=== PATIENT | female | born 1990 | race Caucasian/White ===

== ENCOUNTER 2019-12-06 18:27 | Emergency (ER) | payer OTHER, SELFPAY ==
--- NOTE | 2019-12-06 20:28 | ER ---
Nurse's Notes [facility] Name: Opal Tapia Age: 28 yrs Sex: Female : 1990 Arrival Date: 12/06/2019 Time: 18:31 Bed 19 Private MD: Diagnosis: Cellulitis and acute lymphangitis of other parts of limb;Fever of other and unknown origin Presentation: 12/05 18:48 Chief complaint: Patient states: Spider bite on Tuesday, went to [facility] and they gave me jl7 Keflex yesterday, woke this morning and it's a lot more painful today with redness and hot to touch. Also feels sort of numb and tingly. Coronavirus screen: The patient has NOT traveled to a country currently being monitored by the CDC within the last 14 days. Proceed with normal triage procedures. The patient has NOT had contact with any known and/or suspected case of coronavirus. Proceed with normal triage procedures. Ebola Screen: No symptoms or risks identified at this time. Initial Sepsis Screen: Does the patient meet any 2 criteria? HR > 90 bpm. No. Patient's initial sepsis screen is negative. Does the patient have a suspected source of infection? Yes: Skin breakdown/wound. Risk Assessment: Do you want to hurt yourself or someone else? Patient reports no desire to harm self or others. Onset of symptoms was November 30, 2019. 18:48 Method Of Arrival: Ambulatory [facility] 18:48 Acuity: MER 3 jl7 Triage Assessment: 18:53 Bite description: bite sustained to lateral aspect of left knee is infected, from jl7 insect was sustained 6 days by a spider, animal information: vaccination(s) is unknown. General: Appears in no apparent distress. uncomfortable, Behavior is calm, cooperative, appropriate for age. Pain: Complains of pain in lateral aspect of left knee Pain currently is 7 out of 10 on a pain scale. DIRECTOR IT: 18:53 LMP 11/21/2019 jl7 Historical: - Allergies: 18:53 tramadol; jl7 - Home Meds: 18:53 None [Active]; jl7 - PMHx: 18:53 Crohn's; jl7 - PSHx: 18:53 Cholecystectomy; jl7 - Immunization history:: Adult Immunizations not up to date. - Social history:: Smoking status: Reported history of juuling and/or vaping. - Family history:: not pertinent. Screenin:04 Abuse screen: Denies threats or abuse. Denies injuries from another. Nutritional rv screening: No deficits noted. Tuberculosis screening: No symptoms or risk factors identified. Fall Risk None identified. Assessment: 20:03 General: Appears in no apparent distress. Behavior is calm, cooperative. Pain: rv Complains of pain in left leg. Neuro: Level of Consciousness is awake, alert, obeys commands, Oriented to person, place, time, situation. Cardiovascular: Patient's skin is warm and dry. Respiratory: Airway is patent. Derm: Skin Skin is pink, warm \T\ dry. Abscess located on left leg. Vital Signs: 18:48 BP 124 / 84; Pulse 94; Resp 17 S; Temp 100(TE); Pulse Ox 98% on R/A; Weight 53.07 kg jl7 (R); Height 5 ft. 0 in. (152.40 cm) (R); Pain 7/10; 21:27 BP 118 / 86; Pulse 89; Resp 17; Temp 99.1; Pulse Ox 100% on R/A; rv 18:48 Body Mass Index 22.85 (53.07 kg, 152.40 cm) jl7 ED Course: 18:31 Patient arrived in ED. ag5 18:52 Triage completed. jl7 18:53 Arm band placed on right wrist. jl7 19:09 Mitchell Mccurdy MD is Attending Physician. francisco 20:03 Rj Cleveland, LAINA is Primary Nurse. rv 20:04 Patient has correct armband on for positive identification. Pulse ox on. NIBP on. rv 20:26 Solomon Hadley MD is Referral Physician. francisco 21:29 Assist provider with I \T\ D: of an abscess on left LOWER LEG Set up I\T\D tray. Performed rv by Mitchell Mccurdy MD Culture sent to lab. Wound packed. 4X4s, Dressing with Neosporin and 4X4s, Patient tolerated well. Patient did not have IV access during this emergency room visit. 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 Exp: rv 10/11/2021. Lot #: [id number]. } Route: IM; Site: left deltoid; 21:28 Follow up: Response: No adverse reaction rv 21:28 Drug: Lidocaine-Epinephrine -1%: (1:100,000) 8 ml {Note: USED BY DR MCCURDY.} Volume: rv 20 ml; Route: Infiltration; 21:29 Follow up: Response: No adverse reaction rv 21:28 Drug: Zofran (Ondansetron) 4 mg Route: PO; rv 21:28 Follow up: Response: Medication administered at discharge. rv Outcome: 20:27 Discharge ordered by . [facility] 21:30 Discharged to home ambulatory. rv 21:30 Condition: good 21:30 Discharge instructions given to patient, Instructed on discharge instructions, follow up and referral plans. medication usage, wound care, Demonstrated understanding of instructions, follow-up care, medications, wound care, Prescriptions given X 4. 21:30 Patient left the ED. rv Addendum: 12/10/2019 08:05 Addendum: Culture Results: Positive wound culture. Bacteria is resistant to, has i w intermediate sensitivity, or is not tested against prescribed antibiotics. Report given to SIRIA for further evaluation and then to structural biologist for follow up with patient. Phone call Attempt #1 left voice mail with call back number. 09:58 Addendum: Culture Results: Phone call Attempt #2 pt called back, states symptoms have i w improved, no need for further intervention. Signatures: Mitchell Mccurdy MD MD cha Williams, Irene, RN Sana Bales RN RN jl7 Rj Cleveland, RN Duane Torres 5
[2019-12-06] MEDS ORDERED: LIDOCAINE 1% W/EPI 1:100,000 MDV 20 ML VIAL ONE (20:29)
[2019-12-06] MEDS ORDERED: DOXYCYCLINE 100 MG CAP PO ONE (20:29)
[2019-12-06] MEDS ORDERED: SMZ./TMP. 800/160 MG TABLET ONE (20:29)
--- NOTE | 2019-12-06 20:29 | EDPHYS ---
Physician Documentation [facility] Name: Opal Tapia Age: 28 yrs Sex: Female : 1990 Arrival Date: 12/06/2019 Time: 18:31 Bed 19 Private MD: ED Physician Mitchell Mccurdy HPI: 12/05 20:23 This 28 yrs old Female presents to ER via Ambulatory with complaints of francisco Insect Bite. 20:23 The patient presents with decreased range of motion, pain, swelling, tenderness. The francisco complaints affect the lateral aspect of left knee. Context: The problem was sustained at home, resulted from bite. Onset: The symptoms/episode began/occurred 3 day(s) ago. Modifying factors: The symptoms are alleviated by elevating leg, the symptoms are aggravated by movement, bending knee. Associated signs and symptoms: The patient has no apparent associated signs or symptoms. Treatment prior to arrival includes: prescription medications. Severity of symptoms: At their worst the symptoms were moderate, in the emergency department the symptoms are unchanged. The patient has not experienced similar symptoms in the past. 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 - Social history:: Smoking status: Reported history of juuling and/or vaping. - Family history:: not pertinent. ROS: 20:23 Constitutional: Negative for fever, chills, and weight loss, Eyes: Negative for injury, francisco pain, redness, and discharge, ENT: Negative for injury, pain, and discharge, Neck: Negative for injury, pain, and swelling, Cardiovascular: Negative for chest pain, palpitations, and edema, Respiratory: Negative for shortness of breath, cough, wheezing, and pleuritic chest pain, Abdomen/GI: Negative for abdominal pain, nausea, vomiting, diarrhea, and constipation, Back: Negative for injury and pain, : Negative for injury, bleeding, discharge, and swelling, Skin: Negative for injury, rash, and discoloration, Neuro: Negative for headache, weakness, numbness, tingling, and seizure, Psych: Negative for depression, anxiety, suicide ideation, homicidal ideation, and hallucinations, Allergy/Immunology: Negative for hives, rash, and allergies, Endocrine: Negative for neck swelling, polydipsia, polyuria, polyphagia, and marked weight changes, Hematologic/Lymphatic: Negative for swollen nodes, abnormal bleeding, and unusual bruising. 20:23 MS/extremity: Positive for pain, swelling, tenderness, of the left leg. Exam: 20:23 Constitutional: This is a well developed, well nourished patient who is awake, alert, francisco and in no acute distress. Head/Face: Normocephalic, atraumatic. Eyes: Pupils equal round and reactive to light, extra-ocular motions intact. Lids and lashes normal. Conjunctiva and sclera are non-icteric and not injected. Cornea within normal limits. Periorbital areas with no swelling, redness, or edema. ENT: Nares patent. No nasal discharge, no septal abnormalities noted. Tympanic membranes are normal and external auditory canals are clear. Oropharynx with no redness, swelling, or masses, exudates, or evidence of obstruction, uvula midline. Mucous membranes moist. Neck: Trachea midline, no thyromegaly or masses palpated, and no cervical lymphadenopathy. Supple, full range of motion without nuchal rigidity, or vertebral point tenderness. No Meningismus. Chest/axilla: Normal chest wall appearance and motion. Nontender with no deformity. No lesions are appreciated. Cardiovascular: Regular rate and rhythm with a normal S1 and S2. No gallops, murmurs, or rubs. Normal PMI, no JVD. No pulse deficits. Respiratory: Lungs have equal breath sounds bilaterally, clear to auscultation and percussion. No rales, rhonchi or wheezes noted. No increased work of breathing, no retractions or nasal flaring. Abdomen/GI: Soft, non-tender, with normal bowel sounds. No distension or tympany. No guarding or rebound. No evidence of tenderness throughout. Back: No spinal tenderness. No costovertebral tenderness. Full range of motion. Skin: Warm, dry with normal turgor. Normal color with no rashes, no lesions, and no evidence of cellulitis. Neuro: Awake and alert, GCS 15, oriented to person, place, time, and situation. Cranial nerves II-XII grossly intact. Motor strength 5/5 in all extremities. Sensory grossly intact. Cerebellar exam normal. Normal gait. Psych: Awake, alert, with orientation to person, place and time. Behavior, mood, and affect are within normal limits. 20:23 Musculoskeletal/extremity: Extremities: decreased ROM, erythema, pain, DVT Exam: negative Homans' sign noted on exam, no appreciated bluish discoloration, pain, swelling, tenderness, erythema, increased warmth, that is moderate, of the left leg. Vital Signs: 18:48 BP 124 / 84; Pulse 94; Resp 17 S; Temp 100(TE); Pulse Ox 98% on R/A; Weight 53.07 kg jl7 (R); Height 5 ft. 0 in. (152.40 cm) (R); Pain 7/10; 21:27 BP 118 / 86; Pulse 89; Resp 17; Temp 99.1; Pulse Ox 100% on R/A; rv 18:48 Body Mass Index 22.85 (53.07 kg, 152.40 cm) 7 Procedures: 20:25 I \T\ D: Incision and drainage was performed for an abscess of the left Prepped with [facility] Betadine, Anesthetized with 8 ml's 1% Lidocaine w/ Epi. Incised with #11 blade. Drained moderate amount Packed with iodoform gauze, Dressing: non-Adherent dressing. MDM: 19:09 Patient medically screened. [facility] 20:25 Data reviewed: vital signs, nurses notes. [facility] 12/05 20:22 Order name: Wound Culture [facility] 12/05 20:51 Order name: Urine Dipstick--Ancillary (enter results) [facility] 12/05 20:51 Order name: Urine --Ancillary (enter results) [facility] 12/05 20:22 Order name: Dressing - Wound; Complete Time: 20:59 [facility] 12/05 20:22 Order name: Gloves, Sterile; Complete Time: 20:59 [facility] 12/05 20:22 Order name: Setup Suture Tray; Complete Time: 20:59 [facility] 12/05 20:22 Order name: Urine Dipstick-Ancillary (obtain specimen); Complete Time: 20:59 [facility] 12/05 20:22 Order name: Urine Test (obtain specimen); Complete Time: 20:59 [facility] Administered Medications: 20:30 Drug: Doxycycline 200 mg Route: PO; rv 21:28 Follow up: Response: No adverse reaction rv 20:30 Drug: Bactrim (160 mg-800 mg (DS) 1 tablet Route: PO; rv 21:28 Follow up: Response: No adverse reaction rv 20:59 Drug: Tetanus-Diphtheria Toxoid Adult 0.5 ml {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 Exp: rv 10/11/2021. Lot #: [id number]. } Route: IM; Site: left deltoid; 21:28 Follow up: Response: No adverse reaction rv 21:28 Drug: Lidocaine-Epinephrine -1%: (1:100,000) 8 ml {Note: USED BY DR MCCURDY.} Volume: rv 20 ml; Route: Infiltration; 21:29 Follow up: Response: No adverse reaction rv 21: Drug: Zofran (Ondansetron) 4 mg Route: PO; rv 21:28 Follow up: Response: Medication administered at discharge. rv Disposition: 12/06/19 20:27 Discharged to Home. Impression: Cellulitis and acute lymphangitis of other parts of limb, Fever of other and unknown origin. - Condition is Stable. - Discharge Instructions: Skin Abscess, Insect Bite, Sjas-ol-Erno, Insect Bite, Skin Abscess, Ijsj-ed-Pzzh, Cellulitis, Adult, [id number]. - Prescriptions for Bactroban 2 % Topical Ointment - Apply to affected area 1 application by TOPICAL route every 12 hours; 30 gram. Doxycycline Hyclate 100 mg Oral Tablet - take 1 tablet by ORAL route every 12 hours; 20 tablet. Motrin IB 200 mg Oral Tablet - take 2 tablet by ORAL route every 6 hours As needed as needed with food; 30 tablet. Bactrim DS 800- 160 mg Oral Tablet - take 1 tablet by ORAL route every 12 hours for 10 days; 20 tablet. - Medication Reconciliation Form, Thank You Letter, Antibiotic Education, Prescription Opioid Use form. - Follow up: Private Physician; When: 2 - 3 days; Reason: Recheck today's complaints, Continuance of care, Re-evaluation by your physician. Follow up: Solomon Hadley MD; When: 2 - 3 days; Reason: Recheck today's complaints, Continuance of care, Re-evaluation by your physician. - Problem is new. - Symptoms have improved. Signatures: Dispatcher [employer] EDMitchell Martinez MD MD cha Leal, Jahala, RN RN jl7 Rj Cleveland, RN RN rv Corrections: (The following items were deleted from the chart) 21:30 20:27 12/06/2019 20:27 Discharged to Home. Impression: Cellulitis and acute rv lymphangitis of other parts of limb; Fever of other and unknown origin. Condition is Stable. Forms are Medication Reconciliation Form, Thank You Letter, Antibiotic Education, Prescription Opioid Use. Follow up: Private Physician; When: 2 - 3 days; Reason: Recheck today's complaints, Continuance of care, Re-evaluation by your physician. Follow up: Solomon Hadley; When: 2 - 3 days; Reason: Recheck today's complaints, Continuance of care, Re-evaluation by your physician. Problem is new. Symptoms have improved. francisco
[2019-12-06] MEDS ORDERED: TETANUS & DIPHTHERIA TOX,ADULT 0.5 ML VIAL ONE (20:52)
[2019-12-06] MEDS ORDERED: ONDANSETRON 4 MG (ODT) TAB ONE (21:25)
[2019-12-06 21:45] VITALS: BP 118/86; TEMP 99.1; O2SAT 100
[2019-12-06 22:07] LABS: Urine Blood 2+ (NEG); Urine Glucose NEGATIVE (NEG); Urine Protein NEGATIVE (NEG); Urine pH 7.5 (5.0-7.0)
== END 2019-12-06 21:30 | disposition home or self-care (01) ==
LOC: ER 18:27
PROC: 0J9P0ZZ Drainage of Left Lower Leg Subcutaneous Tissue and Fascia, Open Approach (ICD-10-PCS; principal; 2019-12-06)
DX: L03.116 Cellulitis of left lower limb (principal); L03.126 Acute lymphangitis of left lower limb; R50.9 Fever, unspecified; Z23 Encounter for immunization; Z88.5 Allergy status to narcotic agent
CPT/HCPCS: 81003; 81025; 87070; 87077; 87186; 87205; 90471; 90714; 99284

== ENCOUNTER 2019-12-08 14:05 | Emergency (ER) | payer OTHER, SELFPAY ==
--- OUTSIDE RECORDS SUMMARY | 2019-12-08 14:07 | XMS REPORT | Summary of Care ---
:1990 Author Organization [facility] Address [address] [place] [id number] Care Team Providers Name Role Phone Pcp, Patient Does Not Have A Insurance Hmo Pcp, Patient Does Not Have A Primary Care Provider Reason for Visit Reason Comments Insect Bite Auth/Cert Status Reason Specialty Diagnoses / Referred By Referred To Procedures Contact Contact [facility] [address] [place] [address] [place] [address] Encounter Details Date Type Department Care Team Description 12/04/2019 Emergency [facility] Song, Bug bite with infection , Department PAC initial encounter [address] [place] [address] [place] [address] (Primary Dx) [place] [address] [facility] [address] [place] [address] Allergies No Known Allergiesdocumented as of this encounter (statuses as of 12/04/2019) Medications Medication Sig Dispensed Refills Start Date End Date Status mupirocin 2 % Apply to area(s) 22 g 0 12/04/2019 Active ointmentIndications: 3 (three) times Bug bite with daily. infection, initial encounter cephALEXin (KEFLEX) Take 1 capsule by 30 capsule 0 12/04/2019 12/14/2019 Active 500 mg mouth 3 (three) capsuleIndications: times daily for Bug bite with 10 days. infection, initial encounter documented as of this encounter (statuses as of 12/04/2019) Active Problems No known active problemsdocumented as of this encounter (statuses as of 2019) Social History Tobacco Use Types Packs/Day Years Used Date Never Assessed Sex Assigned at Date Recorded Not on file Job Start Date Occupation Industry Not on file Not on file Not on file Travel History Travel Start Travel End No recent travel history available. documented as of this encounter Last Filed Vital Signs Vital Sign Reading Time Taken Comments Blood Pressure 128/75 12/04/2019 7:50 PM CDT Pulse 97 12/04/2019 7:50 PM CDT Temperature 36.8 C (98.2 F) 12/04/2019 7:50 PM CDT Respiratory Rate 16 12/04/2019 7:50 PM CDT Oxygen Saturation 100% 12/04/2019 7:50 PM CDT Inhaled Oxygen Concentration - - Weight 54.4 kg (120 lb) 12/04/2019 7:50 PM CDT Height 152.4 cm (5') 12/04/2019 7:50 PM CDT Body Mass Index 23.44 12/04/2019 7:50 PM CDT documented in this encounter Discharge Instructions AttachmentsThe following attachments cannot be sent through Care Everywhere.Bites and Stings, Insect (Estonian)documented in this encounter Plan of Treatment Health Maintenance Due Date Last Done Comments VARICELLA VACCINES (1 of 2 - 12/19/1992 2-dose childhood series) DTaP,Tdap,and Td Vaccines (1 - 12/19/2002 Tdap) PAP SMEAR 12/19/2012 INFLUENZA VACCINE (#1) 2019 PNEUMOCOCCAL 0-64 YEARS COMBINED Aged Out No longer eligible based on SERIES patient's age to complete this topic documented as of this encounter Procedures Procedure Name Priority Date/Time Associated Diagnosis Comments NOTICE OF PRIVACY Routine 12/04/2019 7:46 PM CDT PRACTICES CONSENT/REFUSAL FOR Routine 12/04/2019 7:46 PM CDT DIAGNOSIS AND TREATMENT documented in this encounter Results Not on filedocumented in this encounter Visit Diagnoses Diagnosis Bug bite with infection, initial encounter - Primary documented in this encounter Insurance Payer Benefit Plan / Subscriber ID Effective Dates Phone Address Type Group [facility] [place] [facility] xxxxxxxxx 2019-Present Medicaid HEALTH PLAN - HEALTH MANAGED MEDICAID documented as of this encounter
--- OUTSIDE RECORDS SUMMARY | 2019-12-08 14:07 | XMS REPORT ---
:1990 [facility] [address] [place] [address] Care Team Providers Name Role Phone DON JOE Primary Care Provider Unavailable DON JOE M.D. Unavailable Unavailable Problems This patient has no known problems. Allergies, Adverse Reactions, Alerts This patient has no known allergies or adverse reactions. Medications This patient has no known medications. Results Test Description Test Time Test Comments Text Results Atomic Results Result Comments CG, Serum, Qualitative 2017-09-05 18:00:00 Test Item Value Reference Range Comments Preg Qual [Se] (test code=BSHCG) Negative Negative
--- OUTSIDE RECORDS SUMMARY | 2019-12-08 14:07 | XMS REPORT | Summary of Care ---
:1990 Author Organization [facility] - [facility] Address [address] [place] [address] Care Team Providers Name Role Phone Pcp, Patient Does Not Have A Insurance Hmo Pcp, Patient Does Not Have A Primary Care Provider Reason for Visit Reason Comments Cellulitis Auth/Cert Status Reason Specialty Diagnoses / Referred By Referred To Procedures Contact Contact [facility] [address] [place] [id number] Encounter Details Date Type Department Care Team Description 12/06/2019 Emergency [facility]-Emergency Department Gume Cifuentes MD [address] [place] [address] [id number] [place], [place] [id number] Allergies No Known Allergiesdocumented as of this encounter (statuses as of 12/06/2019) Medications Medication Sig Dispensed Refills Start Date [...] as of this encounter (statuses as of 12/06/2019) Active Problems No known active problemsdocumented as [...] Sign Reading Time Taken Comments Blood Pressure 114/70 12/05/2019 10:57 PM CDT Pulse 95 12/05/2019 10:57 PM CDT Temperature 37.5 C (99.5 F) 12/05/2019 10:57 PM CDT Respiratory Rate 20 12/05/2019 10:57 PM CDT Oxygen Saturation 100% 12/05/2019 10:57 PM CDT Inhaled Oxygen Concentration - - Weight 53.1 kg (117 lb) 12/05/2019 10:57 PM CDT Height - - Body Mass Index 22.85 12/04/2019 7:50 PM CDT documented in this encounter Discharge Instructions InstructionsGume Cifuentes MD - 12/06/2019 RETURN FOR ANY QUESTIONS OR CONCERNS Today you were seen by Gume Cifuentes Jr., MD You were seen today for Chief Complaint Patient presents with Cellulitis Your ER diagnosis was No diagnosis found. NO LIFE-THREATENING FINDINGS ON TODAY'S EXAM. YOUR PRESCRIPTIONS : Check out [employer] for medication discounts Medication List ASK your doctor about these medications cephALEXin 500 mg capsule Commonly known as: KEFLEX Take 1 capsule by mouth 3 (three) times daily for 10 days. mupirocin 2 % ointment Commonly known as: BACTROBAN OINT Apply to area(s) 3 (three) times daily. ER precautions and follow up : 1. Return to ER if your symptoms should worsen or fail to improve within 72 hours. 2. The care provided in the emergency room was for acute problems only. 3. You should follow up with your primary care provider within 72 hours. 4. Fill and take all your medications as prescribed. 5. Make sure you are staying adequately hydrated. Busque attencion immediatamente si usted tiene los sitomas sigue, vuelve peor o si hay sitomas nuevas o para cualquiera preoccupacion incluyendo dolor del pecho , falta aire, se siente debile, mas fievre, mas dolor, nausea, vomitando, sangrando que no es normal, confusion, baja or pierdas conciencia. MAY FOLLOW-UP WITH A PROVIDER OF YOUR CHOICE, SUCH : 1. A PHYSICIAN OF YOUR CHOICE 2. [facility], . LOCATIONS IN [facility] 3. [facility], [address], [place]; OR, IF YOU WISH TO FOLLOW-UP WITHIN THE [facility], MAY TRY THESE OPTIONS (CLINIC APPOINTMENTS AVAILABLE ON [id number] BASIS): 1. SCHEDULE AN APPOINTMENT ONLINE AT [email or web address] 2. OR CALL THE [facility] AT OR 3. OR CALL YOUR [facility] PHYSICIAN'S OFFICE DIRECTLY IF YOU ARE ALREADY AN ESTABLISHED [facility] PATIENT. [facility] RETURN TO WORK / SCHOOL EXCUSE Opal Tapia WAS SEEN IN THE ER AND DISCHARGED 12/06/2019 TODAY, 12:41 AM & May return to Work / School / Incarceration on X with activity as tolerated indicated below. ___The following limitations apply until pt is seen by Physician and cleared to return to normal activity. _X_ Off for two days and return to activity as tolerated at work or school ___ No Sports ___ No work ___ Do not return until fever free for 24 hours. ___ No school GUME CIFUENTES Jr., MD [facility] [address] [place] [address] [place] [address] ### The patient may have been given Narcotic pain medications during their stay in the ED that may show up on a Drug Screen. The hospital discharge paper work will identify these medications. AttachmentsThe following attachments cannot be sent through Care Everywhere.Cellulitis, Discharge Instructions for (Latvian)documented in this encounter Plan of Treatment Health [...] Procedure Name Priority Date/Time Associated Diagnosis Comments CONSENT/REFUSAL FOR Routine 12/05/2019 10:49 PM CDT DIAGNOSIS AND TREATMENT documented in this encounter Results Not on filedocumented in this encounter Administered Medications Medication Order MAR Action Action Date Dose Rate Site cephALEXin (KEFLEX) capsule 500 Given 12/06/2019 12:52 AM CDT 500 mg mg 500 mg, Oral, ONCE, 1 dose, Yesenia 12/06/19 at 0145, EDUARDO, Reason for Anti-Infective: Documented Infection, Documented Infection Site: Skin / Soft Tissue, Duration of Therapy: Other (see Comments) traMADol (ULTRAM) tablet 50 mg Given 12/06/2019 12:54 AM CDT 50 mg 50 mg, Oral, ONCE, 1 dose, Yesneia 12/06/19 at 0200, Routine documented in this encounter Insurance Payer Benefit Plan / Subscriber ID Effective Dates Phone Address Type Group [facility] xxxxxxxxx 2019-Present Medicaid HEALTH PLAN - HEALTH MANAGED MEDICAID documented as of this encounter
--- NOTE | 2019-12-08 15:24 | ER ---
Nurse's Notes [facility] Name: Opal Tapia Age: 28 yrs Sex: Female : 1990 Arrival Date: 12/08/2019 Time: 14:09 Bed 12 Private MD: Diagnosis: Encounter for change or removal of nonsurgical wound dressing Presentation: 12/07 14:22 Chief complaint: Patient states: follow up from abscess I \T\ D, seen here a few days ago dm5 and was told to come back for follow up since she didn't have a PCP. Coronavirus screen: The patient has NOT traveled to a country currently being monitored by the [facility] within the last 14 days. Proceed with normal triage procedures. The patient has NOT had contact with any known and/or suspected case of coronavirus. Proceed with normal triage procedures. Ebola Screen: Patient negative for fever greater than or equal to 101.5 degrees Fahrenheit, and additional compatible Ebola Virus Disease symptoms Patient denies exposure to infectious person. Patient denies travel to an Ebola-affected area in the 21 days before illness onset. No symptoms or risks identified at this time. Initial Sepsis Screen: Does the patient meet any 2 criteria? No. Patient's initial sepsis screen is negative. Does the patient have a suspected source of infection? No. Patient's initial sepsis screen is negative. Risk Assessment: Do you want to hurt yourself or someone else? Patient reports no desire to harm self or others. 14:22 Method Of Arrival: Ambulatory dm5 14:22 Acuity: MER 4 dm5 Historical: - Allergies: 14:24 tramadol; dm5 - PMHx: 15:16 Crohn's; ss - PSHx: 15:16 Cholecystectomy; ss - Immunization history:: Adult Immunizations up to date. - Social history:: Smoking status: unknown. Screenin:25 Abuse screen: Denies threats or abuse. Denies injuries from another. Nutritional ss screening: No deficits noted. Tuberculosis screening: Never had TB. Fall Risk None identified. Assessment: 15:02 General: Appears in no apparent distress. comfortable, Behavior is calm, cooperative, ss Denies fever, feeling ill, fatigue, chills. Pain: Complains of pain in lateral aspect of left calf Pain currently is 5 out of 10 on a pain scale. Neuro: Level of Consciousness is awake, alert, obeys commands, Oriented to person, place, time, situation. Respiratory: Airway is patent Respiratory effort is even, unlabored, Respiratory pattern is regular, symmetrical. Derm: Skin is intact, is healthy with good turgor, Skin is dry, Skin is pink, warm \T\ dry. normal. 15:25 Derm: Abscess located on lateral aspect of left calf is quarter sized, healing well. ss Packing removed and replaced by Hermes LACEY NP. Vital Signs: 14:22 BP 102 / 66; Pulse 77; Resp 18; Temp 98.9; Pulse Ox 100% on R/A; Weight 53.07 kg; dm5 Height 5 ft. (152.40 cm); Pain 5/10; 14:22 Body Mass Index 22.85 (53.07 kg, 152.40 cm) 5 ED Course: 14:09 Patient arrived in ED. mr 14:24 Triage completed. 5 15:10 [facility] Lacey [facility]C [facility] la1 15:10 Mitchell Stiles MD is Attending Physician. la1 15:15 Whitney Edgar, LAINA is Primary Nurse. ss 15:16 Arm band placed on right wrist. ss 15:25 Patient has correct armband on for positive identification. Bed in low position. Call light in reach. 15:26 Patient did not have IV access during this emergency room visit. Recheck of abscess on ss lateral aspect of left calf is healing well. Administered Medications: No medications were administered Outcome: 15:24 Discharge ordered by . la1 15:26 Discharged to home ambulatory. 15:26 Condition: good 15:26 Discharge instructions given to patient, Instructed on discharge instructions, follow up and referral plans. medication usage, Demonstrated understanding of instructions, follow-up care, medications, wound care, Prescriptions given X 1. 15:31 Patient left the ED. Signatures: Ashlie Ayala, LAINA MARINA [facility] Arminda Yuen mr Whitney Edgar RN RN Hermes Lacey FNP-C FNP-[facility]
--- NOTE | 2019-12-08 15:25 | EDPHYS ---
Physician Documentation [facility] Name: Opal Tapia Age: 28 yrs Sex: Female : 1990 Arrival Date: 12/08/2019 Time: 14:09 Bed 12 Private MD: ED Physician Mitchell Stiles HPI: 12/07 15:38 This 28 yrs old Female presents to ER via Ambulatory with complaints of la1 Abscess Recheck. 15:38 Patient presents to ED for recheck of: abscess. The affected area is on the lateral la1 aspect of left calf. Previous treatment: The patient was initially treated 2 day(s) ago, the care was rendered at [facility], Treatment type: The patient's original treatment included an I\T\D. Progress: The patient reports decreased fever, pain, redness, swelling. The patient has not experienced similar symptoms in the past. Historical: - Allergies: 14:24 tramadol; dm5 - PMHx: 15:16 Crohn's; ss - PSHx: 15:16 Cholecystectomy; ss - Immunization history:: Adult Immunizations up to date. - Social history:: Smoking status: unknown. ROS: 15:39 Constitutional: Negative for fever, chills, and weight loss, Cardiovascular: Negative la1 for chest pain, palpitations, and edema, Respiratory: Negative for shortness of breath, cough, wheezing, and pleuritic chest pain, Abdomen/GI: Negative for abdominal pain, nausea, vomiting, diarrhea, and constipation, Back: Negative for injury and pain, : Negative for injury, bleeding, discharge, and swelling, MS/Extremity: Negative for injury and deformity. 15:39 Skin: Positive for abscess. Exam: 15:40 Constitutional: This is a well developed, well nourished patient who is awake, alert, la1 and in no acute distress. Eyes: Pupils equal round and reactive to light, extra-ocular motions intact. ENT: Mucous membranes moist. Cardiovascular: No pulse deficits. Respiratory: No increased work of breathing, MS/ Extremity: Pulses equal, no cyanosis. Neurovascular intact. Full, normal range of motion. 15:40 Skin: abscess, that is moderate sized, of the lateral aspect of left calf, Wound recheck: Abscess: the wound has improved, decreased erythema, decreased surrounding cellulitis, decreased swelling, the packing is not in place. Vital Signs: 14:22 BP 102 / 66; Pulse 77; Resp 18; Temp 98.9; Pulse Ox 100% on R/A; Weight 53.07 kg; dm5 Height 5 ft. (152.40 cm); Pain 5/10; 14:22 Body Mass Index 22.85 (53.07 kg, 152.40 cm) dm5 Procedures: 15:42 I \T\ D: Packed with sterile gauze, Dressing: sterile 4x4 gauze, the patient tolerated la1 the procedure well. MDM: 15:10 Patient medically screened. la1 15:42 Data reviewed: vital signs, nurses notes, and as a result, I will discharge patient. la1 Data interpreted: Pulse oximetry: is not applicable for this patient encounter. Counseling: I had a detailed discussion with the patient and/or guardian regarding: the historical points, exam findings, and any diagnostic results supporting the discharge/admit diagnosis, the need for outpatient follow up, a family practitioner, a general surgeon, to return to the emergency department if symptoms worsen or persist or if there are any questions or concerns that arise at home. Administered Medications: No medications were administered Disposition: 12/08/19 15:24 Discharged to Home. Impression: Encounter for change or removal of nonsurgical wound dressing. - Condition is Stable. - Discharge Instructions: How to Change Your Dressing, Wound Check, How to Change Your Dressing, [id number], Wound Packing. - Prescriptions for Zofran 4 mg Oral Tablet - take 1 tablet by ORAL route every 12 hours As needed; 20 tablet. - Medication Reconciliation Form, Thank You Letter form. - Follow up: Private Physician; When: 2 - 3 days; Reason: Recheck today's complaints, Re-evaluation by your physician. - Problem is new. - Symptoms have improved. Addendum: 12/10/2019 07:23 Co-signature as Attending Physician, Mitchell Stiles MD I agree with the assessment and c campoverde plan of care. Signatures: Ashlie Ayala, RN RN dm5 Mitchell Stiles MD MD cha Smirch, Shelby, RN RN ss Hermes Oliver, MACHINE STEMMER-C MACHINE STEMMER-Cla1 Corrections: (The following items were deleted from the chart) 12/07 15:31 15:24 12/08/2019 15:24 Discharged to Home. Impression: Encounter for change or removal ss of nonsurgical wound dressing. Condition is Stable. Forms are Medication Reconciliation Form, Thank You Letter, Antibiotic Education, Prescription Opioid Use. Follow up: Private Physician; When: 2 - 3 days; Reason: Recheck today's complaints, Re-evaluation by your physician. Problem is new. Symptoms have improved. la1
[2019-12-08 15:38] VITALS: BP 102/66; TEMP 98.9; O2SAT 100
== END 2019-12-08 15:31 | disposition home or self-care (01) ==
LOC: ER 14:05
DX: Z48.00 Encounter for change or removal of nonsurgical wound dressing (principal); Z88.6 Allergy status to analgesic agent
CPT/HCPCS: 99282

== ENCOUNTER 2021-08-11 15:53 | Emergency (ER) | payer OTHER ==
--- OUTSIDE RECORDS SUMMARY | 2021-08-11 15:57 | XMS REPORT | Continuity of Care Document ---
:1990 Author Organization [facility] t Address [address] [place] [address] Care Team Providers Name Role Phone Kimberly JOE Primary Care Physician Unavailable JONN Attending Clinician Unavailable Staci SPENCER Attending Clinician Unavailable Florencia Diaz Attending Clinician Jonn ALLAN Attending Clinician Doctor Unassigned, Name Attending Clinician Unavailable Joanthan IGLESIAS Attending Clinician Unavailable Jonathan Iglesias MD Attending Clinician Pcp, Does Not Have A Attending Clinician 2, Lab Attending Clinician Unavailable Christopher ALLAN Attending Clinician CHRISTOPHER Attending Clinician Unavailable Karyna Holt Attending Clinician KARYNA CALLAHAN Attending Clinician Unavailable DON JOE M.D. Attending Clinician Unavailable JONN Admitting Clinician Unavailable DON JOE M.D., Kimberly Admitting Clinician Unavailcirilo e Payers Payer Name Policy Type Policy Number Effective Date Expiration Date [place] [employer] [id number] 2019 HEALTH 00:00:00 Problems Condition Condition Condition Status Onset Resolution Last Treating Co mments Source Name Details Category Date Date Treatment Clinician Date Weight Weight Disease Active Overview: Univer s loss loss 02-26 Formattin ity of 00:00: g of this [place] note Medical might be Branch different from the original. Added automatic ally from request for surgery [id number] Inflammato Inflammato Disease Active Overview : Univers ry bowel ry bowel 02-26 Formattin ity of disease disease 00:00: g of [place] note Medical might be Branch different from the original. Added automatic ally from request for surgery [id number] B12 B12 Disease Active Univers deficiency deficiency 3-25 it y of 00:00: [place] 00 Medical Branch Folate Folate Disease Active 2019- Univers deficiency deficiency 3-25 it y of 00:00: [place] 00 Medical Branch Elevated Elevated Disease Active 2019- Unive rs serum serum 3-25 ity of protein protein 00:00: [place] level level 00 Medical Branch Chronic Chronic Disease Active 2019- Univers fatigue fatigue 3-22 ity of 00:00: [place] 00 Medical Branch No known No known Disease Unive rs active active ity of problems problems [facility] Chronic Chronic Disease Active Univers bronchitis bronchitis it y of [facility] Crohn Crohn Disease Active Univers disease disease ity of [facility] Asthma Asthma Disease Active Univers ity of [facility] Allergic Allergic Disease Active Unive rs rhinitis rhinitis ity of [facility] Allergies, Adverse Reactions, Alerts Allergy Allergy Status Severity Reaction(s) Onset Inactive Treating Comm ents Source Name Type Date Date Clinician TRAMADOL DRUG Active High N/V Univers INGREDI 3-20 ity of 00:00: [place] 00 [facility] Tramadol Propensi Active Nausea Univer s ty to and/or 3-20 ity of adverse Vomiting 00:00: [place] reaction 00 Medical s Branch NO KNOWN Drug Active Univers ALLERGIE Class ity of S [facility] Social History Social Habit Start Date Stop Date Quantity Comments Source Exposure to Not sure [facility] SARS-CoV-2 [facility] (event) Branch Tobacco use and 2021-02-24 2021-02-24 Never used Universit y of exposure 00:00:00 00:00:[address] [facility] Alcohol intake 2021-02-24 2021-02-24 Ex-drinker University of 00:00:00 00:00:00 (finding) [facility] Tobacco Comment 2019-12-14 2019-12-14 vaping Universit y of 00:00:00 00:00:[address] [facility] Sex Ass[birth year] At [birth year] Universit y of 00:00:00 00:00:[address] [facility] Smoking Status Start Date Stop Date Source Unknown if ever smoked Universit y of [facility] Current every day smoker 2021-02-24 00:00:[address] [facility] Medications Ordered Filled Start Stop Current Ordering Indication Dosage Frequency Signature Comments Components Source Medication Medication Date Date Medication? Clinician (SIG) Name Name LORazepam 0 2020- No .5mg 0.5 mg, [facility] ers (ATIVAN) 02-24 06- Oral, ity of tablet 0.5 08:30: 07:28 ONCE, 1 [place] mg 00 :00 dose, [facility] 02/24/21 at Branch 0330, EDUARDO peg-electro 2020-0 Yes [id number] 4000mL Take 4,000 Univers lyte soln 6-02 mL by ity of 74-6 00:00: mouth [place] .74 -5.86 00 SEE-INSTRU Medi dilia gram CTIONS. Branch solution Take as directed peg-electro 2020-0 Yes [id number] 4000mL Take 4,000 Univers lyte soln 6-02 mL by ity of - 00:00: mouth [place] .74 -5.86 00 SEE-INSTRU Medi dilia gram CTIONS. Branch solution Take as directed peg-electro 2020-0 Yes [id number] 4000mL Take 4,000 Univers lyte soln 6-02 mL by ity of - 00:00: mouth [place] .74 -5.86 00 SEE-INSTRU Medi dilia gram CTIONS. Branch solution Take as directed ondansetron 2019-0 2020- No Take by U nivers HCl (ZOFRAN 4-10 04-10 mouth. ity o f ORAL) 21:49: 00:00 [place] 37 :00 [facility] Branch ondansetron 2020-0 Yes [id number] 4mg Take 1 Univers 4 mg tablet 4-10 tablet by ity of 00:00: mouth [place] 00 every 8 Medical (eight) Branch hours as needed for Nausea and Vomiting (N/V). ondansetron 2020-0 Yes [id number] 4mg Take 1 Univers 4 mg tablet 4-10 tablet by ity of 00:00: mouth [place] 00 every 8 Medical (eight) Branch hours as needed for Nausea and Vomiting (N/V). ondansetron 2020-0 Yes [id number] 4mg Take 1 Univers 4 mg tablet 4-10 tablet by ity of 00:00: mouth [place] 00 every 8 Medical (eight) Branch hours as needed for Nausea and Vomiting (N/V). ondansetron 2020-0 Yes [id number] 4mg Take 1 Univers 4 mg tablet 4-10 tablet by ity of 00:00: mouth [place] 00 every 8 Medical (eight) Branch hours as needed for Nausea and Vomiting (N/V). ondansetron 2020-0 Yes [id number] 4mg Take 1 Univers 4 mg tablet 4-10 tablet by ity of 00:00: mouth [place] 00 every 8 Medical (eight) Branch hours as needed for Nausea and Vomiting (N/V). vitamin 2020-0 Yes [id number] 1000ug Take 1 U nivers B-12 1,000 3-25 tablet by ity of mcg tablet 00:00: mouth [place] 00 daily. Medical Branch foLIC acid 2020-0 Yes [id number] 1mg Take 1 Univers 1 mg tablet 3-25 tablet by ity of 00:00: mouth [place] 00 daily. Medical Branch vitamin 2020-0 Yes [id number] 1000ug Take 1 U nivers B-12 1,000 3-25 tablet by ity of mcg tablet 00:00: mouth [place] 00 daily. Medical Branch foLIC acid 2020-0 Yes [id number] 1mg Take 1 Univers 1 mg tablet 3-25 tablet by ity of 00:00: mouth [place] 00 daily. Medical Branch vitamin 2020-0 Yes [id number] 1000ug Take 1 U nivers B-12 1,000 3-25 tablet by ity of mcg tablet 00:00: mouth [place] 00 daily. [facility] Branch foLIC acid 2020-0 Yes [id number] 1mg Take 1 Univers 1 mg tablet 3-25 tablet by ity of 00:00: mouth [place] 00 daily. Medical Branch vitamin 2020-0 Yes [id number] 1000ug Take 1 U nivers B-12 1,000 3-25 tablet by ity of mcg tablet 00:00: mouth [place] 00 daily. [facility] Branch foLIC acid 2020-0 Yes [id number] 1mg Take 1 Univers 1 mg tablet 3-25 tablet by ity of 00:00: mouth [place] 00 daily. [facility] Branch vitamin 2020-0 Yes [id number] 1000ug Take 1 U nivers B-12 1,000 3-25 tablet by ity of mcg tablet 00:00: mouth [place] 00 daily. [facility] Branch foLIC acid 2020-0 Yes [id number] 1mg Take 1 Univers 1 mg tablet 3-25 tablet by ity of 00:00: mouth [place] 00 daily. [facility] Branch vitamin 2020-0 Yes [id number] 1000ug Take 1 U nivers B-12 1,000 3-25 tablet by ity of mcg tablet 00:00: mouth [place] 00 daily. Medical Branch foLIC acid 2020-0 Yes [id number] 1mg Take 1 Univers 1 mg tablet 3-25 tablet by ity of 00:00: mouth [place] 00 daily. Medical Branch vitamin 2020-0 Yes [id number] 1000ug Take 1 U nivers B-12 1,000 3-25 tablet by ity of mcg tablet 00:00: mouth [place] 00 daily. Medical Branch foLIC acid 2020-0 Yes [id number] 1mg Take 1 Univers 1 mg tablet 3-25 tablet by ity of 00:00: mouth [place] 00 daily. Medical Branch sulfamethox 2020-0 2020- No Take by U nivers azole/trime 3-20 03-20 mouth. ity o f thoprim 20:21: 00:00 [place] (SMZ-TMP DS 36 :00 Medical ORAL) Branch sulfamethox 2020-0 2020- No Take by U nivers azole/trime 3-20 03-20 mouth. ity o f thoprim 20:21: 00:00 [place] (SMZ-TMP DS 36 :00 Medical ORAL) Branch ondansetron 2020-0 Yes Take by Un kehinde HCl (ZOFRAN 3-20 mouth. ity of ORAL) 19:46: [place] [address] Medical Branch ondansetron 2020-0 Yes Take by Un kehinde HCl (ZOFRAN 3-20 mouth. ity of ORAL) 19:46: [place] [address] Medical Branch ondansetron 2020-0 Yes Take by Un kehinde HCl (ZOFRAN 3-20 mouth. ity of ORAL) 19:46: [place] [address] Medical Branch ondansetron 2020-0 Yes Take by Un kehinde HCl (ZOFRAN 3-20 mouth. ity of ORAL) 19:46: [place] [address] Medical Branch ondansetron 2020-0 Yes Take by Un kehinde HCl (ZOFRAN 3-20 mouth. ity of ORAL) 19:46: [place] [address] Medical Branch albuterol 2020-0 Yes [id number] 2{puff} Inhale 2 Univers 90 3-20 Puffs ity of mcg/actuati 00:00: every 6 [place] as on inhaler 00 (six) Medical hours as Branch needed for Wheezing or Shortness of Breath. albuterol 0 Yes [id number] 2{puff} Inhale 2 Univers 90 3-20 Puffs ity of mcg/actuati 00:00: every 6 [place] on inhaler 00 (six) Medical hours as Branch needed for Wheezing or Shortness of Breath. albuterol 0 Yes [id number] 2{puff} Inhale 2 Univers 90 3-20 Puffs ity of mcg/actuati 00:00: every 6 [place] on inhaler 00 (six) Medical hours as Branch needed for Wheezing or Shortness of Breath. albuterol 0 Yes [id number] 2{puff} Inhale 2 Univers 90 3-20 Puffs ity of mcg/actuati 00:00: every 6 [place] on inhaler 00 (six) Medical hours as Branch needed for Wheezing or Shortness of Breath. albuterol 0 Yes [id number] 2{puff} Inhale 2 Univers 90 3-20 Puffs ity of mcg/actuati 00:00: every 6 [place] on inhaler 00 (six) Medical hours as Branch needed for Wheezing or Shortness of Breath. albuterol 0 Yes [id number] 2{puff} Inhale 2 Univers 90 3-20 Puffs ity of mcg/actuati 00:00: every 6 [place] on inhaler 00 (six) Medical hours as Branch needed for Wheezing or Shortness of Breath. albuterol 0 Yes [id number] 2{puff} Inhale 2 Univers 90 3-20 Puffs ity of mcg/actuati 00:00: every 6 [place] on inhaler 00 (six) Medical hours as Branch needed for Wheezing or Shortness of Breath. albuterol 0 Yes [id number] 2{puff} Inhale 2 Univers 90 3-20 Puffs ity of mcg/actuati 00:00: every 6 [place] on inhaler 00 (six) Medical hours as Branch needed for Wheezing or Shortness of Breath. albuterol 0 Yes [id number] 2{puff} Inhale 2 Univers 90 3-20 Puffs ity of mcg/actuati 00:00: every 6 [place] on inhaler 00 (six) Medical hours as Branch needed for Wheezing or Shortness of Breath. albuterol 0 Yes [id number] 2{puff} Inhale 2 Univers 90 3-20 Puffs ity of mcg/actuati 00:00: every 6 [place] on inhaler 00 (six) Medical hours as Branch needed for Wheezing or Shortness of Breath. sulfamethox 2019- No [id number] 1{tbl} Take 1 Univers azole-trime 3-20 -25 [id number] tablet by ity of thoprim 00:00: 04:59 mouth 2 [place] (BACTRIM 00 :00 (two) Medical DS) 800-160 times Branch mg per daily for tablet 4 days. sulfamethox 2019- No [id number] 1{tbl} Take 1 Univers azole-trime 3-20 -25 [id number] tablet by ity of thoprim 00:00: 04:59 mouth 2 [place] (BACTRIM 00 :00 (two) Medical DS) 800-160 times Branch mg per daily for tablet 4 days. sulfamethox 2019- No [id number] 1{tbl} Take 1 Univers azole-trime 3-20 - [id number] tablet by ity of thoprim 00:00: 04:59 mouth 2 [place] (BACTRIM 00 :00 (two) Medical DS) 800-160 times Branch mg per daily for tablet 4 days. fluconazole 2019- No [id number] 150mg Take 1 Univers 150 mg 3-20 -21 tablet by ity of tablet 00:00: 04:59 mouth [place] 00 :00 now for 1 Medical dose. May Branch repeat in 3-4 days. fluconazole 2019- No [id number] 150mg Take 1 Univers 150 mg 3-20 -21 tablet by ity of tablet 00:00: 04:59 mouth [place] 00 :00 now for 1 Medical dose. May Branch repeat in 3-4 days. fluconazole 2019- No [id number] 150mg Take 1 Univers 150 mg 3-20 03-21 tablet by ity of tablet 00:00: 04:59 mouth [place] 00 :00 now for 1 Medical dose. May Branch repeat in 3-4 days. ondansetron 2019- No 1{tbl} Take 1 U nivers 4 mg tablet 3-15 04-10 tablet by it y of 00:00: 00:00 mouth [place] 00 :00 every 8 Medical (eight) Branch hours as needed for Nausea. traMADol 2019-0 2020- No 50mg 50 mg, Univer s (ULTRAM) 12-05 Oral, ity of tablet 50 07:00: 05:54 ONCE, 1 [place] mg 00 :00 dose, [facility] Medical 12/06/19 at Branch 0200, Routine cephALEXin 2019-0 2020- No 500mg 500 mg, Un kehinde (KEFLEX) 12-05 Oral, ity of capsule 500 06:45: 05:52 ONCE, 1 [place] mg 00 :00 dose, [facility] 12/06/19 at Branch 0145, EDUARDO
Re ason for Anti-Infec tive: Documented Infection< br>Documen alexia Infection Site: Skin / Soft Tissue
Duration of Therapy: Other (see Comments) mupirocin 2 2020-0 Yes [id number] Apply to Univers % ointment 3-10 area(s) 3 ity of 00:00: (three) [place] 00 times Medical daily. Branch mupirocin 2 2020-0 Yes [id number] Apply to Univers % ointment 3-10 area(s) 3 ity of 00:00: (three) [place] 00 times Medical daily. Branch mupirocin 2 2020-0 Yes [id number] Apply to Univers % ointment 3-10 area(s) 3 ity of 00:00: (three) [place] 00 times Medical daily. Branch mupirocin 2 2020-0 Yes [id number] Apply to Univers % ointment 3-10 area(s) 3 ity of 00:00: (three) [place] 00 times Medical daily. Branch mupirocin 2 2020-0 Yes [id number] Apply to Univers % ointment 3-10 area(s) 3 ity of 00:00: (three) [place] 00 times Medical daily. Branch mupirocin 2 2020-0 Yes [id number] Apply to Univers % ointment 3-10 area(s) 3 ity of 00:00: (three) [place] 00 times Medical daily. Branch mupirocin 2 2020-0 Yes [id number] Apply to Univers % ointment 3-10 area(s) 3 ity of 00:00: (three) [place] 00 times Medical daily. Branch mupirocin 2 2020-0 Yes [id number] Apply to Univers % ointment 3-10 area(s) 3 ity of 00:00: (three) [place] 00 times Medical daily. Branch mupirocin 2 2020-0 Yes [id number] Apply to Univers % ointment 3-10 area(s) 3 ity of 00:00: (three) [place] 00 times Medical daily. Branch mupirocin 2 2020-0 Yes [id number] Apply to Univers % ointment 3-10 area(s) 3 ity of 00:00: (three) [place] 00 times Medical daily. Branch mupirocin 2 2020-0 Yes [id number] Apply to Univers % ointment 3-10 area(s) 3 ity of 00:00: (three) [place] 00 times Medical daily. Branch mupirocin 2 2020-0 Yes [id number] Apply to Univers % ointment 3-10 area(s) 3 ity of 00:00: (three) [place] 00 times Medical daily. Branch mupirocin 2 2020-0 Yes [id number] Apply to Univers % ointment 3-10 area(s) 3 ity of 00:00: (three) [place] 00 times Medical daily. Branch mupirocin 2 2020-0 Yes [id number] Apply to Univers % ointment 3-10 area(s) 3 ity of 00:00: (three) [place] 00 times Medical daily. Branch cephALEXin 2020-0 2020- No [id number] 500mg Take 1 Univers (KEFLEX) 3-10 -21 capsule by ity of 500 mg 00:00: 04:59 mouth 3 [place] capsule 00 :00 (three) Medical times Branch daily for 10 days. cephALEXin 2020-0 2020- No [id number] 500mg Take 1 Univers (KEFLEX) 3-10 -21 capsule by ity of 500 mg 00:00: 04:59 mouth 3 [place] capsule 00 :00 (three) Medical times Branch daily for 10 days. cephALEXin 2020-0 2020- No [id number] 500mg Take 1 Univers (KEFLEX) 3-10 -21 capsule by ity of 500 mg 00:00: 04:59 mouth 3 [place] capsule 00 :00 (three) Medical times Branch daily for 10 days. cephALEXin 2020- 2020- No [id number] 500mg Take 1 Univers (KEFLEX) 310 -21 capsule by ity of 500 mg 00:00: 04:59 mouth 3 [place] capsule 00 :00 (three) Medical times Branch daily for 10 days. cephALEXin 2020- 2020- No [id number] 500mg Take 1 Univers (KEFLEX) 3-10 -20 capsule by ity of 500 mg 00:00: 00:00 mouth 3 [place] capsule 00 :00 (three) Medical times Branch daily for 10 days. cephALEXin 2019- 2020- No [id number] 500mg Take 1 Univers (KEFLEX) 3-20 capsule by ity of 500 mg 00:00: 00:00 mouth 3 [place] capsule 00 :00 (three) Medical times Branch daily for 10 days. Immunizations Ordered Filled Immunization Date Status Comments [facility] e Immunization Name Name Tdap 2019-12-10 Completed University of 00:00:[address] [facility] Tdap 2019-12-10 Completed University of 00:00:00 [place] [facility] Tdap 2019-12-10 Completed University of 00:00:00 [place] [facility] [place] Tdap 2019-12-10 Completed University of 00:00:00 [place] [facility] Tdap 2019-12-10 Completed University of 00:00:00 [place] [facility] Tdap 2019-12-10 Completed University of 00:00:00 [place] [facility] [place] Tdap 2019-12-10 Completed University of 00:00:00 [place] [facility] [place] TDAP 2019-12-10 Completed University of 00:00:00 [place] [facility] TDAP 2019-12-10 Completed University of 00:00:00 [facility] Branch Tdap 2019-12-10 Completed University of 00:00:[address] [facility] Vital Signs Vital Name Observation Time Observation Value Comments Source Systolic blood 2021-02-24 10:30:00 112 mm[Hg] Univer sity of pressure [facility] Diastolic blood 2021-02-24 10:30:00 87 mm[Hg] Unive rsity of pressure [facility] Heart rate 2021-02-24 10:30:00 94 [facility] Respiratory rate 2021-02-24 10:30:00 16 /min Univ ersity of [facility] Oxygen saturation in 2021-02-24 10:30:00 99 /min University of Arterial blood by [place] dilia Pulse oximetry Branch Body weight 2021-02-24 07:20:00 43.092 kg Universi ty of [place] [facility] BMI 2021-02-24 07:20:00 18.55 kg/m2 Universi ty of [place] [facility] Body temperature 2021-02-24 07:11:00 37.56 [place] Univ ersity of [place] [facility] Systolic blood 2019-12-14 19:43:00 125 mm[Hg] Univer sity of pressure [place] [facility] Diastolic blood 2019-12-14 19:43:00 82 mm[Hg] Unive rsity of pressure [place] [facility] Heart rate 2019-12-14 19:43:00 63 /min Universi ty of [place] [facility] Body height 2019-12-14 19:43:00 152.4 cm Universi ty of [place] [facility] [place] Body weight 2019-12-14 19:43:00 52.617 kg Universi ty of [place] [facility] BMI 2019-12-14 19:43:00 22.65 kg/m2 Universi ty of [place] [facility] Oxygen saturation in 2019-12-14 19:43:00 100 /min University of Arterial blood by [place] dilia Pulse oximetry Branch Systolic blood 2019-12-06 03:57:00 114 mm[Hg] Univer sity of pressure [place] [facility] Diastolic blood 2019-12-06 03:57:00 70 mm[Hg] Unive rsity of pressure [place] [facility] Heart rate 2019-12-06 03:57:00 95 /min Universi ty of [place] [facility] [place] Body temperature 2019-12-06 03:57:00 37.5 [place] Univ ersity of [place] [facility] Respiratory rate 2019-12-06 03:57:00 20 /min Univ ersity of [place] [facility] Body weight 2019-12-06 03:57:00 53.071 kg Universi ty of [place] [facility] BMI 2019-12-06 03:57:00 22.85 kg/m2 Universi ty of [place] [facility] Oxygen saturation in 2019-12-06 03:57:00 100 /min University of Arterial blood by [place] [facility] dilia Pulse oximetry Branch Systolic blood 2019-12-05 00:50:00 128 mm[Hg] Univer sity of pressure [place] [facility] Diastolic blood 2019-12-05 00:50:00 75 mm[Hg] Unive rsity of pressure [facility] Heart rate 2019-12-05 00:50:00 97 /min [facility] Body temperature 2019-12-05 00:50:00 36.78 [facility] Respiratory rate 2019-12-05 00:50:00 16 /min [facility] Body height 2019-12-05 00:50:00 152.4 cm [facility] Body weight 2019-12-05 00:50:00 54.432 kg [facility] BMI 2019-12-05 00:50:00 23.44 kg/m2 [facility] Oxygen saturation in 2019-12-05 00:50:00 100 /min [facility] Arterial blood by [facility] Pulse oximetry Branch Procedures Procedure Date / Time Performing Clinician Source Performed DISCLOSURE AND CONSENT, 2020-02-26 05:01:00 [facility] [place] [facility] PROCEDURES ASSIGNMENT OF BENEFITS 2019-12-14 19:26:11 Doctor Unassigned, Un [facility] [place] [facility] EMERGENCY SERVICES 2019-12-06 05:01:00 Doctor Christian, [facility] AGREEMENTS AND [place] [facility] AUTHORIZATIONS CONSENT/REFUSAL FOR 2019-12-06 03:49:05 Doctor Gonzales [facility] DIAGNOSIS AND TREATMENT [place] [facility] NOTICE OF PRIVACY 2019-12-05 00:46:32 Doctor Christian, [facility] PRACTICES [place] [facility] CONSENT/REFUSAL FOR 2019-12-05 00:46:11 Doctor Christian [facility] DIAGNOSIS AND TREATMENT [facility] [place] Encounters Start End Encounter Admission Attending Care Care Encounter Source Date/Time Date/Time Type Type Clinicians Facility Department ID 2021-07-26 Emergency [facility] [id number] Univers 22:16:08 [facility] 2021-07-24 Outpatient R JONN [facility] [id number] Univers 00:12:56 JORGE [facility] 2021-05-13 2021-05-13 Outpatient Kristy SPENCER [facility] [id number] Univers 15:30:00 15:30:00 [place] [id number] [facility] 2021-05-13 2021-05-13 Outpatient R ADUM, [facility] [id number] Univers 15:30:00 15:30:00 [place] [facility] 2021-02-24 2021-02-24 [facility] [id number] Univers 02:21:00 05:41:00 Filomena Florencia Boone [id number] i ty of [place] [id number] [facility] [id number] [address] 2020-06-05 2020-06-05 Outpatient R ADUM, [facility] [id number] Univers 15:00:00 15:00:00 [place] [facility] 2020-05-28 2020-05-28 Outpatient R JOHANNA, [facility] [id number] Univers 15:00:00 15:00:00 [place] [facility] 2020-05-28 2020-05-28 Outpatient R JOHANNA, [facility] [id number] Univers 15:00:00 15:00:00 [place] [facility] 2020-03-07 2020-03-07 Outpatient R [facility] [id number] Univers 13:15:00 13:15:[id number] [place] [address] 2020-03-07 2020-03-07 [facility] [id number] Univers 00:00:00 00:00:00 Jorge Boone [id number] i ty of [place] [id number] [facility] [id number] [place] [address] 2020-02-26 2020-02-26 Outpatient R JONN, [facility] [id number] Univers 14:30:00 14:30:00 JORGE [facility] 2020-02-26 2020-02-26 [facility] [id number] Univers 14:30:00 14:30:00 JORGE [facility] 2020-02-26 2020-02-26 Orders Doctor CANDELARIO [id number] Univers 00:00:00 00:00:00 Only Unassigned, JUAN MANUEL [id number] ity of [facility] [id number] [place] [id number] [address] 2020-01-29 2020-01-29 Outpatient R STAN [facility] [id number] Univers 10:00:00 10:00:00 WONDIFUL [id number] ity o f [facility] 2020-01-29 2020-01-29 [facility] [id number] Univers 10:00:00 10:00:00 WONDIFUL ity o f [facility] 2020-01-29 2020-01-29 [facility]ici [facility] [id number] Univers 07:31:16 07:46:16 ne Visit Wondiful A [place] [id number] ity of [id number] [phone] [address] 2020-01-04 2020-01-04 Telephone [facility] [id number] Univers 00:00:00 00:00:00 Patient Health [id number] it y of [id number] [place] Profess[place] [phone] [place] dic[address] Office Building One 2019-12-19 2019-12-19 Case Stan [facility] [id number] Univers 00:00:00 00:00:00 Management Wondiful A Health [id number] ity of [place] [id number] [place] Professio [phone] [address] Office [facility] 2019-12-19 2019-12-19 Telephone [facility] [id number] Univers 00:00:00 00:00:00 Wondiful A Health [id number] ity of [place] [id number] [place] Professio [phone] [address] Office [facility] 2019-12-14 2019-12-14 Plastic Surgery Nurse 2, Adc Lab [facility] [id number] Univers 15:28:48 15:43:48 Visit Fabian Iglesias Mely [id number]. 10 ity of [id number] [phone] Pa dical nal [address] [facility] 2019-12-14 2019-12-14 Office Stan [facility] [id number] Univers 14:27:17 15:27:30 Visit Fabian Castillo [facility] [id number] ity of [place] [id number] [place] Professio [phone] Pa dical nal [address] [place] Office [facility] 2019-12-14 2019-12-14 Outpatient R [facility] [id number] Univers 15:15:00 15:15:00 [id number]y of [facility] 2019-12-14 2019-12-14 [facility] [id number] Univers 14:30:00 14:30:00 WONDIFUL ity o f [facility] 2019-12-14 2019-12-14 Orders Doctor KODAK [id number] Univers 00:00:00 00:00:00 Only Unassigned, JUAN MANUEL [id number] ity of [facility] [id number] [place] as [phone] [facility] [address] [place] 2019-12-06 2019-12-06 Emergency [facility] [id number] Univers 00:15:42 01:15:00 Deanna Boone [id number] i ty of [id number] [phone] [facility] [address] [place] 2019-12-06 2019-12-06 Emergency X [facility] ERT [id number] Univers 00:15:42 00:15:42 DEANNA gonzalez of [facility] 2019-12-06 2019-12-06 Orders Doctor KODAK [id number] Univers 00:00:00 00:00:00 Only Unassigned, JUAN MANUEL [id number] ity of [facility] [id number] [place] [phone] [facility] [address] [place] 2019-12-04 2019-12-04 Emergency Roopa Callahan [facility] [id number] Univers 19:53:28 20:43:00 Karyna Boone [id number] i ty of [id number] [phone] [facility] [address] [place] 2019-12-04 2019-12-04 Emergency X Roopa CALLAHAN [facility] ERT [id number] Univers 19:53:28 19:53:[address] [facility] Results Test Description Test Time Test Comments Results Result Comments Source CG, Serum, Qualitative 2017-09-05 18:00:00 Test Item Value Reference Range Interpretation Comme nts Preg Qual [Se] (test code = BSHCG) Negative Negative N
[2021-08-11 17:41] LABS: Urine Blood Negative (Negative); Urine Glucose Negative (Negative); Urine Protein Negative (Negative); Urine Specific Gravity <=1.005 (1.005-1.030); Urine pH 5.5 (5.0-7.0)
[2021-08-11 18:03] LABS: Absolute Lymphocytes (CBC) 1.7 K/uL (0.7-4.9); Basophils % 0.3 % (0-1.3); Hematocrit 44.6 % (36.0-45.0); Lymphocytes % 23.4 % (15.3-44.8); MPV 8.8 fL (7.6-11.3); RBC Red Blood Cell Count 4.77 M/uL (3.86-4.86)
[2021-08-11 18:18] LABS: Urine Bacteria <20 /HPF (<20); Urine Mucus 1+ /HPF (NONE SEEN); Urine RBC <5 /HPF (NONE SEEN)
[2021-08-11 18:26] LABS: Albumin 3.9 g/dL (3.4-5.0); Bilirubin Direct 0.1 mg/dL (0-0.2); Bilirubin Total 0.4 mg/dL (0.2-1.0); Potassium 3.3 mmol/L (3.5-5.1); Protein, Total 7.7 g/dL (6.4-8.2)
--- NOTE | 2021-08-11 19:00 | RAD REPORT ---
EXAM DESCRIPTION: CTAbdomen Pelvis W Contrast - 08/11/2021 6:44 pm CLINICAL HISTORY: ABD PAIN COMPARISON: CHEST SINGLE VIEW dated 01/15/2011; CHEST SINGLE VIEW dated 01/12/2011; CHEST SINGLE VIEW dated 01/11/2011No comparisons TECHNIQUE: CT of the abdomen and pelvis was performed. All CT scans are performed using dose optimization technique as appropriate and may include automated exposure control or mA/KV adjustment according to patient size. FINDINGS: Lower chest: No acute abnormality. Liver: No acute abnormality or suspicious lesions. Biliary: Cholecystectomy. Stomach: No significant focal abnormality. Duodenum: No significant focal abnormality. Pancreas: No significant abnormality. Spleen: No significant abnormality. Adrenal: No suspicious lesions. Kidney/ureter: No hydronephrosis. 11 mm stone in the lower pole of the left kidney. Retroperitoneum: No retroperitoneal adenopathy. Vascular: No aneurysm. Bowel: No significant focal abnormality. Normal appendix. Peritoneum: Small volume pelvic free fluid. Bladder: Grossly unremarkable. Reproductive: No adnexal masses. IUD. Bones: No acute fracture. Other: n/a IMPRESSION: No acute intra-abdominal or pelvic finding. Nonobstructive left nephrolithiasis.
--- NOTE | 2021-08-11 19:04 | ER ---
Nurse's Notes [facility] Name: Opal Tapia Age: 30 yrs Sex: Female : 1990 Arrival Date: 08/11/2021 Time: 15:56 Bed 9 Private MD: Diagnosis: Diarrhea, unspecified;Dysuria Presentation: 08/11 16:26 Chief complaint: Patient states: Diarrhea for 5 days. L flank pain, nausea, low grade ll1 fever, dysuria for 3 days. Coronavirus screen: Vaccine status: Patient reports being unvaccinated. Client denies travel out of the [place] in the last 14 days. At this time, the client does not indicate any symptoms associated with coronavirus-19. Ebola Screen: Patient denies travel to an Ebola-affected area in the 21 days before illness onset. Initial Sepsis Screen: Does the patient meet any 2 criteria? No. Patient's initial sepsis screen is negative. Does the patient have a suspected source of infection? Yes: Dysuria/Frequency/Urgency/UTI. Risk Assessment: Do you want to hurt yourself or someone else? Patient reports no desire to harm self or others. Onset of symptoms was August 06, 2021. 16:26 Method Of Arrival: Ambulatory ll1 16:26 Acuity: MER 3 ll1 Historical: - Allergies: 16:26 tramadol; ll1 - PMHx: 16:26 Crohn's; Asthma; kidney stones; ll1 - PSHx: 16:26 Cholecystectomy; LEEP; ll1 - Immunization history:: Client reports having NOT received the Covid vaccine. Flu vaccine status is unknown. - Social history:: Smoking status: Reported history of juuling and/or vaping. Patient denies any tobacco usage or history of. - Family history:: not pertinent. - Hospitalizations: : No recent hospitalization is reported. Screenin:36 Abuse screen: Denies threats or abuse. Denies injuries from another. Nutritional ld1 screening: No deficits noted. Tuberculosis screening: No symptoms or risk factors identified. Fall Risk None identified. Assessment: 17:36 General: Appears in no apparent distress. comfortable, Behavior is calm, cooperative, ld1 appropriate for age. Pain: Complains of pain in left low back and right low back Pain does not radiate. Pain currently is 6 out of 10 on a pain scale. Quality of pain is described as throbbing, Pain began gradually, 2-3 days ago. Is continuous. Neuro: Level of Consciousness is awake, alert, obeys commands, Oriented to person, place, time, situation, Appropriate for age. Cardiovascular: Capillary refill < 3 seconds Patient's skin is warm and dry. Respiratory: Airway is patent Respiratory effort is even, unlabored, Respiratory pattern is regular, symmetrical. GI: Abdomen is flat, non-distended. GI: Reports diarrhea. : Reports pain in bilateral flank(s). EENT: No signs and/or symptoms were reported regarding the EENT system. Derm: No signs and/or symptoms reported regarding the dermatologic system. Musculoskeletal: No signs and/or symptoms reported regarding the musculoskeletal system. 19:00 Reassessment: Patient appears in no apparent distress at this time. Patient and/or vg1 family updated on plan of care and expected duration. Pain level reassessed. Patient is alert, oriented x 3, equal unlabored respirations, skin warm/dry/pink. Denies pain but states ABD tenderness. Vital Signs: 16:26 BP 125 / 87; Pulse 80; Resp 16; Temp 98.2; Pulse Ox 100% ; Height 5 ft. 0 in. (152.40 ll1 cm); Pain 4/10; 17:36 BP 122 / 86; Pulse 79; Resp 18; Pulse Ox 100% ; Pain 6/10; ld1 18:59 BP 126 / 82; Pulse 96; Resp 14; Pulse Ox 100% ; vg1 ED Course: 15:56 Patient arrived in ED. as 16:26 Arm band placed on. ll1 16:28 Triage completed. ll1 17:31 Ana Ochoa, RN is Primary Nurse. ld1 17:33 Santhosh Boykin MD is Attending Physician. rn 17:36 Patient has correct armband on for positive identification. Bed in low position. Call ld1 light in reach. Side rails up X2. Pulse ox on. NIBP on. Door closed. Noise minimized. Warm blanket given. 17:36 No provider procedures requiring assistance completed. ld1 17:39 Urine Culture Sent. ld1 17:39 Urine Microscopic Only Sent. ld1 18:43 CT Abd/Pelvis - IV Contrast Only In Process Unspecified. EDMS 19:20 IV discontinued, intact, bleeding controlled, No redness/swelling at site. ld1 Administered Medications: No medications were administered Outcome: 19:03 Discharge ordered by . rn 19:18 Discharged to home ambulatory. ld1 19:18 Condition: stable 19:18 Discharge instructions given to patient, Instructed on discharge instructions, follow up and referral plans. medication usage, Demonstrated understanding of instructions, follow-up care, medications, Prescriptions given X 2. 19:20 Patient left the ED. ld1 Signatures: Dispatcher [employer] EDTea Good Roman, MD MD rn Garcia, Elizabeth RN RN vg1 Kiko Hoskins RN RN ll1 Ana Ochoa RN RN ld1
--- NOTE | 2021-08-11 19:04 | EDPHYS ---
Physician Documentation [facility] Name: Opal Tapia Age: 30 yrs Sex: Female : 1990 Arrival Date: 08/11/2021 Time: 15:56 Bed 9 Private MD: ED Physician Santhosh Boykin HPI: 08/11 18:03 This 30 yrs old Female presents to ER via Ambulatory with complaints of rn Urinary Problem, abdominal pain. 18:04 The patient presents with abdominal pain in the left lower quadrant. rn 18:04 Onset: The symptoms/episode began/occurred 3 day(s) ago. The symptoms do not radiate. rn Associated signs and symptoms: Pertinent positives: diarrhea, dysuria, fever, Pertinent negatives: shortness of breath, vaginal discharge, vomiting. The symptoms are described as achy, crampy. Modifying factors: The symptoms are alleviated by nothing, the symptoms are aggravated by touching the area. Severity of pain: At its worst the pain was mild in the emergency department the pain is unchanged. The patient has experienced a previous episode. The patient has not recently seen a physician. Patient reports left lower quadrant abdominal pain for 3 days now, associated with subjective fevers and diarrhea. Diarrhea is nonbloody. Patient feels this is different abdominal pain than a Crohn's flare. Also reports dysuria for the last 2 days.. Historical: - Allergies: 16:26 tramadol; ll1 - PMHx: 16:26 Crohn's; Asthma; kidney stones; ll1 - PSHx: 16:26 Cholecystectomy; LEEP; ll1 - Immunization history:: Client reports having NOT received the Covid vaccine. Flu vaccine status is unknown. - Social history:: Smoking status: Reported history of juuling and/or vaping. Patient denies any tobacco usage or history of. - Family history:: not pertinent. - Hospitalizations: : No recent hospitalization is reported. 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 Exam: 18:04 Constitutional: This is a well developed, well nourished patient who is awake, alert, rn and in no acute distress. Head/Face: Normocephalic, atraumatic. Eyes: Periorbital areas with no swelling, redness, or edema. Cardiovascular: Regular rate and rhythm. No pulse deficits. Respiratory: No increased work of breathing, no retractions or nasal flaring. Abdomen/GI: Soft, mild tenderness left lower quadrant. No guarding or rebound Skin: Warm, dry MS/ Extremity: Pulses equal, no cyanosis. Neuro: Awake and alert, GCS 15 Vital Signs: 16:26 BP 125 / 87; Pulse 80; Resp 16; Temp 98.2; Pulse Ox 100% ; Height 5 ft. 0 in. (152.40 ll1 cm); Pain 4/10; 17:36 BP 122 / 86; Pulse 79; Resp 18; Pulse Ox 100% ; Pain 6/10; ld1 18:59 BP 126 / 82; Pulse 96; Resp 14; Pulse Ox 100% ; vg1 MDM: 17:33 Patient medically screened. rn 19:02 Differential diagnosis: diverticulitis, non-specific abd pain, Ureterolithiasis, rn urinary tract infection. Data reviewed: vital signs, nurses notes, lab test result(s), radiologic studies, CT scan, and as a result, I will discharge patient. Counseling: I had a detailed discussion with the patient and/or guardian regarding: the historical points, exam findings, and any diagnostic results supporting the discharge/admit diagnosis, lab results, radiology results, the need for outpatient follow up, to return to the emergency department if symptoms worsen or persist or if there are any questions or concerns that arise at home. Response to treatment: the patient's symptoms have mildly improved after treatment, and as a result, I will discharge patient. Special discussion: I discussed with the patient/guardian in detail that at this point there is no indication for admission to the hospital. It is understood, however, that if the symptoms persist or worsen the patient needs to return immediately for re-evaluation. 08/11 17:37 Order name: Urine Culture rn 08/11 17:37 Order name: Urine Microscopic Only; Complete Time: 18:27 rn 08/11 17:40 Order name: Urine Dipstick-Ancillary; Complete Time: 17:45 EDMS 08/11 17:46 Order name: Basic Metabolic Panel; Complete Time: 18:27 rn 08/11 17:46 Order name: CBC with Diff; Complete Time: 18:19 rn 08/11 17:46 Order name: Hepatic Function; Complete Time: 18:27 rn 08/11 17:37 Order name: Urine Dipstick-Ancillary (obtain specimen); Complete Time: 17:39 rn 08/11 17:37 Order name: Urine Test (obtain specimen); Complete Time: 17:39 rn 08/11 17:46 Order name: Lipase; Complete Time: 18:27 rn 08/11 17:46 Order name: IV Saline Lock; Complete Time: 17:58 rn 08/11 17:46 Order name: Labs collected and sent; Complete Time: 17:58 rn 08/11 17:46 Order name: CT Abd/Pelvis - IV Contrast Only; Complete Time: 19:01 rn Administered Medications: No medications were administered Disposition Summary: 08/11/21 19:03 Discharge Ordered Location: Home rn Problem: new rn Symptoms: have improved rn Condition: Stable rn Diagnosis - Diarrhea, unspecified rn - Dysuria rn Followup: rn - With: Private Physician - When: As needed - Reason: Recheck today's complaints, Re-evaluation by your physician Discharge Instructions: - Discharge Summary Sheet rn - Diarrhea, Adult rn - Dysuria rn Forms: - Medication Reconciliation Form rn - Thank You Letter rn - 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
[2021-08-11 20:41] VITALS: TEMP 98.2; O2SAT 100
[2021-08-11 20:43] VITALS: BP 126/82
== END 2021-08-11 19:20 | disposition home or self-care (01) ==
LOC: ER 15:53
DX: R19.7 Diarrhea, unspecified (principal); Z87.442 Personal history of urinary calculi; Z88.5 Allergy status to narcotic agent
CPT/HCPCS: 87088; 85025; 87086; 80048; 36415; 80076; 83690; 74177; Q9967; 81003; 81015

== ENCOUNTER 2022-09-10 18:07 | Emergency (ER) | payer OTHER ==
--- OUTSIDE RECORDS SUMMARY | 2022-09-10 18:11 | XMS REPORT | Continuity of Care Document ---
:1990 Author Organization [facility] t Address [address] [place] [address] Care Team Providers Name Role Phone DON JOE Primary Care Physician Unavailable JORGE LUNSFORD Attending Clinician Unavailable FELTON SPENCER Attending Clinician Unavailable Filomena Diaz Attending Clinician Jorge Lunsford MD Attending Clinician Doctor Unassigned, [place] Attending Clinician Unavailable FABIAN IGLESIAS Attending Clinician Unavailable Fabian Iglesias MD Attending Clinician Pcp, Patient Does Not Have A Attending Clinician [phone], [facility] Attending Clinician Unavailable Deanna White MD Attending Clinician DEANNA WHITE Attending Clinician Unavailable Roopa Holt Attending Clinician Roopa CALLAHAN Attending Clinician Unavailable DON JOE M.D., DON Harris M.D. Attending Clin ician Unavailable JORGE LUNSFORD Admitting Clinician Unavailable DON JOE M.D., DON Harris Admitting Clinician Unavailable Payers Payer Name Policy Type Policy Number Effective Date Expiration Date [place] [employer] [id number] 2019 HEALTH 00:00:00 Problems Condition Condition Condition Status Onset Resolution Last Treating Co mments Source Name Details Category Date Date Treatment Clinician Date Weight Weight Disease Active Overview: Univer s loss loss 6-03 Formattin ity of 00:00: g of this [place] 00 note Medical might be Branch different from the original. Added automatic ally from request for surgery [id number] Inflammato Inflammato Disease Active 2020-0 Overview : Univers ry bowel ry bowel 02-26 Formattin ity of disease disease 00:00: g of this [place] 00 note Medical might be Branch different from the original. Added automatic ally from request for surgery [id number] B12 B12 Disease Active 2020-0 Univers deficiency deficiency 3-25 it y of 00:00: [address] Folate Folate Disease Active 2020-0 Univers deficiency deficiency 3-25 it y of 00:00: [place] 00 Medical [place] Elevated Elevated Disease Active 2019-0 Unive rs serum serum 3-25 ity of protein protein 00:00: [place] level level 00 Medical Branch Chronic Chronic Disease Active 2020-0 Univers fatigue fatigue 3-22 ity of 00:00: [place] [address] Medical [place] No known No known Disease Unive rs active active ity of problems problems [facility] Chronic Chronic Disease Active Univers bronchitis bronchitis it y of [facility] Crohn Crohn Disease Active Univers disease disease ity of [facility] Asthma Asthma Disease Active Univers ity of [facility] Allergic Allergic Disease Active Unive rs rhinitis rhinitis ity of [facility] Allergies, Adverse Reactions, Alerts Allergy Allergy Status Severity Reaction(s) Onset Inactive Treating Comm ents Source Name Type Date Date Clinician TRAMADOL DRUG Active High N/V 2019-0 Univers INGREDI 3-20 ity of 00:00: [address] Tramadol Propensi Active Nausea 2019-0 Univer s ty to and/or 3-20 ity of adverse Vomiting 00:00: [place] reaction 00 [facility] s Branch NO KNOWN Drug Active Univers ALLERGIE Class ity of S [facility] Social History Social Habit Start Date Stop Date Quantity Comments Source Exposure to Not sure [place] of SARS-CoV-2 [facility] (event) Branch Tobacco use and 2021-02-24 2021-02-24 Never used Universit y of exposure 00:00:00 00:00:00 [facility] Alcohol intake 2021-02-24 2021-02-24 Ex-drinker University of 00:00:00 00:00:00 (finding) [facility] Tobacco Comment 2019-12-14 2019-12-14 vaping Universit y of 00:00:00 00:00:00 [facility] Sex Assigned At [birth year] Universit y of 00:00:00 00:00:00 [facility] Smoking Status Start Date Stop Date Source Unknown if ever smoked Universit y of [facility] Current every day smoker 2021-02-24 00:00:00 Uni versity [facility] Medications Ordered Filled Start Stop Current Ordering Indication Dosage Frequency Signature Comments Components Source Medication Medication Date Date Medication? Clinician (SIG) Name Name LORazepam 2020- No .5mg 0.5 mg, [facility] ers (ATIVAN) 02-24 Oral, ity of tablet 0.5 08:30: 07:28 ONCE, 1 [place] mg 00 :00 dose, [facility] 02/24/21 at Branch 0330, EDUARDO peg-electro 2020-0 Yes [id number] 4000mL Take 4,000 Univers lyte soln 6-02 mL by ity of 236-.74-6 00:00: mouth [place] .74 -5.86 00 SEE-INSTRU Medi dilia gram CTIONS. Branch solution Take as directed peg-electro 2020-0 Yes [id number] 4000mL Take 4,000 Univers lyte soln 6-02 mL by ity of -.74-6 00:00: mouth [place] .74 -5.86 00 SEE-INSTRU Medi dilia gram CTIONS. Branch solution Take as directed peg-electro 2020-0 Yes [id number] 4000mL Take 4,000 Univers lyte soln 6-02 mL by ity of .74-6 00:00: mouth [place] .74 -5.86 00 SEE-INSTRU Medi dilia gram CTIONS. Branch solution Take as directed ondansetron 2020-0 2020- No Take by Un kehinde HCl (ZOFRAN 4-10 04-10 mouth. ity o f ORAL) 21:49: 00:00 [place] 37 :00 [facility] Branch ondansetron 2020-0 Yes [id number] 4mg Take 1 Univers 4 mg tablet 4-10 tablet by ity of 00:00: mouth [place] 00 every 8 Medical (eight) Branch hours as needed for Nausea and Vomiting (N/V). ondansetron 2020-0 Yes [id number] 4mg Take 1 Univers 4 mg tablet 4-10 tablet by ity of 00:00: mouth [place] 00 every 8 Medical (eight) Branch hours as needed for Nausea and Vomiting (N/V). ondansetron 2020-0 Yes [id number] 4mg Take 1 Univers 4 mg tablet 4-10 tablet by ity of 00:00: mouth [place] 00 every 8 Medical (eight) Branch hours as needed for Nausea and Vomiting (N/V). ondansetron 2020-0 Yes [id number] 4mg Take 1 Univers 4 mg tablet 4-10 tablet by ity of 00:00: mouth [place] 00 every 8 Medical (eight) Branch hours as needed for Nausea and Vomiting (N/V). ondansetron 2020-0 Yes [id number] 4mg Take 1 Univers 4 mg tablet 4-10 tablet by ity of 00:00: mouth [place] 00 every 8 Medical (eight) Branch hours as needed for Nausea and Vomiting (N/V). vitamin 2020-0 Yes [id number] 1000ug Take 1 U nivers B-12 1,000 3-25 tablet by ity of mcg tablet 00:00: mouth [place] 00 daily. Medical Branch foLIC acid 2020-0 Yes [id number] 1mg Take 1 Univers 1 mg tablet 3-25 tablet by ity of 00:00: mouth [place] 00 daily. Medical Branch vitamin 2020-0 Yes [id number] 1000ug Take 1 U nivers B-12 1,000 3-25 tablet by ity of mcg tablet 00:00: mouth [place] 00 daily. Medical Branch foLIC acid 2020-0 Yes [id number] 1mg Take 1 Univers 1 mg tablet 3-25 tablet by ity of 00:00: mouth [place] 00 daily. Medical Branch vitamin 2020-0 Yes [id number] 1000ug Take 1 U nivers B-12 1,000 3-25 tablet by ity of mcg tablet 00:00: mouth [place] 00 daily. Medical Branch foLIC acid 2020-0 Yes [id number] 1mg Take 1 Univers 1 mg tablet 3-25 tablet by ity of 00:00: mouth [place] 00 daily. Medical Branch vitamin 2020-0 Yes [id number] 1000ug Take 1 U nivers B-12 1,000 3-25 tablet by ity of mcg tablet 00:00: mouth [place] 00 daily. [facility] Branch foLIC acid 2020-0 Yes [id number] 1mg Take 1 Univers 1 mg tablet 3-25 tablet by ity of 00:00: mouth [place] 00 daily. [facility] Branch vitamin 2020-0 Yes [id number] 1000ug Take 1 U nivers B-12 1,000 3-25 tablet by ity of mcg tablet 00:00: mouth [place] 00 daily. [facility] Branch foLIC acid 2020-0 Yes [id number] 1mg Take 1 Univers 1 mg tablet 3-25 tablet by ity of 00:00: mouth [place] 00 daily. Medical Branch vitamin 2020-0 Yes [id number] 1000ug Take 1 U nivers B-12 1,000 3-25 tablet by ity of mcg tablet 00:00: mouth [place] 00 daily. Medical Branch foLIC acid 2020-0 Yes [id number] 1mg Take 1 Univers 1 mg tablet 3-25 tablet by ity of 00:00: mouth [place] 00 daily. Medical Branch vitamin 2020-0 Yes [id number] 1000ug Take 1 U nivers B-12 1,000 3-25 tablet by ity of mcg tablet 00:00: mouth [place] 00 daily. Medical Branch foLIC acid 2020-0 Yes [id number] 1mg Take 1 Univers 1 mg tablet 3-25 tablet by ity of 00:00: mouth [place] 00 daily. Medical Branch sulfamethox 2020-0 2020- No Take by Un kehinde azole/trime 3-20 03-20 mouth. ity o f thoprim 20:21: 00:00 [place] (SMZ-TMP DS 36 :00 Medical ORAL) Branch sulfamethox 2020-0 2020- No Take by Un kehinde azole/trime 3-20 03-20 mouth. ity o f thoprim 20:21: 00:00 [place] (SMZ-TMP DS 36 :00 Medical ORAL) Branch ondansetron 2020-0 Yes Take by Uni vers HCl (ZOFRAN 3-20 mouth. ity of ORAL) 19:46: [place] [address] Medical Branch ondansetron 2020-0 Yes Take by Uni vers HCl (ZOFRAN 3-20 mouth. ity of ORAL) 19:46: [place] [address] Medical Branch ondansetron 2020-0 Yes Take by Uni vers HCl (ZOFRAN 3-20 mouth. ity of ORAL) 19:46: [place] [address] Medical Branch ondansetron 2020-0 Yes Take by Uni vers HCl (ZOFRAN 3-20 mouth. ity of ORAL) 19:46: [place] [address] Medical Branch ondansetron 2020-0 Yes Take by Uni vers HCl (ZOFRAN 3-20 mouth. ity of ORAL) 19:46: [place] [address] Medical Branch albuterol 2020-0 Yes [id number] 2{puff} Inhale 2 Univers 90 3-20 Puffs ity of mcg/actuati 00:00: every 6 [place] on inhaler 00 (six) Medical hours as Branch needed for Wheezing or Shortness of Breath. albuterol 2020-0 Yes [id number] 2{puff} Inhale 2 Univers 90 3-20 Puffs ity of mcg/actuati 00:00: every 6 [place] on inhaler 00 (six) Medical hours as Branch needed for Wheezing or Shortness of Breath. albuterol 2020-0 Yes [id number] 2{puff} Inhale 2 Univers 90 3-20 Puffs ity of mcg/actuati 00:00: every 6 [place] on inhaler 00 (six) Medical hours as Branch needed for Wheezing or Shortness of Breath. albuterol 2019-0 Yes [id number] 2{puff} Inhale 2 Univers 90 3-20 Puffs ity of mcg/actuati 00:00: every 6 [place] on inhaler 00 (six) Medical hours as Branch needed for Wheezing or Shortness of Breath. albuterol 2020-0 Yes [id number] 2{puff} Inhale 2 Univers 90 3-20 Puffs ity of mcg/actuati 00:00: every 6 [place] on inhaler 00 (six) Medical hours as Branch needed for Wheezing or Shortness of Breath. albuterol 2020-0 Yes [id number] 2{puff} Inhale 2 Univers 90 3-20 Puffs ity of mcg/actuati 00:00: every 6 [place] on inhaler 00 (six) Medical hours as Branch needed for Wheezing or Shortness of Breath. albuterol 2020-0 Yes [id number] 2{puff} Inhale 2 Univers 90 3-20 Puffs ity of mcg/actuati 00:00: every 6 [place] on inhaler 00 (six) Medical hours as Branch needed for Wheezing or Shortness of Breath. albuterol 2020-0 Yes [id number] 2{puff} Inhale 2 Univers 90 3-20 Puffs ity of mcg/actuati 00:00: every 6 [place] on inhaler 00 (six) Medical hours as Branch needed for Wheezing or Shortness of Breath. albuterol 2019-0 Yes [id number] 2{puff} Inhale 2 Univers 90 3-20 Puffs ity of mcg/actuati 00:00: every 6 [place] on inhaler 00 (six) Medical hours as Branch needed for Wheezing or Shortness of Breath. albuterol 2020-0 Yes [id number] 2{puff} Inhale 2 Univers 90 3-20 Puffs ity of mcg/actuati 00:00: every 6 [place] on inhaler 00 (six) Medical hours as Branch needed for Wheezing or Shortness of Breath. sulfamethox 2020-0 2020- No [id number] 1{tbl} Take 1 Univers azole-trime 3-20 - [id number] tablet by ity of thoprim 00:00: 04:59 mouth 2 [place] (BACTRIM 00 :00 (two) Medical DS) 800-160 times Branch mg per daily for tablet 4 days. sulfamethox 2020-0 2020- No [id number] 1{tbl} Take 1 Univers azole-trime 3-20 - [id number] tablet by ity of thoprim 00:00: 04:59 mouth 2 [place] (BACTRIM 00 :00 (two) Medical DS) 800-160 times Branch mg per daily for tablet 4 days. sulfamethox 2020-0 2020- No [id number] 1{tbl} Take 1 Univers azole-trime 3-20 - [id number] tablet by ity of thoprim 00:00: 04:59 mouth 2 [place] (BACTRIM 00 :00 (two) Medical DS) 800-160 times Branch mg per daily for tablet 4 days. fluconazole 2020-0 2020- No [id number] 150mg Take 1 Univers 150 mg 3-20 - tablet by ity of tablet 00:00: 04:59 mouth [place] 00 :00 now for 1 Medical dose. May Branch repeat in 3-4 days. fluconazole 2020-0 2020- No [id number] 150mg Take 1 Univers 150 mg 3-20 -21 tablet by ity of tablet 00:00: 04:59 mouth [place] 00 :00 now for 1 Medical dose. May Branch repeat in 3-4 days. fluconazole 2020-0 2020- No [id number] 150mg Take 1 Univers 150 mg 3-20 -21 tablet by ity of tablet 00:00: 04:59 mouth [place] 00 :00 now for 1 Medical dose. May Branch repeat in 3-4 days. ondansetron 2019- 2020- No 1{tbl} Take 1 U nivers 4 mg tablet 3-15 04-10 tablet by it y of 00:00: 00:00 mouth [place] 00 :00 every 8 Medical (eight) Branch hours as needed for Nausea. traMADol 2019-2019- No 50mg 50 mg, Univer s (ULTRAM) 12-0512 Oral, ity of tablet 50 07:00: 05:54 ONCE, 1 [place] mg 00 :00 dose, [facility] 12/06/19 at Branch 0200, Routine cephALEXin 2019-2019- No 500mg 500 mg, Un kehinde (KEFLEX) 12-05 Oral, ity of capsule 500 06:45: 05:52 [place]CE, 1 [place] mg 00 :00 dose, [facility] 12/06/19 at Branch 0145, EDUARDO
Re ason for Anti-Infec tive: Documented Infection< br>Documen alexia Infection Site: Skin / Soft Tissue
Duration of Therapy: Other (see Comments) mupirocin 2 2020-0 Yes [id number] Apply to Univers % ointment 3-10 area(s) 3 ity of 00:00: (three) [place] 00 times Medical daily. [place] mupirocin 2 2020-0 Yes [id number] Apply to Univers % ointment 3-10 area(s) 3 ity of 00:00: (three) [place] 00 times Medical daily. [place] mupirocin 2 2020-0 Yes [id number] Apply to Univers % ointment 3-10 area(s) 3 ity of 00:00: (three) [place] 00 times Medical daily. [place] mupirocin 2 2020-0 Yes [id number] Apply to Univers % ointment 3-10 area(s) 3 ity of 00:00: (three) [place] 00 times Medical daily. Branch mupirocin 2 2020-0 Yes [id number] Apply to Univers % ointment 3-10 area(s) 3 ity of 00:00: (three) [place] 00 times Medical daily. [place] mupirocin 2 2020-0 Yes [id number] Apply to Univers % ointment 3-10 area(s) 3 ity of 00:00: (three) [place] 00 times Medical daily. [place] mupirocin 2 2020-0 Yes [id number] Apply to Univers % ointment 3-10 area(s) 3 ity of 00:00: (three) [place] 00 times Medical daily. Branch mupirocin 2 2020-0 Yes [id number] Apply to Univers % ointment 3-10 area(s) 3 ity of 00:00: (three) [place] 00 times Medical daily. Branch mupirocin 2 2020-0 Yes [id number] Apply to Univers % ointment 3-10 area(s) 3 ity of 00:00: (three) [place] 00 times Medical daily. Branch mupirocin 2 2020-0 Yes [id number] Apply to Univers % ointment 3-10 area(s) 3 ity of 00:00: (three) [place] 00 times Medical daily. Branch mupirocin 2 2020-0 Yes [id number] Apply to Univers % ointment 3-10 area(s) 3 ity of 00:00: (three) [place] 00 times Medical daily. Branch mupirocin 2 2020-0 Yes [id number] Apply to Univers % ointment 3-10 area(s) 3 ity of 00:00: (three) [place] 00 times Medical daily. Branch mupirocin 2 2020-0 Yes [id number] Apply to Univers % ointment 3-10 area(s) 3 ity of 00:00: (three) [place] 00 times Medical daily. Branch mupirocin 2 2020-0 Yes [id number] Apply to Univers % ointment 3-10 area(s) 3 ity of 00:00: (three) [place] 00 times Medical daily. Branch cephALEXin 2020-0 2020- No [id number] 500mg Take 1 Univers (KEFLEX) 3-10 03-21 capsule by ity of 500 mg 00:00: 04:59 mouth 3 [place] capsule 00 :00 (three) Medical times [place] daily for 10 days. cephALEXin 2020-0 2020- No [id number] 500mg Take 1 Univers (KEFLEX) 3-10 03-21 capsule by ity of 500 mg 00:00: 04:59 mouth 3 [place] capsule 00 :00 (three) Medical times [place] daily for 10 days. cephALEXin 2020-0 2020- No [id number] 500mg Take 1 Univers (KEFLEX) 3-10 03-21 capsule by ity of 500 mg 00:00: 04:59 mouth 3 [place] capsule 00 :00 (three) Medical times Branch daily for 10 days. cephALEXin 2019-2019- No [id number] 500mg Take 1 Univers (KEFLEX) 12-03 capsule by ity of 500 mg 00:00: 04:59 mouth 3 [place] capsule 00 :00 (three) Medical times Branch daily for 10 days. cephALEXin 2019-2019- No [id number] 500mg Take 1 Univers (KEFLEX) 12-03 capsule by ity of 500 mg 00:00: 00:00 mouth 3 [place] capsule 00 :00 (three) Medical times Branch daily for 10 days. cephALEXin 2019-2019- No [id number] 500mg Take 1 Univers (KEFLEX) 12-03 capsule by ity of 500 mg 00:00: 00:00 mouth 3 [place] capsule 00 :00 (three) Medical times Branch daily for 10 days. Immunizations Ordered Filled Immunization Date Status Comments [facility] e Immunization Name Name Tdap 2019-12-10 Completed University of 00:00:00 [place] Medical [place] Tdap 2019-12-10 Completed University of 00:00:00 [place] [facility] Branch Tdap 2019-12-10 Completed University of 00:00:00 [place] [facility] Tdap 2019-12-10 Completed University of 00:00:00 [place] [facility] Tdap 2019-12-10 Completed University of 00:00:00 [place] [facility] [place] Tdap 2019-12-10 Completed University of 00:00:00 [place] [facility] [place] Tdap 2019-12-10 Completed University of 00:00:00 [place] [facility] TDAP 2019-12-10 Completed University of 00:00:00 [place] [facility] TDAP 2019-12-10 Completed University of 00:00:00 [place] [facility] Tdap 2019-12-10 Completed University of 00:00:00 [facility] Vital Signs Vital Name Observation Time Observation Value Comments Source Systolic blood 2021-02-24 10:30:00 112 mm[Hg] Univer sity of pressure [facility] Diastolic blood 2021-02-24 10:30:00 87 mm[Hg] Unive rsity of pressure [facility] Heart rate 2021-02-24 10:30:00 94 /min Universi ty of [place] [facility] Respiratory rate 2021-02-24 10:30:00 16 /min Univ ersity of [place] [facility] Oxygen saturation in 2021-02-24 10:30:00 99 /min University of Arterial blood by [place] dilia Pulse oximetry Branch Body weight 2021-02-24 07:20:00 43.092 kg Universi ty of [place] [facility] BMI 2021-02-24 07:20:00 18.55 kg/m2 Universi ty of [place] [facility] Body temperature 2021-02-24 07:11:00 37.56 [place] Univ ersity of [place] [facility] Systolic blood 2019-12-14 19:43:00 125 mm[Hg] Univer sity of pressure [place] [facility] Diastolic blood 2019-12-14 19:43:00 82 mm[Hg] Unive rsity of pressure [place] [facility] Heart rate 2019-12-14 19:43:00 63 /min Universi ty of [place] [facility] [place] Body height 2019-12-14 19:43:00 152.4 cm Universi ty of [place] [facility] [place] Body weight 2019-12-14 19:43:00 52.617 kg Universi ty of [place] [facility] BMI 2019-12-14 19:43:00 22.65 kg/m2 Universi ty of [place] [facility] Oxygen saturation in 2019-12-14 19:43:00 100 /min University of Arterial blood by [place] dilia Pulse oximetry Branch Systolic blood 2019-12-06 03:57:00 114 mm[Hg] Univer sity of pressure [place] [facility] Diastolic blood 2019-12-06 03:57:00 70 mm[Hg] Unive rsity of pressure [place] [facility] Heart rate 2019-12-06 03:57:00 95 /min Universi ty of [place] [facility] Body temperature 2019-12-06 03:57:00 37.5 [place] Univ ersity of [place] [facility] Respiratory rate 2019-12-06 03:57:00 20 /min Univ ersity of [place] [facility] Body weight 2019-12-06 03:57:00 53.071 kg Universi ty of [place] [facility] BMI 2019-12-06 03:57:00 22.85 kg/m2 Universi ty of [place] [facility] Oxygen saturation in 2019-12-06 03:57:00 100 /min University of Arterial blood by [place] [facility] Pulse oximetry Branch Systolic blood 2019-12-05 00:50:00 128 mm[Hg] Univer sity of pressure [facility] Diastolic blood 2019-12-05 00:50:00 75 mm[Hg] Unive rsity of pressure [facility] Heart rate 2019-12-05 00:50:00 97 /min [facility] Body temperature 2019-12-05 00:50:[address] [facility] Respiratory rate 2019-12-05 00:50:00 16 /min [facility] Body height 2019-12-05 00:50:00 152.4 cm [facility] Body weight 2019-12-05 00:50:00 54.432 kg [facility] BMI 2019-12-05 00:50:00 23.44 kg/m2 [facility] Oxygen saturation in 2019-12-05 00:50:00 100 /min [facility] blood by [facility] Pulse oximetry Branch Procedures Procedure Date / Time Performing Clinician Source Performed DISCLOSURE AND CONSENT, 2020-02-26 05:01:00 [facility]ICAL [place] Medical [facility] PROCEDURES ASSIGNMENT OF BENEFITS 2019-12-14 19:26:11 Doctor Unakandyigned, [facility] [place] [facility] EMERGENCY SERVICES 2019-12-06 05:01:00 Doctor Christian, [facility] AGREEMENTS AND [place] [facility] AUTHORIZATIONS CONSENT/REFUSAL FOR 2019-12-06 03:49:[address] [facility] DIAGNOSIS AND TREATMENT [place] [facility] NOTICE OF PRIVACY 2019-12-05 00:46:32 Doctor Christian, [facility] PRACTICES [place] [facility] CONSENT/REFUSAL FOR 2019-12-05 00:46:11 Doctor Christian [facility] DIAGNOSIS AND TREATMENT [place] [facility] Encounters Start End Encounter Admission Attending Care Care Encounter Source Date/Time Date/Time Type Type Clinicians Facility Department ID 2021-07-26 Emergency [facility] [id number] Univers [facility]:16[facility]-07-24 Outpatient Kristy LUNSFORD [facility] RAMOS [id number] Univers 00:12:56 JORGE [facility] 2021-05-13 2021-05-13 [facility] [id number] Univers 15:30:00 15:30:00 FELTON gonzalez [facility] 2021-02-24 2021-02-24 [facility] [id number] Univers 02:21:00 05:41:00 Filomena Bustoston [id number] i [place] [id number] [place] [phone] [place] [id number] [place] 2020-05-28 2020-05-28 Out[facility] [id number] Univers 15:00:00 15:00:00 FELTON gonzalez [facility] 2020-03-07 2020-03-07 Telephone [facility] [id number] Univers 00:00:00 00:00:00 Jorge Mely [id number] i [id number] [facility] [phone] Ak dical nal 377 [facility] 2020-02-26 2020-02-26 Outpatient [facility] [id number] Univers 14:30:00 14:30:00 JORGE carlos [facility] 2020-02-26 2020-02-26 Orders Doctor CANDELARIO [id number] Univers 00:00:00 00:00:00 Only Unassigned, JUAN MANUEL [id number] ity of [place] [facility] [id number] [place] as [phone] [facility] 009 [place] 2020-01-29 2020-01-29 Outpatient R [facility] [id number] Univers 10:00:00 10:00:00 WONDIFUL ity o f [facility] 2020-01-29 2020-01-29 Telemedici [facility] [id number] Univers 07:31:16 07:46:16 ne Visit Wondiful Jonathan Boone [id number] [place] [id number] [place] Profess[place] [phone] Ak dical nal 044 [facility] 2020-01-04 2020-01-04 Telephone [facility] [id number] Univers 00:00:00 00:00:00 Patient Health [id number] it y of Does Not [id number] [place] Professio [phone] Ak dical [facility] 044 [facility] 2019-12-19 2019-12-19 Case [facility] [id number] Univers 00:00:00 00:00:00 Management Wondiful A Health [id number] ity of [place] [id number] [place] as Professio [phone] [facility] nal [address] [place] [id number] 2019-12-19 2019-12-19 [facility]phone [facility] 1..840.114 [id number] Univers 00:00:00 00:00:00 W[facility]iful [facility] [id number] ity of [place] [id number] Scottie as Professio [phone] [facility] [address] [place] [address] 2019-12-14 2019-12-14 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 10 ity of [place] [id number] [place] Profess[place] [phone] [facility] [address] [facility] 2019-12-14 2019-12-14 Office [facility] 1.2.840.114 [id number] Univers 14:27:17 15:27:30 Visit Wonpernellful [facility] [id number] ity of [place] [id number] Scottie as Professio [phone] [address] 2019-12-14 2019-12-14 Outpatient R STAN [facility] [id number] Univers 14:30:00 14:30:00 WONDIFUL ity o f [facility] 2019-12-14 2019-12-14 Orders Doctor KODAK 1..840.114 [id number] Univers 00:00:00 00:00:00 Only Unassigned, JUAN MANUEL [id number] ity of [place] [facility] [id number] Scottie as [phone] [address] 2019-12-06 2019-12-06 Emergency [facility] [id number] [id number] Univers 00:15:42 01:15:00 Deanna Boone [id number] i ty of [place] [id number] [phone] [address] 2019-12-06 2019-12-06 Emergency [facility] E[facility] [id number] Univers 00:15:42 00:15:42 [facility] 2019-12-06 2019-12-06 Orders Doctor KODAK 1.2.840.114 [id number] Univers 00:00:00 00:00:00 Only Unassigned, JUAN MANUEL [id number] ity of [place] [facility] [id number] Scottie as [phone] [address] 2019-12-04 2019-12-04 Emergency Roopa Callahan [facility] 1.2.840.114 [id number] Univers 19:53:28 20:43:00 Alena Boone [id number] i ty of [place] [id number] [facility] [phone] [address] 2019-12-04 2019-12-04 Emergency X Roopa CALLAHAN [facility] ERT [id number] Univers 19:53:28 19:53:28 ity [facility] Results Test Description Test Time Test Comments Results Result Comments Source BHCG, Serum, Qualitative 2017-09-05 18:00:00 Test Item Value Reference Range Interpretation Comme nts Preg Qual [Se] (test code = BSHCG) Negative Negative N
[2022-09-10] MEDS ORDERED: LIDOCAINE VISCOUS 2% SOLN 15 ML UDC ONE (18:29)
--- NOTE | 2022-09-10 18:33 | EDPHYS ---
Physician Documentation [facility] Name: Opal Tapia Age: 31 yrs Sex: Female : 1990 Arrival Date: 09/10/2022 Time: 18:10 Bed 11 Private MD: ED Physician Shiva Kelley HPI: 09/10 18:22 This 31 yrs old Female presents to ER via Ambulatory with complaints of Mouth Problem. cp 18:22 The patient presents with pain, redness, swelling. The problem is located in the upper cp jaw. Onset: The symptoms/episode began/occurred 1 week(s) ago. Duration: The symptoms are continuous, and are steadily getting worse. Associated signs and symptoms: Pertinent positives: fever, Pertinent negatives: chills, inability to eat, vomiting. Severity of symptoms: in the emergency department the symptoms are unchanged, despite home interventions. 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 - Social history:: Smoking status: Reported history of juuling and/or vaping. ROS: 18:25 ENT: Positive for dental pain, Teeth pain Negative for drainage from ear(s), ear pain, cp difficulty swallowing, difficulty handling secretions. 18:25 Eyes: Negative for injury, pain, redness, and discharge. cp 18:25 Constitutional: Negative for body aches, chills, fever, poor PO intake. 18:25 Respiratory: Negative for cough, shortness of breath, wheezing. 18:25 Abdomen/GI: Negative for abdominal pain, nausea, vomiting, diarrhea, constipation. 18:25 Neuro: Negative for altered mental status, dizziness, headache, syncope, weakness. 18:25 All other systems are negative. Exam: 18:28 Head/Face: Normocephalic, atraumatic. cp 18:28 Constitutional: The patient appears in no acute distress, alert, awake, non-toxic, well developed, well nourished, uncomfortable. 18:28 Eyes: Periorbital structures: appear normal, Conjunctiva: normal, no exudate, no injection, Sclera: no appreciated abnormality, Lids and lashes: appear normal, bilaterally. 18:28 ENT: External ear(s): are unremarkable, Ear canal(s): are normal, clear, TM's: bulging, is not appreciated, bilaterally, dullness, bilaterally, erythema, is not appreciated, bilaterally, Nose: is normal, Mouth: Lips: moist, Oral mucosa: moist, Gums: reddened, swollen, on the upper and lower gumline, abscess, is not appreciated, Posterior pharynx: Airway: no evidence of obstruction, patent, Tonsils: with erythema, no enlargement, no exudate, erythema, that is mild, exudate, is not appreciated, Dental exam: abscess, is not appreciated, dental caries, that is severe, diffusely, pain, that is moderate, specifically in the upper right cuspid (#6) and upper left cuspid (#11), Voice: is normal. 18:28 Neck: ROM/movement: is normal, is supple, without pain, no range of motions limitations, no meningismus. 18:28 Chest/axilla: Inspection: normal. 18:28 Cardiovascular: Rate: normal. Vital Signs: 18:18 BP 131 / 79; Pulse 80; Resp 20; Temp 98.1; Pulse Ox 99% ; Weight 47.63 kg; Height 5 ft. kb3 0 in. (152.40 cm); Pain 10/10; 18:18 Body Mass Index 20.51 (47.63 kg, 152.40 cm) kb3 MDM: 18:24 Patient medically screened. cp 18:31 Data reviewed: vital signs, nurses notes. cp 18:31 Differential diagnosis: dental caries, gingivitis, dental abscess, pericoronitis, cp gingivostomatitis. Counseling: I had a detailed discussion with the patient and/or guardian regarding: the historical points, exam findings, and any diagnostic results supporting the discharge/admit diagnosis, the need for outpatient follow up, for definitive care, a dentist, to return to the emergency department if symptoms worsen or persist or if there are any questions or concerns that arise at home. Response to treatment: the patient's symptoms have mildly improved after treatment, and as a result, I will discharge patient. Administered Medications: 18:39 Drug: Viscous Lidocaine Liquid (4 %) 5 ml Route: Mucous Membrane; jl7 18:41 Follow up: Response: Medication administered at discharge. jl7 Disposition Summary: 09/10/22 18:32 Discharge Ordered Location: Home cp Problem: new cp Symptoms: have improved cp Condition: Stable cp Diagnosis - Dental caries, unspecified cp Followup: cp - With: Private Physician - When: 2 - 3 days - Reason: Recheck today's complaints Discharge Instructions: - Discharge Summary Sheet cp - Dental Caries, Adult cp - Dental Pain cp Forms: - Medication Reconciliation Form cp - Thank You Letter cp - Antibiotic Education cp - Prescription Opioid Use cp Prescriptions: - Peridex 0.12 % Mucous Membrane mouthwash - place 15 milliliter by MUCOUS MEMBRANE route 2 times per day after brushing cp teeth, swish in mouth for 30 seconds then spit out; 1 bottle; Refills: 0, Product Selection Permitted - Amoxicillin 875 mg Oral Tablet - take 1 tablet by ORAL route every 12 hours for 10 days; 20 tablet; Refills: 0, cp Product Selection Permitted Signatures: Mitchell Robbins PA PA cp Leal, Jahala RN RN jl7 Latanya Byers RN RN kb3
--- NOTE | 2022-09-10 18:33 | ER ---
Nurse's Notes [facility] Name: Opal Tapia Age: 31 yrs Sex: Female : 1990 Arrival Date: 09/10/2022 Time: 18:10 Bed 11 Private MD: Diagnosis: Dental caries, unspecified Presentation: 09/10 18:18 Chief complaint: Patient states: Tooth and gum pain across front upper jaw x1 week. kb3 Reports dentist appointment 09/28/2022. Multiple carious teeth noted throughout mouth. Coronavirus screen: Vaccine status: Patient reports being unvaccinated. Client denies travel out of the [place] in the last 14 days. Ebola Screen: Patient negative for fever greater than or equal to 101.5 degrees Fahrenheit, and additional compatible Ebola Virus Disease symptoms Patient denies exposure to infectious person. Patient denies travel to an Ebola-affected area in the 21 days before illness onset. Initial Sepsis Screen: Does the patient meet any 2 criteria? No. Patient's initial sepsis screen is negative. Does the patient have a suspected source of infection? No. Patient's initial sepsis screen is negative. Risk Assessment: Do you want to hurt yourself or someone else? Patient reports no desire to harm self or others. Onset of symptoms was September 03, 2022. 18:18 Method Of Arrival: Ambulatory kb3 18:18 Acuity: MER 4 kb3 Triage Assessment: 18:21 General: Appears in no apparent distress. Behavior is calm, cooperative. Pain: kb3 Complains of pain in frenulum and gums Pain does not radiate. Pain currently is 10 out of 10 on a pain scale. EENT: Poor dentition noted. swollen gums. 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 - Social history:: Smoking status: Reported history of juuling and/or vaping. Screenin:39 [facility] ED Fall Risk Assessment (Adult) History of falling in the last 3 months, jl7 including since admission No falls in past 3 months (0 pts) Confusion or Disorientation No (0 pts) Intoxicated or Sedated No (0 pts) Impaired Gait No (0 pts) Mobility Assist Device Used No (0 pt) Altered Elimination No (0 pt) Score/Fall Risk Level 0 - 2 = Low Risk Oriented to surroundings, Maintained a safe environment, Educated pt \T\ family on fall prevention, incl call for assistance when getting out of bed. Humpty Dumpty Scale Fall Assessment Tool (age< 18yrs) Gender Female (1 pt). Abuse screen: Denies threats or abuse. Denies injuries from another. Nutritional screening: No deficits noted. Tuberculosis screening: No symptoms or risk factors identified. Fall Risk No fall in past 12 months (0 pts). No secondary diagnosis (0 pts). No IV (0 pts). Ambulatory Aid- None/Bed Rest/Nurse Assist (0 pts). Gait- Normal/Bed Rest/Wheelchair (0 pts) Mental Status- Oriented to own ability (0 pts). Total [place] Fall Scale indicates No Risk (0-24 pts). Vital Signs: 18:18 BP 131 / 79; Pulse 80; Resp 20; Temp 98.1; Pulse Ox 99% ; Weight 47.63 kg; Height 5 ft. kb3 0 in. (152.40 cm); Pain 10/10; 18:18 Body Mass Index 20.51 (47.63 kg, 152.40 cm) kb3 ED Course: 18:10 Patient arrived in ED. mr 18:17 Mitchell Robbins PA is PHCP. cp 18:17 Shiva Kelley MD is Attending Physician. cp 18:21 Triage completed. kb3 18:21 Arm band placed on right wrist. kb3 18:25 Sana Bar RN is Primary Nurse. jl7 18:39 Patient has correct armband on for positive identification. Bed in low position. Call jl7 light in reach. Side rails up X 1. 18:39 No provider procedures requiring assistance completed. Patient did not have IV access jl7 during this emergency room visit. Administered Medications: 18:39 Drug: Viscous Lidocaine Liquid (4 %) 5 ml Route: Mucous Membrane; jl7 18:41 Follow up: Response: Medication administered at discharge. jl7 Medication: 18:39 VIS not applicable for this client. jl7 Outcome: 18:32 Discharge ordered by . cp 18:39 Discharged to home ambulatory. jl7 18:39 Condition: stable 18:39 Discharge instructions given to patient, Instructed on discharge instructions, follow up and referral plans. medication usage, Demonstrated understanding of instructions, follow-up care, medications, Prescriptions given X 2. 18:41 Patient left the ED. jl7 Signatures: Arminda Yuen mr Itzel, Mitchell, Sana Xavier cp, RN RN jl7 Latanya Byers RN RN kb3 Corrections: (The following items were deleted from the chart) 18:40 18:39 Patient has correct armband on for positive identification. Placed in gown. Bed jl7 in low position. Call light in reach. Side rails up X 1. jl7
[2022-09-10 19:01] VITALS: BP 131/79; TEMP 98.1; O2SAT 99
== END 2022-09-10 18:41 | disposition home or self-care (01) ==
LOC: ER 18:07
DX: K02.9 Dental caries, unspecified (principal)
CPT/HCPCS: 99283

== ENCOUNTER 2023-02-23 04:47 | Emergency (ER) | payer OTHER ==
--- OUTSIDE RECORDS SUMMARY | 2023-02-23 04:51 | XMS REPORT | Continuity of Care Document ---
:1990 Author Organization [facility] t Address [address] [place] [address] [place] [id number] Care Team Providers Name Role Phone FIDELIA REED Primary Care Physician Unavailable JORGE LUNSFORD Attending Clinician Unavailable DHEERAJ CONSTANTINO Attending Clinician Unavailable DHEERAJ CONSTANTINO Attending Clinician Unavailable LUC CHARLES Attending Clinician Unavailable LUC CHARLES Attending Clinician Unavailable KANIKA XIAO Attending Clinician Unavailable Doctor Unassigned, [place] Attending Clinician Unavailable FELTON SPENCER Attending Clinician Unavailable Filomena Diaz Attending Clinician Jorge Lunsford MD Attending Clinician FABIAN IGLESIAS Attending Clinician Unavailable Fabian Iglesias MD Attending Clinician Pcp, Patient Does Not Have A Attending Clinician [phone], [facility] Attending Clinician Unavailable Deanna White MD Attending Clinician DEANNA WHITE Attending Clinician Unavailable Roopa Holt Attending Clinician Roopa CALLAHAN Attending Clinician Unavailable FIDELIA REED M.D., FIDELIA Harris M.D. Attending Clin ician Unavailable JORGE LUNSFORD Admitting Clinician Unavailable FIDELIA REED M.D., FIDELIA Harris Admitting Clinician Unavailable Payers Payer Name Policy Type Policy Number Effective Date Expiration Date Florencia WEAVERS [id number] 2019 HEALTH 00:00:00 Problems Condition Condition Condition Status Onset Resolution Last Treating Co mments Source Name Details Category Date Date Treatment Clinician Date Encounter Encounter Disease Active Uni vers for IUD for IUD 5-09 ity of removal removal 00:00: [place] and and 00 Medical reinsertio reinsertio Br anch n n Galactorrh Galactorrh Disease Active U nivers ea ea 3- ity of 00:00: Medical Branch Presence Presence Disease Active Unive rs of of 3-11 [place] Medical contracept contracept Br anch lb device lb device History of History of Disease Active U nivers depression depression 3-11 it y of 00:00: Medical Branch Nausea and Nausea and Disease Active U nivers vomiting, vomiting, 3- ity of unspecifie [place] d vomiting 00 Me dical type type Branch Decreased Decreased Disease Active Uni vers appetite appetite 3-11 ity of 00:00: Medical Branch Decreased Decreased Disease Active Uni vers heart rate heart rate 3-11 it y of 00:00: 00 Medical Branch Dizziness Dizziness Disease Active Uni vers and and 3 it[place] g[place] Heart Heart Disease Active Univers palpitatio palpitatio 3-11 it y of ns ns 00:00: 00 Medical Branch Weight Weight Disease Active Overview: Melissa coates loss loss 6-03 Formattin ity of 00:00: g of this [place] 00 note Medical might be Branch different from the original. Added automatic ally from request for surgery [id number] IBD IBD Disease Active Overview: Melissa coates (inflammat (inflammat 6-03 Formattin ity of ory bowel ory bowel 00:00: g of this [place] disease) disease) 00 note Medica l might be Branch different from the original. Added automatic ally from request for surgery [id number] B12 B12 Disease Active Univers deficiency deficiency 3-25 it y of 00:00: [place] 00 Medical Branch Folate Folate Disease Active Univers deficiency deficiency 3-25 it y of 00:00: [place] [facility] Elevated Elevated Disease Active Unive rs serum serum 3-25 ity of protein protein 00:00: [place] level level 00 [facility] Fatigue, Fatigue, Disease Active Unive rs unspecifie unspecifie -22 it y of d type d type 00:00: [place] [facility] Normal Normal Disease Active Univers labor labor 09-26 ity of 00:00: [place] [facility] Threatened Threatened Disease Active 2015-09 U nivers labor at labor at 10-17 ity of term term 00:00: [place] [facility] Disease Active 2015-09 Univers uterine uterine 09-28 ity of contractio contract[place] [facility] third Branch trimester, trimester, antepartum antepartum No known No known Disease Unive rs active active ity of problems problems [facility] Chronic Chronic Disease Active Univers bronchitis bronchitis it y of [facility] Crohn Crohn Disease Active Univers disease disease ity of [facility] Asthma Asthma Disease Active Univers ity of [facility] Allergic Allergic Disease Active Unive rs rhinitis rhinitis ity of [facility] Allergies, Adverse Reactions, Alerts Allergy Allergy Status Severity Reaction(s) Onset Inactive Treating Comm ents Source Name Type Date Date Clinician TRAMADOL DRUG Active High N/V Univers INGREDI 3-20 ity of 00:00: [address] Tramadol Propensi Active Nausea Univer s ty to and/or 3-20 ity of adverse Vomiting 00:00: [place] reaction 00 [facility] s [place] NO KNOWN Drug Active Univers ALLERGIE Class ity of S [facility] Social History Social Habit Start Date Stop Date Quantity Comments Source History of Smokes tobacco University of tobacco use daily [facility] Exposure to 2023-01-22 2023-02-01 Not sure [facility] SARS-CoV-2 00:00:00 14:46:00 [facility] [place] (event) [place] Alcohol intake 2023-02-01 2023-02-01 Ex-drinker [place] of 00:00:00 00:00:00 (finding) [facility] Tobacco use and 2022-12-03 2022-12-03 Smokeless tobacco Un iversity of exposure 00:00:00 00:00:00 non-user [facility] Tobacco Comment 2019-12-14 2019-12-14 vaping Universit y of 00:00:00 00:00:00 [facility] Sex [birth year] Universit y of 00:00:00 00:00:00 [facility] Smoking Status Start Date Stop Date Source Unknown if ever smoked [facility] Never smoked tobacco [facility] Smokes tobacco daily 2019-12-14 00:00:00 [facility] Medications Ordered Filled Start Stop Current Ordering Indication Dosage Frequency Signature Comments Components Source Medication Medication Date Date Medication? Clinician (SIG) Name Name levonorgest 2022- No [id number] 1{devic Univers reL 02-01 05- e} ity of (KYLEENA) 21:15: 20:18 [place] IUD 1 00 :00 [employer] Branch levonorgest 2022- No [id number] 1{devi 1 Device, Univers reL 02-01 05- e} Intrauteri ity of (KYLEENA) 21:15: 20:18 [place]CE[place] 1 00 :00 1 dose, On [employer] Tue02/01/23 Branch at 1615, Routine levonorgest 2022- No [id number] 1{devic Univers reL 02-01 05- e} ity of (KYLEENA) 21:15: 20:18 [place] IUD 1 00 :00 [employer] Branch levonorgest 2022- No [id number] 1{devi 1 Device, Univers reL 02-01 05- e} Intrauteri ity of (KYLEENA) 21:15: 20:18 [place]CE[place] I[place] 1 00 :00 1 dose, On [employer] Tue02/01/23 Branch at 1615, Routine proMETHazin Yes [id number] 12.5mg Take 1 Univers e 12.5 mg 5-09 tablet by ity o f tablet 00:00: mouth [place] 00 every 4 Medical (four) Branch hours as needed for Nausea and Vomiting (N/V). proMETHazin Yes [id number] 12.5mg Take 1 Univers e 12.5 mg 5-09 tablet by ity o f tablet 00:00: mouth [place] 00 every 4 Medical (four) Branch hours as needed for Nausea and Vomiting (N/V). proMETHazin 2022-0 Yes [id number] 12.5mg Take 1 Univers e 12.5 mg 5-09 tablet by ity o f tablet 00:00: mouth [place] 00 every 4 Medical (four) Branch hours as needed for Nausea and Vomiting (N/V). proMETHazin 2022-0 Yes [id number] 12.5mg Take 1 Univers e 12.5 mg 5-09 tablet by ity o f tablet 00:00: mouth [place] 00 every 4 Medical (four) Branch hours as needed for Nausea and Vomiting (N/V). proMETHazin 2022-0 Yes [id number] 12.5mg Take 1 Univers e 12.5 mg 3-11 tablet by ity o f tablet 00:00: mouth [place] 00 every 4 Medical (four) Branch hours as needed for Nausea and Vomiting (N/V). proMETHazin 2022-0 Yes [id number] 12.5mg Take 1 Univers e 12.5 mg 3-11 tablet by ity o f tablet 00:00: mouth [place] 00 every 4 Medical (four) Branch hours as needed for Nausea and Vomiting (N/V). proMETHazin 2022-0 Yes [id number] 12.5mg Take 1 Univers e 12.5 mg 3-11 tablet by ity o f tablet 00:00: mouth [place] 00 every 4 Medical (four) Branch hours as needed for Nausea and Vomiting (N/V). proMETHazin 2022-0 3- No [id number] 12.5mg Take 1 Univers e 12.5 mg 3-11 05-09 tablet by ity of tablet 00:00: 00:00 mouth [place] 00 :00 every 4 Medical (four) Branch hours as needed for Nausea and Vomiting (N/V). proMETHazin 2022-0 2022- No [id number] 12.5mg Take 1 Univers e 12.5 mg 3-11 05-09 tablet by ity of tablet 00:00: 00:00 mouth [place] 00 :00 every 4 Medical (four) Branch hours as needed for Nausea and Vomiting (N/V). LORazepam 2020-0 2020- No .5mg 0.5 mg, Univ ers (ATIVAN) 02-24 Oral, ity of tablet 0.5 08:30: 07:28 ONCE, 1 [place] as mg 00 :00 dose, [facility] 02/24/21 at Branch 0330, EDUARDO peg-electro 2020-0 Yes [id number] 4000mL Take 4,000 Univers lyte soln 6-02 mL by ity of .74-6 00:00: mouth [place] .74 -5.86 00 SEE-INSTRU Medi dilia gram CTIONS. Branch solution Take as directed peg-electro 2020-0 Yes [id number] 4000mL Take 4,000 Univers lyte soln 6-02 mL by ity of .74-6 00:00: mouth [place] .74 -5.86 00 SEE-INSTRU Medi dilia gram CTIONS. Branch solution Take as directed peg-electro 2020-0 Yes [id number] 4000mL Take 4,000 Univers lyte soln 6-02 mL by ity of .74-6 00:00: mouth [place] .74 -5.86 00 SEE-INSTRU Medi dilia gram CTIONS. Branch solution Take as directed peg-electro 2020-0 Yes [id number] 4000mL Take 4,000 Univers lyte soln 6-02 mL by ity of .-6 00:00: mouth [place] .74 -5.86 00 SEE-INSTRU Medi dilia gram CTIONS. Branch solution Take as directed peg-electro 2020-0 Yes [id number] 4000mL Take 4,000 Univers lyte soln 6-02 mL by ity of 74-6 00:00: mouth [place] .74 -5.86 00 SEE-INSTRU Medi dilia gram CTIONS. Branch solution Take as directed peg-electro 2020-0 Yes [id number] 4000mL Take 4,000 Univers lyte soln 6-02 mL by ity of .74-6 00:00: mouth [place] .74 -5.86 00 SEE-INSTRU Medi dilia gram CTIONS. Branch solution Take as directed peg-electro 2020-0 Yes [id number] 4000mL Take 4,000 Univers lyte soln 6-02 mL by ity of .74-6 00:00: mouth [place] .74 -5.86 00 SEE-INSTRU Medi dilia gram CTIONS. Branch solution Take as directed peg-electro 2020-0 Yes [id number] 4000mL Take 4,000 Univers lyte soln 6-02 mL by ity of 236-22.74-6 00:00: mouth [place] .74 -5.86 00 SEE-INSTRU Medi dilia gram CTIONS. Branch solution Take as directed peg-electro 2020-0 Yes [id number] 4000mL Take 4,000 Univers lyte soln 6-02 mL by ity of 236-22.74-6 00:00: mouth [place] .74 -5.86 00 SEE-INSTRU Medi dilia gram CTIONS. Branch solution Take as directed peg-electro 2020-0 Yes [id number] 4000mL Take 4,000 Univers lyte soln 6-02 mL by ity of 236-.74-6 00:00: mouth [place] .74 -5.86 00 SEE-INSTRU Medi dilia gram CTIONS. Branch solution Take as directed peg-electro 2020-0 Yes [id number] 4000mL Take 4,000 Univers lyte soln 6-02 mL by ity of 236-.74-6 00:00: mouth [place] .74 -5.86 00 SEE-INSTRU Medi dilia gram CTIONS. Branch solution Take as directed ondansetron 2020-0 2020- No Take by Un kehinde HCl (ZOFRAN 4-10 04-10 mouth. ity o f ORAL) 21:49: 00:00 [place] 37 :00 Medical Branch ondansetron 2020-0 Yes [id number] 4mg Take 1 Univers 4 mg tablet 4-10 tablet by ity of 00:00: mouth [place] 00 every 8 Medical (eight) Branch hours as needed for Nausea and Vomiting (N/V). ondansetron 2020-0 Yes [id number] 4mg Take 1 Univers 4 mg tablet 4-10 tablet by ity of 00:00: mouth [place] 00 every 8 Medical (eight) Branch hours as needed for Nausea and Vomiting (N/V). ondansetron 2020-0 Yes [id number] 4mg Take 1 Univers 4 mg tablet 4-10 tablet by ity of 00:00: mouth [place] 00 every 8 Medical (eight) Branch hours as needed for Nausea and Vomiting (N/V). ondansetron 2020-0 Yes [id number] 4mg Take 1 Univers 4 mg tablet 4-10 tablet by ity of 00:00: mouth [place] 00 every 8 Medical (eight) Branch hours as needed for Nausea and Vomiting (N/V). ondansetron 2020-0 Yes [id number] 4mg Take 1 Univers 4 mg tablet 4-10 tablet by ity of 00:00: mouth [place] 00 every 8 Medical (eight) Branch hours as needed for Nausea and Vomiting (N/V). ondansetron 2020-0 Yes [id number] 4mg Take 1 Univers 4 mg tablet 4-10 tablet by ity of 00:00: mouth [place] 00 every 8 Medical (eight) Branch hours as needed for Nausea and Vomiting (N/V). ondansetron 2020-0 Yes [id number] 4mg Take 1 Univers 4 mg tablet 4-10 tablet by ity of 00:00: mouth [place] 00 every 8 Medical (eight) Branch hours as needed for Nausea and Vomiting (N/V). ondansetron 2020-0 Yes [id number] 4mg Take 1 Univers 4 mg tablet 4-10 tablet by ity of 00:00: mouth [place] 00 every 8 Medical (eight) Branch hours as needed for Nausea and Vomiting (N/V). ondansetron 2020-0 Yes [id number] 4mg Take 1 Univers 4 mg tablet 4-10 tablet by ity of 00:00: mouth [place] 00 every 8 Medical (eight) Branch hours as needed for Nausea and Vomiting (N/V). ondansetron 2020-0 Yes [id number] 4mg Take 1 Univers 4 mg tablet 4-10 tablet by ity of 00:00: mouth [place] 00 every 8 Medical (eight) Branch hours as needed for Nausea and Vomiting (N/V). ondansetron 2020-0 Yes [id number] 4mg Take 1 Univers 4 mg tablet 4-10 tablet by ity of 00:00: mouth [place] 00 every 8 Medical (eight) Branch hours as needed for Nausea and Vomiting (N/V). ondansetron 2020-0 Yes [id number] 4mg Take 1 Univers 4 mg tablet 4-10 tablet by ity of 00:00: mouth [place] 00 every 8 Medical (eight) Branch hours as needed for Nausea and Vomiting (N/V). ondansetron 2020-0 Yes [id number] 4mg Take 1 Univers 4 mg tablet 4-10 tablet by ity of 00:00: mouth [place] 00 every 8 Medical (eight) Branch hours as needed for Nausea and Vomiting (N/V). vitamin 2020-0 Yes [id number] 1000ug Take 1 U nivers B-12 1,000 3-25 tablet by ity of mcg tablet 00:00: mouth [place] 00 daily. [facility] Branch foLIC acid 2020-0 Yes [id number] 1mg Take 1 Univers 1 mg tablet 3-25 tablet by ity of 00:00: mouth [place] 00 daily. [facility] Branch vitamin 2020-0 Yes [id number] 1000ug Take 1 U nivers B-12 1,000 3-25 tablet by ity of mcg tablet 00:00: mouth [place] 00 daily. [facility] Branch foLIC acid 2020-0 Yes [id number] 1mg Take 1 Univers 1 mg tablet 3-25 tablet by ity of 00:00: mouth [place] 00 daily. [facility] Branch vitamin 2020-0 Yes [id number] 1000ug Take 1 U nivers B-12 1,000 3-25 tablet by ity of mcg tablet 00:00: mouth [place] 00 daily. [facility] Branch foLIC acid 2020-0 Yes [id number] 1mg Take 1 Univers 1 mg tablet 3-25 tablet by ity of 00:00: mouth [place] 00 daily. [facility] Branch vitamin 2020-0 Yes [id number] 1000ug Take 1 U nivers B-12 1,000 3-25 tablet by ity of mcg tablet 00:00: mouth [place] 00 daily. [facility] Branch foLIC acid 2020-0 Yes [id number] 1mg Take 1 Univers 1 mg tablet 3-25 tablet by ity of 00:00: mouth [place] 00 daily. [facility] Branch vitamin 2020-0 Yes [id number] 1000ug Take 1 U nivers B-12 1,000 3-25 tablet by ity of mcg tablet 00:00: mouth [place] 00 daily. [facility] Branch foLIC acid 2020-0 Yes [id number] 1mg Take 1 Univers 1 mg tablet 3-25 tablet by ity of 00:00: mouth [place] 00 daily. [facility] Branch vitamin 2020-0 Yes [id number] 1000ug Take 1 U nivers B-12 1,000 3-25 tablet by ity of mcg tablet 00:00: mouth [place] 00 daily. [facility] foLIC acid 2020-0 Yes [id number] 1mg Take 1 Univers 1 mg tablet 3-25 tablet by ity of 00:00: mouth [place] 00 daily. [facility] vitamin 2020-0 Yes [id number] 1000ug Take 1 U nivers B-12 1,000 3-25 tablet by ity of mcg tablet 00:00: mouth [place] 00 daily. [facility] Branch foLIC acid 2020-0 Yes [id number] 1mg Take 1 Univers 1 mg tablet 3-25 tablet by ity of 00:00: mouth [place] 00 daily. [facility] Branch vitamin 2020-0 Yes [id number] 1000ug Take 1 U nivers B-12 1,000 3-25 tablet by ity of mcg tablet 00:00: mouth [place] 00 daily. [facility] Branch foLIC acid 2020-0 Yes [id number] 1mg Take 1 Univers 1 mg tablet 3-25 tablet by ity of 00:00: mouth [place] 00 daily. [facility] Branch vitamin 2020-0 Yes [id number] 1000ug Take 1 U nivers B-12 1,000 3-25 tablet by ity of mcg tablet 00:00: mouth [place] 00 daily. [facility] Branch foLIC acid 2020-0 Yes [id number] 1mg Take 1 Univers 1 mg tablet 3-25 tablet by ity of 00:00: mouth [place] 00 daily. [facility] Branch vitamin 2020-0 Yes [id number] 1000ug Take 1 U nivers B-12 1,000 3-25 tablet by ity of mcg tablet 00:00: mouth [place] 00 daily. [facility] Branch foLIC acid 2020-0 Yes [id number] 1mg Take 1 Univers 1 mg tablet 3-25 tablet by ity of 00:00: mouth [place] 00 daily. [facility] Branch vitamin 2020-0 Yes [id number] 1000ug Take 1 U nivers B-12 1,000 3-25 tablet by ity of mcg tablet 00:00: mouth [place] 00 daily. [facility] Branch foLIC acid 2020-0 Yes [id number] 1mg Take 1 Univers 1 mg tablet 3-25 tablet by ity of 00:00: mouth [place] 00 daily. [facility] Branch vitamin 2020-0 Yes [id number] 1000ug Take 1 U nivers B-12 1,000 3-25 tablet by ity of mcg tablet 00:00: mouth [place] 00 daily. [facility] Branch foLIC acid 2020-0 Yes [id number] 1mg Take 1 Univers 1 mg tablet 3-25 tablet by ity of 00:00: mouth [place] 00 daily. [facility] Branch vitamin 2020-0 Yes [id number] 1000ug Take 1 U nivers B-12 1,000 3-25 tablet by ity of mcg tablet 00:00: mouth [place] 00 daily. [facility] foLIC acid 2020-0 Yes [id number] 1mg Take 1 Univers 1 mg tablet 3-25 tablet by ity of 00:00: mouth [place] 00 daily. Medical Branch vitamin 2020-0 Yes [id number] 1000ug Take 1 U nivers B-12 1,000 3-25 tablet by ity of mcg tablet 00:00: mouth [place] 00 daily. Medical Branch foLIC acid 2020-0 Yes [id number] 1mg Take 1 Univers 1 mg tablet 3-25 tablet by ity of 00:00: mouth [place] 00 daily. Medical Branch vitamin 2020-0 Yes [id number] 1000ug Take 1 U nivers B-12 1,000 3-25 tablet by ity of mcg tablet 00:00: mouth [place] 00 daily. Medical Branch foLIC acid 2020-0 Yes [id number] 1mg Take 1 Univers 1 mg tablet 3-25 tablet by ity of 00:00: mouth [place] 00 daily. Medical Branch sulfamethox 2020-0 2020- No Take by Un kehinde azole/trime 3-20 03-20 mouth. ity o f thoprim 20:21: 00:00 [place] (SMZ-TMP DS 36 :00 Medical ORAL) Branch sulfamethox 2020-0 2020- No Take by Un kehinde azole/trime 3-20 03-20 mouth. ity o f thoprim 20:21: 00:00 [place] (SMZ-TMP DS 36 :00 Medical ORAL) Branch ondansetron 2020-0 Yes Take by Uni vers HCl (ZOFRAN 3-20 mouth. ity of ORAL) 19:46: [place] [address] Medical Branch ondansetron 2020-0 Yes Take by Uni vers HCl (ZOFRAN 3-20 mouth. ity of ORAL) 19:46: [place] [address] Medical Branch ondansetron 2020-0 Yes Take by Uni vers HCl (ZOFRAN 3-20 mouth. ity of ORAL) 19:46: [place] [address] Medical Branch ondansetron 2020-0 Yes Take by Uni vers HCl (ZOFRAN 3-20 mouth. ity of ORAL) 19:46: [place] [address] Medical Branch ondansetron 2020-0 Yes Take by Uni vers HCl (ZOFRAN 3-20 mouth. ity of ORAL) 19:46: [place] [address] Medical Branch albuterol 2020-0 Yes [id number] 2{puff} Inhale 2 Univers 90 3-20 Puffs ity of mcg/actuati 00:00: every 6 [place] on inhaler 00 (six) Medical hours as Branch needed for Wheezing or Shortness of Breath. albuterol 2020-0 Yes [id number] 2{puff} Inhale 2 Univers 90 3-20 Puffs ity of mcg/actuati 00:00: every 6 [place] on inhaler 00 (six) Medical hours as Branch needed for Wheezing or Shortness of Breath. albuterol 2020-0 Yes [id number] 2{puff} Inhale 2 Univers 90 3-20 Puffs ity of mcg/actuati 00:00: every 6 [place] on inhaler 00 (six) Medical hours as Branch needed for Wheezing or Shortness of Breath. albuterol 2020-0 Yes [id number] 2{puff} Inhale 2 Univers 90 3-20 Puffs ity of mcg/actuati 00:00: every 6 [place] on inhaler 00 (six) Medical hours as Branch needed for Wheezing or Shortness of Breath. albuterol 2020-0 Yes [id number] 2{puff} Inhale 2 Univers 90 3-20 Puffs ity of mcg/actuati 00:00: every 6 [place] on inhaler 00 (six) Medical hours as Branch needed for Wheezing or Shortness of Breath. albuterol 2020-0 Yes [id number] 2{puff} Inhale 2 Univers 90 3-20 Puffs ity of mcg/actuati 00:00: every 6 [place] on inhaler 00 (six) Medical hours as Branch needed for Wheezing or Shortness of Breath. albuterol 2020-0 Yes [id number] 2{puff} Inhale 2 Univers 90 3-20 Puffs ity of mcg/actuati 00:00: every 6 [place] on inhaler 00 (six) Medical hours as Branch needed for Wheezing or Shortness of Breath. albuterol 2020-0 Yes [id number] 2{puff} Inhale 2 Univers 90 3-20 Puffs ity of mcg/actuati 00:00: every 6 [place] on inhaler 00 (six) Medical hours as Branch needed for Wheezing or Shortness of Breath. albuterol 2020-0 Yes [id number] 2{puff} Inhale 2 Univers 90 3-20 Puffs ity of mcg/actuati 00:00: every 6 [place] on inhaler 00 (six) Medical hours as Branch needed for Wheezing or Shortness of Breath. albuterol 2020-0 Yes [id number] 2{puff} Inhale 2 Univers 90 3-20 Puffs ity of mcg/actuati 00:00: every 6 [place] on inhaler 00 (six) Medical hours as Branch needed for Wheezing or Shortness of Breath. albuterol 2020-0 Yes [id number] 2{puff} Inhale 2 Univers 90 3-20 Puffs ity of mcg/actuati 00:00: every 6 [place] on inhaler 00 (six) Medical hours as Branch needed for Wheezing or Shortness of Breath. albuterol 2020-0 Yes [id number] 2{puff} Inhale 2 Univers 90 3-20 Puffs ity of mcg/actuati 00:00: every 6 [place] on inhaler 00 (six) Medical hours as Branch needed for Wheezing or Shortness of Breath. albuterol 2020-0 Yes [id number] 2{puff} Inhale 2 Univers 90 3-20 Puffs ity of mcg/actuati 00:00: every 6 [place] on inhaler 00 (six) Medical hours as Branch needed for Wheezing or Shortness of Breath. albuterol 2020-0 Yes [id number] 2{puff} Inhale 2 Univers 90 3-20 Puffs ity of mcg/actuati 00:00: every 6 [place] as on inhaler 00 (six) Medical hours as Branch needed for Wheezing or Shortness of Breath. albuterol 2020-0 Yes [id number] 2{puff} Inhale 2 Univers 90 3-20 Puffs ity of mcg/actuati 00:00: every 6 [place] as on inhaler 00 (six) Medical hours as Branch needed for Wheezing or Shortness of Breath. albuterol 2020-0 Yes [id number] 2{puff} Inhale 2 Univers 90 3-20 Puffs ity of mcg/actuati 00:00: every 6 [place] as on inhaler 00 (six) Medical hours as Branch needed for Wheezing or Shortness of Breath. albuterol 2020-0 Yes [id number] 2{puff} Inhale 2 Univers 90 3-20 Puffs ity of mcg/actuati 00:00: every 6 [place] as on inhaler 00 (six) Medical hours as Branch needed for Wheezing or Shortness of Breath. albuterol 2020-0 Yes [id number] 2{puff} Inhale 2 Univers 90 3-20 Puffs ity of mcg/actuati 00:00: every 6 [place] as on inhaler 00 (six) Medical hours as Branch needed for Wheezing or Shortness of Breath. sulfamethox 2019-2019- No [id number] 1{tbl} Take 1 Univers azole-trime 3-20 - [id number] tablet by ity of thoprim 00:00: 04:59 mouth 2 [place] (BACTRIM 00 :00 (two) Medical DS) 800-160 times Branch mg per daily for tablet 4 days. sulfamethox 2019-0 2019- No [id number] 1{tbl} Take 1 Univers azole-trime 3-20 -25 [id number] tablet by ity of thoprim 00:00: 04:59 mouth 2 [place] (BACTRIM 00 :00 (two) Medical DS) 800-160 times Branch mg per daily for tablet 4 days. sulfamethox 2019-2019- No [id number] 1{tbl} Take 1 Univers azole-trime 3-20 -25 [id number] tablet by ity of thoprim 00:00: 04:59 mouth 2 [place] (BACTRIM 00 :00 (two) Medical DS) 800-160 times Branch mg per daily for tablet 4 days. fluconazole 2019- 2020- No [id number] 150mg Take 1 Univers 150 mg 3-20 -21 tablet by ity of tablet 00:00: 04:59 [place] :[place] now for 1 Medical dose. May Branch repeat in 3-4 days. fluconazole 2019-0 2020- No [id number] 150mg Take 1 Univers 150 mg 3-20 -21 tablet by ity of tablet 00:00: 04:59 mouth [place] :[place] now for 1 Medical dose. May Branch repeat in 3-4 days. fluconazole 2020-0 2020- No [id number] 150mg Take 1 Univers 150 mg 3-20 -21 tablet by ity of tablet 00:00: 04:59 mouth [place] :[place] now for 1 Medical dose. May Branch repeat in 3-4 days. ondansetron 2019-0 2020- No 1{tbl} Take 1 U nivers 4 mg tablet 3-15 04-10 tablet by it y of 00:00: 00:00 mouth [place] 00 :00 every 8 Medical (eight) Branch hours as needed for Nausea. traMADol 2019-0 2019- No 50mg 50 mg, Univer s (ULTRAM) 12-05 Oral, ity of tablet 50 07:00: 05:54 [place] :[place] dose, [facility] 12/06/19 at Branch 0200, Routine cephALEXin 2019- 2020- No 500mg 500 mg, Un kehinde (KEFLEX) 12-05 Oral, ity of capsule 500 06:45: 05:52 [place] dose, [facility] 12/06/19 at [place] 0145, EDUARDO
Re ason for Anti-Infec tive: Documented Infection< br>Documen alexia Infection Site: Skin / Soft Tissue
Duration of Therapy: Other (see Comments) mupirocin 2 2020-0 Yes [id number] Apply to Univers % ointment 3-10 area(s) 3 ity of 00:00: (three) [place] 00 times Medical daily. Branch mupirocin 2 2020-0 Yes [id number] Apply to Univers % ointment 3-10 area(s) 3 ity of 00:00: (three) [place] 00 times Medical daily. Branch mupirocin 2 2020-0 Yes [id number] Apply to Univers % ointment 3-10 area(s) 3 ity of 00:00: (three) [place] 00 times Medical daily. Branch mupirocin 2 2020-0 Yes [id number] Apply to Univers % ointment 3-10 area(s) 3 ity of 00:00: (three) [place] 00 times Medical daily. Branch mupirocin 2 2020-0 Yes [id number] Apply to Univers % ointment 3-10 area(s) 3 ity of 00:00: (three) [place] 00 times Medical daily. Branch mupirocin 2 2020-0 Yes [id number] Apply to Univers % ointment 3-10 area(s) 3 ity of 00:00: (three) [place] 00 times Medical daily. Branch mupirocin 2 2020-0 Yes [id number] Apply to Univers % ointment 3-10 area(s) 3 ity of 00:00: (three) [place] 00 times Medical daily. Branch mupirocin 2 2020-0 Yes [id number] Apply to Univers % ointment 3-10 area(s) 3 ity of 00:00: (three) [place] 00 times Medical daily. Branch mupirocin 2 2020-0 Yes [id number] Apply to Univers % ointment 3-10 area(s) 3 ity of 00:00: (three) [place] 00 times Medical daily. Branch mupirocin 2 2020-0 Yes [id number] Apply to Univers % ointment 3-10 area(s) 3 ity of 00:00: (three) [place] 00 times Medical daily. Branch mupirocin 2 2020-0 Yes [id number] Apply to Univers % ointment 3-10 area(s) 3 ity of 00:00: (three) [place] 00 times Medical daily. Branch mupirocin 2 2020-0 Yes [id number] Apply to Univers % ointment 3-10 area(s) 3 ity of 00:00: (three) [place] 00 times Medical daily. Branch mupirocin 2 2020-0 Yes [id number] Apply to Univers % ointment 3-10 area(s) 3 ity of 00:00: (three) [place] 00 times Medical daily. Branch mupirocin 2 2020-0 Yes [id number] Apply to Univers % ointment 3-10 area(s) 3 ity of 00:00: (three) [place] 00 times Medical daily. Branch mupirocin 2 2020-0 Yes [id number] Apply to Univers % ointment 3-10 area(s) 3 ity of 00:00: (three) [place] 00 times Medical daily. Branch mupirocin 2 2020-0 Yes [id number] Apply to Univers % ointment 3-10 area(s) 3 ity of 00:00: (three) [place] 00 times Medical daily. Branch mupirocin 2 2020-0 Yes [id number] Apply to Univers % ointment 3-10 area(s) 3 ity of 00:00: (three) [place] 00 times Medical daily. Branch mupirocin 2 2020-0 Yes [id number] Apply to Univers % ointment 3-10 area(s) 3 ity of 00:00: (three) [place] 00 times Medical daily. Branch mupirocin 2 2020-0 Yes [id number] Apply to Univers % ointment 3-10 area(s) 3 ity of 00:00: (three) [place] 00 times Medical daily. Branch mupirocin 2 2020-0 Yes [id number] Apply to Univers % ointment 3-10 area(s) 3 ity of 00:00: (three) [place] 00 times Medical daily. Branch mupirocin 2 2020-0 Yes [id number] Apply to Univers % ointment 3-10 area(s) 3 ity of 00:00: (three) [place] 00 times Medical daily. Branch mupirocin 2 2020-0 Yes [id number] Apply to Univers % ointment 3-10 area(s) 3 ity of 00:00: (three) [place] 00 times Medical daily. Branch cephALEXin 2020-0 2020- No [id number] 500mg Take 1 Univers (KEFLEX) 3-06 28-21 capsule by ity of 500 mg 00:00: 04:59 mouth 3 [place] capsule 00 :00 (three) Medical times Branch daily for 10 days. cephALEXin 2020-0 2020- No [id number] 500mg Take 1 Univers (KEFLEX) 3-10 -21 capsule by ity of 500 mg 00:00: 04:59 mouth 3 [place] capsule 00 :00 (three) Medical times Branch daily for 10 days. cephALEXin 2020-0 2020- No [id number] 500mg Take 1 Univers (KEFLEX) 3-10 -21 capsule by ity of 500 mg 00:00: 04:59 mouth 3 [place] capsule 00 :00 (three) Medical times Branch daily for 10 days. cephALEXin 2020-0 2020- No [id number] 500mg Take 1 Univers (KEFLEX) 3-10 03-21 capsule by ity of 500 mg 00:00: 04:59 mouth 3 [place] capsule 00 :00 (three) Medical times Branch daily for 10 days. cephALEXin 2020-0 2020- No [id number] 500mg Take 1 Univers (KEFLEX) 3-10 03-20 capsule by ity of 500 mg 00:00: 00:00 mouth 3 [place] capsule 00 :00 (three) Medical times Branch daily for 10 days. cephALEXin 2020- No [id number] 500mg Take 1 Univers (KEFLEX) 12-03 capsule by ity of 500 mg 00:00: 00:00 mouth 3 [place] capsule 00 :00 (three) Medical times [place] daily for 10 days. Immunizations Ordered Filled Immunization Date Status Comments Sourc e Immunization Name Name Tdap 2019-12-10 Completed University of 00:00:00 [facility] [place] Branch Tdap 2019-12-10 Completed University of 00:00: [facility] [place] Branch Tdap 2019-12-10 Completed University of 00:00: [facility] [place] Branch Tdap 2019-12-10 Completed University of 00:00:00 [facility] [place] Branch Tdap 2019-12-10 Completed University of 00:00:00 [place] [facility] Tdap 2019-12-10 Completed University of 00:00:00 [facility] [place] Branch Tdap 2019-12-10 Completed University of 00:00:00 [facility] [place] Branch TDAP 2019-12-10 Completed University of 00:00:00 [place] [facility] TDAP 2019-12-10 Completed University of 00:00:00 [place] [facility] TDAP 2019-12-10 Completed University of 00:00:00 [facility] [place] Branch TDAP 2019-12-10 Completed University of 00:00:00 [place] [facility] TDAP 2019-12-10 Completed University of 00:00:00 [place] [facility] TDAP 2019-12-10 Completed University of 00:00:00 [facility] [place] Branch TDAP 2019-12-10 Completed University of 00:00:00 [facility] [place] Branch TDAP 2019-12-10 Completed University of 00:00:00 [place] [facility] TDAP 2019-12-10 Completed University of 00:00:00 [place] [facility] TDAP 2019-12-10 Completed University of 00:00:00 [facility] [place] Branch Tdap 2019-12-10 Completed University of 00:00:00 [facility] Vital Signs Vital Name Observation Time Observation Value Comments Source Systolic blood 2023-02-01 19:59:00 137 mm[Hg] Univer sity of pressure [facility] Diastolic blood 2023-02-01 19:59:00 77 mm[Hg] Unive rsity of pressure [facility] Heart rate 2023-02-01 19:59:00 60 /min Universi ty of [facility] Body temperature 2023-02-01 19:59:00 36.67 [place] Univ ersity of [place] [facility] Respiratory rate 2023-02-01 19:59:00 16 /min Univ ersity of [place] [facility] Body height 2023-02-01 19:59:00 152.4 cm Universi ty of [place] [facility] [place] Body weight 2023-02-01 19:59:00 47.673 kg Universi ty of [place] [facility] [place] BMI 2023-02-01 19:59:00 20.53 kg/m2 Universi ty of [facility] [place] Branch Systolic blood 2022-12-03 21:13:00 137 mm[Hg] Univer sity of pressure [place] [facility] Diastolic blood 2022-12-03 21:13:00 70 mm[Hg] Unive rsity of pressure [place] [facility] Heart rate 2022-12-03 21:13:00 47 /min Universi ty of [place] [facility] [place] Respiratory rate 2022-12-03 21:13:00 18 /min Univ ersity of [facility] Body height 2022-12-03 21:13:00 152.4 cm Universi ty of [place] [facility] [place] Body weight 2022-12-03 21:13:00 47.174 kg Universi ty of [place] [facility] [place] BMI 2022-12-03 21:13:00 20.31 kg/m2 Universi ty [facility] [place] [facility] Systolic blood 2021-02-24 10:30:00 112 mm[Hg] Univer sity of pressure [place] [facility] Diastolic blood 2021-02-24 10:30:00 87 mm[Hg] Unive rsity of pressure [facility] Heart rate 2021-02-24 10:30:00 94 /min Universi ty of [facility] Respiratory rate 2021-02-24 10:30:00 16 /min Univ ersity of [facility] Oxygen saturation in 2021-02-24 10:30:00 99 /min University of Arterial blood by [facility] Pulse oximetry Branch Body weight 2021-02-24 07:20:00 43.092 kg Universi ty of [place] [facility] [place] BMI 2021-02-24 07:20:00 18.55 kg/m2 Universi ty of [facility] Body temperature 2021-02-24 07:11:00 37.56 [place] Univ ersity of [facility] [place] Branch Systolic blood 2019-12-14 19:43:00 125 mm[Hg] Univer sity of pressure [place] [facility] Diastolic blood 2019-12-14 19:43:00 82 mm[Hg] Unive rsity of pressure [place] [facility] Heart rate 2019-12-14 19:43:00 63 /min Universi ty of [place] [facility] Body height 2019-12-14 19:43:00 152.4 cm Universi ty [facility] [place] [facility] Body weight 2019-12-14 19:43:00 52.617 kg Universi ty [facility] [place] [facility] BMI 2019-12-14 19:43:00 22.65 kg/m2 Universi ty [facility] [place] [facility] Oxygen saturation in 2019-12-14 19:43:00 100 /min University of Arterial blood by [facility] dilia Pulse oximetry Branch Systolic blood 2019-12-06 03:57:00 114 mm[Hg] Univer sity of pressure [place] [facility] Diastolic blood 2019-12-06 03:57:00 70 mm[Hg] Unive rsity of pressure [place] [facility] Heart rate 2019-12-06 03:57:00 95 /min Universi ty of [place] [facility] Body temperature 2019-12-06 03:57:00 37.5 [place] Univ ers[facility] [place] [facility] Respiratory rate 2019-12-06 03:57:00 20 /min Univ ersity [facility] [place] [facility] Body weight 2019-12-06 03:57:00 53.071 kg Universi ty of [place] [facility] BMI 2019-12-06 03:57:00 22.85 kg/m2 Universi ty [facility] [place] [facility] Oxygen saturation in 2019-12-06 03:57:00 100 /min University of Arterial blood by [facility] dilia Pulse oximetry Branch Systolic blood 2019-12-05 00:50:00 128 mm[Hg] Univer sity of pressure [place] [facility] Diastolic blood 2019-12-05 00:50:00 75 mm[Hg] Unive rsity of pressure [place] [facility] Heart rate 2019-12-05 00:50:00 97 /min Universi ty of [place] [facility] Body temperature 2019-12-05 00:50:00 36.78 [place] Univ ers[facility] [place] [facility] Respiratory rate 2019-12-05 00:50:00 16 /min Univ ersity of [place] [facility] Body height 2019-12-05 00:50:00 152.4 cm Universi ty [facility] [place] [facility] Body weight 2019-12-05 00:50:[address] [facility] BMI 2019-12-05 00:50:00 23.44 kg/m2 [facility] Oxygen saturation in 2019-12-05 00:50:00 100 /min [facility] Arterial blood by [facility] Pulse oximetry Branch Procedures Procedure Date / Time Performing Clinician Source Performed CONSENT FOR CONTRACEPTION 2023-02-01 05:01:00 Doctor Christian, [facility] [place] [facility] POCT TEST 2023-02-01 00:00:00 Luc Charles [facility] ASSIGNMENT OF BENEFITS 2022-12-03 20:52:08 Doctor Unaalo, [facility] [place] [facility] DISCLOSURE AND CONSENT, 2020-02-26 05:01:00 Doctor Christian, [facility] MEDICAL AND SURGICAL [place] [facility] PROCEDURES ASSIGNMENT OF BENEFITS 2019-12-14 19:26:11 Doctor Christian, [facility] [place] [facility] EMERGENCY SERVICES 2019-12-06 05:01:00 Doctor Christian [facility] AGREEMENTS AND [place] [facility] AUTHORIZATIONS CONSENT/REFUSAL FOR 2019-12-06 03:49:05 Doctor Christian [facility] DIAGNOSIS AND TREATMENT [place] [facility] [place] NOTICE OF PRIVACY 2019-12-05 00:46:32 Doctor Christian [facility] PRACTICES [place] [facility] CONSENT/REFUSAL FOR 2019-12-05 00:46:11 Doctor Christian [facility] DIAGNOSIS AND TREATMENT [place] [facility] [place] Encounters Start End Encounter Admission Attending Care Care Encounter Source Date/Time Date/Time Type Type Clinicians Facility Department ID 2021-07-26 Emergency [facility] [id number] Univers 22:16:08 [facility] 2021-07-24 Outpatient R JONN [email or web address] RAMOS [id number] Univers 00:12:56 JORGE [facility] 2023-04-26 2023-04-26 Outpatient R [facility] [id number] Univers 15:00:00 15:00:00 [facility] 2023-02-16 2023-02-16 Outpatient R DHEERAJ CONSTANTINO [facility] 10 [id number] Univers 15:30:00 15:30:00 DHEERAJ CONSTANTINO i [facility] 2023-02-08 2023-02-08 Outpatient R LUC CHARLES [facility] [id number] Univers 00:00:00 00:00:00 VALERIELUC RENDON [facility] 2023-02-04 2023-02-04 [facility] [id number] Univers 00:00:00 00:00:00 Luc DE JESUS [id number] it y of [id number] [id number] [address] 2023-02-01 2023-02-01 Outpatient R [facility] [id number] Univers 15:00:00 15:13:31 VANELUC GARCIA [facility] 2023-02-01 2023-02-01 Office [facility] 1.2.840.114 [id number] Univers 15:00:00 15:13:31 Visit Luc DE JESUS [id number] it y of [id number] [id number] [address] 2023-02-01 2023-02-01 Orders Doctor KODAK 1.2.840.114 [id number] Univers 00:00:00 00:00:00 Only Unassigned, JUAN MANUEL [id number] ity of [place] [facility] [id number] [place] [id number] [address] 2023-01-26 2023-01-26 Telephone [facility] 1.2.840.11 [id number] Univers 00:00:00 00:00:00 Luc DE JESUS [id number] it y [id number] [id number] [address] 2023-01-07 2023-01-07 Outpatient R DHEERAJ CONSTANTINO [facility] 10 [id number] Univers 11:00:00 11:00:00 DHEERAJ CONSTANTINO i ty of [facility] 2022 2022 Outpatient R LUC CHARLES [facility] B [id number] Univers 14:30:00 14:30:00 LUC CHARLES khris [facility] 2022-12-03 2022-12-03 Outpatient R LUC CHARLES [facility] B [id number] Univers 15:00:00 15:37:02 DWIGHTLUC MARCIAL khris [facility] 2022-12-03 2022-12-03 Office [facility] 1.2.840.114 [id number] Univers 15:00:00 15:37:02 Visit Luc LIZA 350.1.13.10 it y of WOMEN'S 4.2.7.2.686 [facility] [id number] [facility] 134 Branch 2022-12-03 2022-12-03 Orders Doctor KODAK 1.2.840.114 [id number] Univers 00:00:00 00:00:00 Only Unassigned, JUAN MANUEL 350.1.13.10 ity [address] [place] [facility] 4.2.7.2.686 [place] [id number] [facility] 009 Branch 2021-05-13 2021-05-13 [facility] [id number] Univers 15:30:00 15:30:00 FELTON [facility] 2021-02-24 2021-02-24 [facility] [id number] Univers 02:21:00 05:41:00 Filomena Boone 350.1.13.10 i ty of [place] 4.2.7.2.686 [facility] [id number] [facility] 084 Branch 2020-05-28 2020-05-28 Out[facility] [id number] Univers 15:00:00 15:00:00 FELTON [facility] 2020-03-07 2020-03-07 Telephone [facility] 1.2.840.114 [id number] Univers 00:00:00 00:00:00 Jorge [place] 350.1.13.10 i [id number] [phone] [facility] 377 [facility] 2020-02-26 2020-02-26 Outpatient R JONN [facility] [id number] Univers 14:30:00 14:30:00 JOGRE ity of [facility] 2020-02-26 2020-02-26 Orders Doctor KODAK 1.2.840.114 [id number] Univers 00:00:00 00:00:00 Only Unassigned, JUAN MANUEL 350.1.13.[address] [place] [facility] 4.2.7.2.686 [place] [id number] [address] 2020-01-29 2020-01-29 Outpatient R STAN [facility] [id number] Univers 10:00:00 10:00:00 WONDIFUL ity o f [facility] 2020-01-29 2020-01-29 Telemedici Stan [facility] [[email or web address]] 1.2.840.114 [id number] Univers 07:31:16 07:46:16 ne Visit Wondiful A [place] 350.1.13.10 it[place] 4[place].2.[place] [phone] [facility] 044 [facility] 2020-01-04 2020-01-04 Telephone Giancarlo [facility] [[email or web address]] [id number] Univers 00:00:00 00:00:00 Patient Health 350.1.13.10 it y of [place].2.[place] Professio [id number] [address] Office [facility] 2019-12-19 2019-12-19 Case Stan [facility] [[email or web address]] 1.2.840.114 [id number] Univers 00:00:00 00:00:00 Management Wondiful A Health 350.1.13.10 ity of [place] 4.2.7.2.686 [place] Professio [id number] [address] 2019-12-19 2019-12-19 Telephone Stan [facility] [[email or web address]] 1.2.840.114 [id number] Univers 00:00:00 00:00:00 Wondiful A Health 350.1.13.10 ity of [place] 4.2.7.2.686 [place] Professio [phone] [facility] 044 [facility][Note 2] 2019-12-14 2019-12-14 Car Park Attendant 2, Adc Lab [facility] [[email or web address]] 1.2.840.114 [id number] Univers 15:28:48 15:43:48 Visit Mele Iglesiasgladys Jonathan Mely 350.1.13. 10 it[place].2.[place] [id number] [facility] 353 [facility] 2019-12-14 2019-12-14 Office Stan [facility] [[email or web address]] 1.2.840.114 [id number] Univers 14:27:17 15:27:30 Visit Fabian A Health 350.1.13.10 ity of [place] 4.2.7.2.686 [place] Professio [phone] [facility] 044 [facility][Note 2] 2019-12-14 2019-12-14 Outpatient R STAN [facility] [id number] Univers 14:30:00 14:30:00 WONDIFUL ity o f [facility] 2019-12-14 2019-12-14 Orders Doctor KODAK 1.2.840.114 [id number] Univers 00:00:00 00:00:00 Only Unassigned, JUAN MANUEL 350.1.13.10 ity of [place] [facility] 4.2.7.2.686 [place] [id number] [facility] 009 [place] 2019-12-06 2019-12-06 Emergency [facility] [id number] Univers 00:15:42 01:15:00 Deanna Mely 350.1.13.10 i ty [place]2.[place].2.[place] [id number] [facility] 084 [place] 2019-12-06 2019-12-06 Emergency X [facility] ERT [id number] Univers 00:15:42 00:15:42 DEANNA blacky of [facility] 2019-12-06 2019-12-06 Orders Doctor CANDELARIO 1.2.840.114 [id number] Univers 00:00:00 00:00:00 Only Unassigned, JUAN MANUEL 350.1.13.10 ity of [facility] 4.2.7.2.686 [place] [phone] [facility] 009 Branch 2019-12-04 2019-12-04 Emergency Roopa Callahan [facility] [[email or web address]] 1.2.840.114 [id number] Univers 19:53:28 20:43:00 Alena Boone 350.1.13.10 i ty [place] 4[place].2.[place] [phone] [facility] 084 Branch 2019-12-04 2019-12-04 Emergency X Roopa CALLAHAN [facility] [[email or web address]] ERT [id number] Univers 19:53:28 [facility] Test Description Test Time Test Comments Results Result Comments Source POCT TEST 2023-02-01 19:56:00 Test Item Value Reference Range Interpretation Comme nts POCT PREG (test code = 1605) Negative On board controls acceptable with C Line (test code = 3574) Yes POCT PREG LOT # (test code = 3575) POCT PREG TEST DATE (test code = 3576) [facility] [id number] 19:56:00 Test Item Value Reference Range Interpretation Comments POCT PREG (test code = 1605) Negative On board controls acceptable with C Yes Line (test code = 3574) POCT PREG LOT # (test code = 3575) POCT PREG TEST DATE (test code = 3576) [facility], Serum, [id number] 18:00:00 Test Item Value Reference Range Interpretation Comments Preg Qual [Se] (test code = BSHCG) Negative Negative N Notes Date/Time Note Provider Source 2017-09-13 21:08:23-00:00 [facility] Discharge Summary PATIENT NAME: MALI TAPIA PHYSICIAN: Karen Mckeon MD Admitted: MR NUMBER: [id number] DISCHARGED: This patient is an outpatient Day Surgery patien t. ATTENDING PHYSICIAN: Fidelia Reed MD FINAL DIAGNOSIS: MIKIE 3. PROCEDURE: LEEP. DISCHARGE DIRECTIONS FOR THE PATIENT: Physical activity as tolerated. MEDICATIONS: Ibuprofen p.r.n. pain. DIET: Regular diet. FOLLOWUP CARE: With Dr. Reed in 2-4 weeks. DISPOSITION OF THE PATIENT: To be discharged home from recovery. CONDITION ON DISCHARGE: Stable. MD Fidelia Traylor MD AN/MELVA TD: 09/07/2017 00:24 CC:Fidelia Reed MD Electronically Authenticated by: Costa Mckeon MD On 09/07/2017 03:45 PM HOUSING COORDINATOR [facility] Discharge Summary PATIENT NAME: MALI TAPIA PHYSICIAN: Karen Mckeon MD Admitted: MR NUMBER: [id number] DISCHARGED: This patient is an outpatient Day Surgery patien t. ATTENDING PHYSICIAN: Fidelia Reed MD FINAL DIAGNOSIS: MIKIE 3. PROCEDURE: LEEP. DISCHARGE DIRECTIONS FOR THE PATIENT: Physical activity as tolerated. MEDICATIONS: Ibuprofen p.r.n. pain. DIET: Regular diet. FOLLOWUP CARE: With Dr. Reed in 2-4 weeks. DISPOSITION OF THE PATIENT: To be discharged home from recovery. CONDITION ON DISCHARGE: Stable. MD Fidelia Traylor MD AN/JEY TD: 09/07/2017 00:24 CC:Fidelia Reed MD Electronically Authenticated by: Costa Mckeon MD On 09/07/2017 03:45 PM HOUSING COORDINATOR Electronically Authenticated by: Fidelia Reed MD On 09/19/2017 02:58 AM CS T 2017-09-13 21:08:23-00:00 [facility] Operative Report/Procedure PATIENT NAME: MALI TAPIA PHYSICIAN: Karen Mckeon MD Admitted: MR NUMBER: [id number] DISCHARGED: DATE OF OPERATION: 09/06/2017 ATTENDING: Fidelia Reed MD RESIDENT: Costa Mckeon MD PREOPERATIVE DIAGNOSIS: Cervical intraepithelial neoplasia 3. POSTOPERATIVE DIAGNOSIS: Cervical intraepithelial neoplasia 3. PROCEDURE PERFORMED: Loop electrosurgical excision procedure. ANESTHESIA: General. IV FLUIDS: 1000 mL. ESTIMATED BLOOD LOSS: 2 mL. COMPLICATIONS: None. FINDINGS: A 2 x 2 cm cervix nonsustaining area at 5 o'cloc k, cervical cone biopsy excised. INDICATIONS: A 26-year-old G2, P2 with MIKIE 3. Risks, benefits and alternatives of the LEEP discussed with the patient and the patient agreed to the procedure. PROCEDURE: The patient was taken to the OR with IV in place . She was induced and intubated without difficulty and placed in dorsal lithotomy position. A powder spated speculum was placed into the vagina. The cervix was stained with Lugol solution. A 2% solution of li docaine with epinephrine was injected into the 4 and 8 o'clock positions usin g a 20 x 20 mm loop, a cervical cone biopsy was excised. The cone biops y was excised in 2 halves, an anterior and posterior half. The cervix was t hen cauterized using the ball electrode. Monsel solution was placed into the cervix and excellent hemostasis was noted. The speculum was removed a nd the patient was removed from stirrups and remained in stable condition u emily transfer to the recovery room. [facility] Operative Report/Procedure PATIENT NAME: MALI TAPIA PHYSICIAN: Karen Mckeon MD Admitted: MR NUMBER: [id number] DISCHARGED: DATE OF OPERATION: 09/06/2017 ATTENDING: Fidelia Reed MD RESIDENT: Costa Mckeon MD PREOPERATIVE DIAGNOSIS: Cervical intraepithelial neoplasia 3. POSTOPERATIVE DIAGNOSIS: Cervical intraepithelial neoplasia 3. PROCEDURE PERFORMED: Loop electrosurgical excision procedure. ANESTHESIA: General. IV FLUIDS: 1000 mL. ESTIMATED BLOOD LOSS: 2 mL. COMPLICATIONS: None. FINDINGS: A 2 x 2 cm cervix nonsustaining area at 5 o'cloc k, cervical cone biopsy excised. INDICATIONS: A 26-year-old G2, P2 with MIKIE 3. Risks, benefits and alternatives of the LEEP discussed with the patient and the patient agreed to the procedure. PROCEDURE: The patient was taken to the OR with IV in place . She was induced and intubated without difficulty and placed in dorsal lithotomy position. A powder spated speculum was placed into the vagina. The cervix was stained with Lugol solution. A 2% solution of li docaine with epinephrine was injected into the 4 and 8 o'clock positions usin g a 20 x 20 mm loop, a cervical cone biopsy was excised. The cone biops y was excised in 2 halves, an anterior and posterior half. The cervix was t hen cauterized using the ball electrode. Monsel solution was placed into the cervix and excellent hemostasis was noted. The speculum was removed a nd the patient was removed from stirrups and remained in stable condition u emily transfer to the recovery room. [facility] Operative Report/Procedure MD Fidelia Traylor MD AN/MIHAELA/RAMOS/UNA TD: 09/06/2017 12:47 CC:Fidelia Reed MD Edited by: Costa Mckeon MD On 09/07/2017 03:45 PM HOUSING COORDINATOR Electronically Authenticated and Edited by: Costa Mckeon MD On 09/07/2017 03:46 PM HOUSING COORDINATOR [facility] Operative Report/Procedure MD Fidelia Traylor MD AN/PAD/RAMOS/UNA TD: 09/06/2017 12:47 CC:Fidelia Reed MD Edited by: Costa Mckeon MD On 09/07/2017 03:45 PM HOUSING COORDINATOR Electronically Authenticated and Edited by: Costa Mckeon MD On 09/07/2017 03:46 PM HOUSING COORDINATOR Electronically Authenticated by: Fidelia Reed MD On 09/19/2017 02:58 AM T
[2023-02-23] MEDS ORDERED: LORazepam 2 MG/ML VIAL ONE (05:10)
[2023-02-23] MEDS ORDERED: KETOROLAC 30 MG/ML INJ ONE (05:11)
[2023-02-23] MEDS ORDERED: MORPHINE 4 MG/ML SYR ONE (05:11)
[2023-02-23] MEDS ORDERED: NA CHLORIDE 0.9% 1,000 ML ONE (05:11)
[2023-02-23] MEDS ORDERED: FAMOTIDINE 20 MG/2 ML VIAL IV ONE (05:11)
[2023-02-23] MEDS ORDERED: ONDANSETRON 4 MG/2 ML VIAL ONE (05:11)
[2023-02-23 05:52] LABS: Absolute Lymphocytes (CBC) 1.3 K/uL (0.7-4.9); Hematocrit 38.8 % (36.0-45.0); Lymphocytes % 14.6 % (15.3-44.8); MCV 95.5 fL (80-100); MPV 8.8 fL (7.6-11.3); RBC Red Blood Cell Count 4.06 M/uL (3.86-4.86)
[2023-02-23 06:05] LABS: Albumin 3.6 g/dL (3.4-5.0); Bilirubin Total 0.5 mg/dL (0.2-1.0); Potassium 3.3 mEq/L (3.5-5.1); Protein, Total 6.9 g/dL (6.4-8.2)
[2023-02-23 06:48] LABS: Specific Gravity 1.011 (1.005-1.030)
[2023-02-23 06:54] LABS: Calcium Oxalate Crystals- Ur Few /HPF (None Seen); Specific Gravity 1.011 (1.005-1.030); Urine Bacteria None Seen /HPF (<20); Urine Bilirubin NEGATIVE (Negative); Urine Blood 3+ (Negative); Urine Clarity Clear (Clear); Urine Color Light-Yellow (Yellow); Urine Glucose NEGATIVE (Negative); Urine Mucus 1+ /HPF (None Seen); Urine Protein NEGATIVE (Negative); Urine RBC <5 /HPF (None Seen); Urine Urobilinogen Normal (Normal)
--- NOTE | 2023-02-23 07:35 | RAD REPORT ---
EXAM DESCRIPTION: CT - Abdomen Pelvis W Contrast - 02/23/2023 7:20 am CLINICAL HISTORY: Abdominal pain COMPARISON: none. TECHNIQUE: Computed axial tomography of the abdomen pelvis was obtained. 100 cc Isovue-300 was admin istered intravenously. Oral contrast was not requested which limits evaluation of bowel and appendix All CT scans are performed using dose optimization technique as appropriate and may include automated exposure control or mA/KV adjustment according to patient size. FINDINGS: 11 millimeter calculus lower pole left kidney with cortical thinning. 1 centimeter calycea l diverticulum suspected upper pole left kidney. Additional areas increased density within each kidney presumably contrast within the collecting syste m. Small calculi probably less likely. Cholecystectomy Left lobe of the liver is prominent. The spleen, pancreas and adrenals are unremarkable. No evidence of diverticulitis. IUD in place. Prominent follicles within the ovaries. Small amount of free fluid Abnormal appendix is not seen IMPRESSION: Nonobstructing left renal calculus Left renal calyceal diverticulum
--- NOTE | 2023-02-23 07:50 | ER ---
Nurse's Notes [facility] Name: Opal Tapia Age: 32 yrs Sex: Female : 1990 Arrival Date: 02/23/2023 Time: 04:47 Bed 7 Private MD: Diagnosis: Crohn's disease with exacerbation, acute lower abdominal pain, acute lower UTI, unmanaged Crohn's disease Presentation: 02/23 04:49 Chief complaint: EMS states: abdominal pain, sudden onset, started about midnight, rv lower abdomen r/t RLQ, with nausea. denies fever and vomiting. Coronavirus screen: Vaccine status: Patient reports being unvaccinated. Ebola Screen: Patient negative for fever greater than or equal to 101.5 degrees Fahrenheit, and additional compatible Ebola Virus Disease symptoms Patient denies exposure to infectious person. Patient denies travel to an Ebola-affected area in the 21 days before illness onset. Initial Sepsis Screen: Does the patient meet any 2 criteria? No. Patient's initial sepsis screen is negative. Does the patient have a suspected source of infection? No. Patient's initial sepsis screen is negative. Risk Assessment: Do you want to hurt yourself or someone else? Patient reports no desire to harm self or others. Onset of symptoms was February 23, 2023. 04:49 Method Of Arrival: EMS: [facility] rv 04:49 Acuity: MER 3 rv Triage Assessment: 04:51 General: Appears uncomfortable, Behavior is calm, cooperative. Pain: Complains of pain rv in abdomen. EENT: No signs and/or symptoms were reported regarding the EENT system. Neuro: Level of Consciousness is awake, alert, obeys commands, Oriented to person, place, time, situation. Cardiovascular: Capillary refill < 3 seconds. Respiratory: Airway is patent Respiratory effort is even, unlabored. GI: Abdomen is flat, non-distended, Abdomen is tender to palpation in suprapubic area and right lower quadrant. : No signs and/or symptoms were reported regarding the genitourinary system. Derm: Skin is intact. 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 - Social history:: Smoking status: Patient denies any tobacco usage or history of. - Family history:: not pertinent. Screenin:53 [facility] ED Fall Risk Assessment (Adult) History of falling in the last 3 months, rv including since admission No falls in past 3 months (0 pts). Abuse screen: Denies threats or abuse. Denies injuries from another. Nutritional screening: No deficits noted. Tuberculosis screening: No symptoms or risk factors identified. Assessment: 07:00 Reassessment: RECD REPORT FROM JEFE MARINA. 32YO WF P/W ABD PAIN. bp 08:20 Reassessment: [facility]. bp Vital Signs: 04:49 BP 137 / 91; Pulse 83; Resp 18; Temp 98; Pulse Ox 100% ; Weight 48.53 kg; Height 5 ft. rv 0 in. ; Pain 8/10; 06:00 BP 104 / 70; Pulse 81; Resp 16; Pulse Ox 99% on R/A; ll3 04:49 Body Mass Index 20.90 (48.53 kg, 152.4 cm) rv 04:49 Pain Scale: Adult rv ED Course: 04:49 Patient arrived in ED. rv 04:51 Triage completed. rv 04:53 Jorge Strickland MD is Attending Physician. sp4 04:53 Arm band placed on right wrist. rv 04:53 Patient has correct armband on for positive identification. Client placed on continuous rv cardiac and pulse oximetry monitoring. NIBP monitoring applied. 04:57 Rj Cleveland, LAINA is Primary Nurse. rv 04:57 Inserted saline lock: 20 gauge in right antecubital area, using aseptic technique. rv Blood collected. 07:12 CT Abd/Pelvis - IV Contrast Only In Process Unspecified. EDMS 07:26 CT completed. Patient tolerated procedure well. Note: pt iv no good, discontinured and sj inserted a 20g to the lt ac. Patient moved back from CT. 07:48 Brian Crenshaw MD is Referral Physician. sp4 08:20 No provider procedures requiring assistance completed. IV discontinued, intact, bp bleeding controlled, No redness/swelling at site. Pressure dressing applied. Administered Medications: 05:09 Drug: Ativan IVP 1 mg Route: IVP; Site: right antecubital; rv 06:18 Follow up: Response: No adverse reaction; Marked relief of symptoms rv 05:09 Drug: NS 0.9% IV 1000 ml Route: IV; Rate: 1 bolus; Site: right antecubital; rv 06:18 Follow up: IV Status: Completed infusion; IV Intake: 1000ml rv 05:10 Drug: Famotidine IVP 20 mg Route: IVP; Site: right antecubital; rv 06:18 Follow up: Response: No adverse reaction; Marked relief of symptoms rv 05:10 Drug: TORadol - Ketorolac IVP 15 mg Route: IVP; Site: right antecubital; rv 06:18 Follow up: Response: No adverse reaction; Marked relief of symptoms rv 05:10 Drug: Ondansetron IVP 4 mg Route: IVP; Site: right antecubital; rv 06:18 Follow up: Response: No adverse reaction; Marked relief of symptoms rv 06:19 Not Given (Other Intervention Used): morphine IVP or IV 4 mg IVP once over 4 mins rv Medication: 04:53 VIS not applicable for this client. rv Intake: 06:18 IV: 1000ml; Total: 1000ml. rv Outcome: 07:49 Discharge ordered by MD. henson 08:20 Discharged to home ambulatory. bp 08:20 Condition: stable 08:20 Discharge instructions given to patient, Instructed on discharge instructions, follow up and referral plans. medication usage, Demonstrated understanding of instructions, follow-up care, medications, Prescriptions given X 4. 08:45 Patient left the ED. iw Signatures: Dispatcher [employer] Francy Oakley Irene, RN RN iw Gerry Sotelo RN RN bp Rj Cleveland RN RN rv Merly Nascimento RN RN ll3 Jorge Strickland MD MD sp4 Corrections: (The following items were deleted from the chart) 05:10 05:09 morphine IVP or IV 4 mg IVP in right antecubital over 4 mins rv rv
--- NOTE | 2023-02-23 07:50 | EDPHYS ---
Physician Documentation [facility] Name: Opal Tapia Age: 32 yrs Sex: Female : 1990 Arrival Date: 02/23/2023 Time: 04:47 Bed 7 Private MD: ED Physician Jorge Strickland HPI: 02/23 04:59 This 32 yrs old Female presents to ER via EMS with complaints of abdominal sp4 pain . 04:59 32-year-old female with history of anxiety, asthma, Crohn's disease, kidney stones sp4 presents with acute onset of lower abdominal pain associated with nausea. Patient visibly anxious on presentation. Pain started acutely.. 07:44 Patient apparently has history of unmanaged Crohn disease that she reports is in sp4 remission. . 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 - Social history:: Smoking status: Patient denies any tobacco usage or history of. - Family history:: not pertinent. ROS: 04:59 Constitutional: Negative for fever, chills, and weight loss, Eyes: Negative for injury, sp4 pain, redness, and discharge, ENT: Negative for injury, pain, and discharge, Neck: Negative for injury, pain, and swelling, Cardiovascular: Negative for chest pain, palpitations, and edema, Respiratory: Negative for shortness of breath, cough, wheezing, and pleuritic chest pain, Abdomen/GI: Negative for diarrhea, and constipation, positive for abdominal pain, lower abdominal pain, nausea, negative vomiting Back: Negative for injury and pain, : Negative for injury, bleeding, discharge, and swelling, MS/Extremity: Negative for injury and deformity, Skin: Negative for injury, rash, and discoloration, Neuro: Negative for headache, weakness, numbness, tingling, and seizure, Psych: Negative for depression, positive for anxiety Allergy/Immunology: Negative for hives, rash, and allergies Endocrine: Negative for neck swelling, polydipsia, polyuria, polyphagia, and weight changes Hematologic/Lymphatic: Negative for swollen nodes, abnormal bleeding, and unusual bruising Exam: 04:59 Constitutional: This is a well developed, well nourished patient who is awake, alert, sp4 visible anxiety on exam Head/Face: Normocephalic, atraumatic. Eyes: Pupils equal round and reactive to light, extra-ocular motions intact. Lids and lashes normal. Conjunctiva and sclera are not injected. Cornea within normal limits. Periorbital areas with no swelling, redness, or edema. ENT: Nares patent. No nasal discharge, no septal abnormalities noted. Tympanic membranes are normal and external auditory canals are clear. Oropharynx with no redness, swelling, or masses, exudates, or evidence of obstruction, uvula midline. Mucous membranes moist. Neck: Trachea midline, no thyromegaly or masses palpated, and no cervical lymphadenopathy. Supple, full range of motion without nuchal rigidity, or vertebral point tenderness. No Meningismus. Chest/axilla: Normal chest wall appearance and motion. Nontender with no deformity. No lesions are appreciated. Cardiovascular: Regular rate and rhythm with a normal S1 and S2. No gallops, murmurs, or rubs. Normal PMI, no JVD. No pulse deficits. Respiratory: Lungs have equal breath sounds bilaterally, clear to auscultation and percussion. No rales, rhonchi or wheezes noted. No increased work of breathing, no retractions or nasal flaring. Abdomen/GI: Soft, diffuse abdominal tenderness, scars from prior cholecystectomy, negative rebound, negative distention, negative rigidity, normoactive bowel sounds Back: No spinal tenderness. No costovertebral tenderness. Skin: Warm, dry with normal turgor. Normal color with no rashes, no lesions, and no evidence of cellulitis. MS/ Extremity: Pulses equal, no cyanosis. Neurovascular intact. Full, normal range of motion. Neuro: Awake and alert, GCS 15, oriented to person, place, time, and situation. Cranial nerves II-XII grossly intact. Motor strength 5/5 in all extremities. Sensory grossly intact. Psych: Awake, alert, with orientation to person, place and time. Behavior, mood, and affect are within normal limits Vital Signs: 04:49 BP 137 / 91; Pulse 83; Resp 18; Temp 98; Pulse Ox 100% ; Weight 48.53 kg; Height 5 ft. rv 0 in. ; Pain 8/10; 06:00 BP 104 / 70; Pulse 81; Resp 16; Pulse Ox 99% on R/A; ll3 04:49 Body Mass Index 20.90 (48.53 kg, 152.4 cm) rv 04:49 Pain Scale: Adult rv MDM: 05:11 Patient medically screened. sp4 07:44 Differential Diagnosis sepsis, Gastroenteritis, exacerbation of Crohn's disease, sp4 diverticulitis,. Data reviewed: vital signs, nurses notes, EMS record, old medical records, lab test result(s), Beta HCG: CBC, electrolytes, hepatic panel, urinalysis, radiologic studies, CT scan. Consideration of Admission/Observation Escalation of care including admission/observation considered. ED course: CT has revealed nonobstructive left renal calculus, left renal calyceal diverticulum, IUD in place, cholecystectomy, no evidence of diverticulitis, no signs of appendicitis, unremarkable spleen pancreas. Small amount of free pelvic fluid. Otherwise unremarkable CT Labs revealed mild elevation of glucose 132 negative test, mild UTI positive leukocyte esterase. Patient will be referred to local inserting operator for management of her Crohn's disease, will advise prednisone once a day for the next 10 days in case there is acute Crohn's flareup.. Patient stable for discharge home. . ED course: We will provide prescription for prednisone once a day for 10 days, tramadol as needed pain, ibuprofen as needed pain, Zofran as needed nausea, and also Macrobid for UTI.. 02/23 04:58 Order name: CBC with Diff; Complete Time: 07:34 sp4 02/23 04:58 Order name: CMP; Complete Time: 07:34 sp4 02/23 04:58 Order name: Lipase; Complete Time: 07:34 sp4 02/23 04:58 Order name: Test, Urine; Complete Time: 07:34 sp4 02/23 04:58 Order name: Urinalysis w/ reflexes; Complete Time: 07:34 sp4 02/23 04:58 Order name: CT Abd/Pelvis - IV Contrast Only sp4 02/23 04:58 Order name: IV Saline Lock; Complete Time: 04:59 sp4 02/23 04:58 Order name: Labs collected and sent; Complete Time: 04:59 sp4 02/23 05:20 Order name: [facility] [place]. Order: recollect green and purple; Complete Time: : kd3 Administered Medications: 05:09 Drug: Ativan IVP 1 mg Route: IVP; Site: right antecubital; rv 06:18 Follow up: Response: No adverse reaction; Marked relief of symptoms rv 05:09 Drug: NS 0.9% IV 1000 ml Route: IV; Rate: 1 bolus; Site: right antecubital; rv 06:18 Follow up: IV Status: Completed infusion; IV Intake: 1000ml rv 05:10 Drug: Famotidine IVP 20 mg Route: IVP; Site: right antecubital; rv 06:18 Follow up: Response: No adverse reaction; Marked relief of symptoms rv 05:10 Drug: TORadol - Ketorolac IVP 15 mg Route: IVP; Site: right antecubital; rv 06:18 Follow up: Response: No adverse reaction; Marked relief of symptoms rv 05:10 Drug: Ondansetron IVP 4 mg Route: IVP; Site: right antecubital; rv 06:18 Follow up: Response: No adverse reaction; Marked relief of symptoms rv 06:19 Not Given (Other Intervention Used): morphine IVP or IV 4 mg IVP once over 4 mins rv Disposition Summary: 02/23/23 07:49 Discharge Ordered Location: Home sp4 Problem: new sp4 Symptoms: have improved sp4 Condition: Stable sp4 Diagnosis - Crohn's disease with exacerbation, acute lower abdominal pain, acute lower UTI, sp4 unmanaged Crohn's disease Followup: sp4 - With: Brian Crenshaw MD - When: 7 - 10 days - Reason: Recheck today's complaints Discharge Instructions: - Discharge Summary Sheet sp4 - Crohn's Disease sp4 Forms: - Antibiotic Education sp4 Prescriptions: - Ibuprofen 600 mg Oral Tablet - take 1 tablet by ORAL route every 6 hours As needed take with food; 30 tablet; sp4 Refills: 0, Product Selection Permitted - Prednisone 20 mg Oral Tablet - take 1 tablet by ORAL route once daily for 10 days; 10 tablet; Refills: 0, sp4 Product Selection Permitted - Zofran 4 mg Oral Tablet - take 1 tablet by ORAL route every 6 hours As needed; 30 tablet; Refills: 0, sp4 Product Selection Permitted - Macrobid 100 mg Oral Capsule - take 1 capsule by ORAL route every 12 hours for 10 days; 20 capsule; Refills: sp4 0, Product Selection Permitted Signatures: Dispatcher [employer] Rj Jeffries, RN RN rv Lis Logan RN RN kd3 Jorge Strickland MD MD sp4
[2023-02-23 09:49] VITALS: TEMP 98
[2023-02-23 09:51] VITALS: BP 104/70; O2SAT 99
== END 2023-02-23 08:45 | disposition home or self-care (01) ==
LOC: ER 04:47
DX: K50.90 Crohn's disease, unspecified, without complications (principal); N39.0 Urinary tract infection, site not specified; Z88.5 Allergy status to narcotic agent
CPT/HCPCS: 96361; 85025; 81001; 36415; 81025; 83690; 80053; 74177; 96375; 96374; 99285; Q9967; J2405; J7030

== ENCOUNTER → 2023-09-19 | Emergency (ER) | payer OTHER ==
[~2023-09-19] MED LIST: CLINDAMYCIN 600MG/D5W 50 ML IV ONE; KETOROLAC 30 MG/ML INJ ONE; ONDANSETRON 4 MG/2 ML VIAL ONE
--- OUTSIDE RECORDS SUMMARY | 2023-09-19 14:13 | XMS REPORT | Continuity of Care Document ---
Author Name Unknown Address [address] [facility] [address] [place] [address] [facility] [address] [facility] [address] [place] [address] Care Team Providers Care Sight Mounter Name Role Phone PCP, PATIENT DOES NOT HAVE A Primary Care Physic feli Unavailable JORGE LUNSFORD Attending Clinician Unavailable DHEERAJ CONSTANTINO Attending Clinician Unavailable DHEERAJ CONSTANTINO Attending Clinician Unavailable LUC CHARLES Attending Clinician UnavailLUC Parrish Attending Clinician Unavailmichelle XIAO KANIKA Attending Clinician Unavailable Doctor Unassigned, [place] Attending Clinician U FELTON Welsh Attending Clinician Unavailable Filomena Diaz Attending Clinician [phone] Jorge Lunsford MD Attending Clinician [phone] FABIAN IGLESIAS Attending Clinician UnavailFabian Youssef MD Attending Clinician [phone] Pcp, Patient Does Not Have A Attending Clinician 2, [facility] Attending Clinician Unavailable Deanna White MD Attending Clinician [phone] DEANNA WHITE Attending Clinician Unavailable Roopa Holt Attending Clinician [phone] Roopa CALLAHAN Attending Clinician Unavailable JORGE LUNSFORD Admitting Clinician Unavailable Payers Payer Name Policy Type Policy Number Effective Date Expirati on Date Source [facility] [id number] 2019 00:00:00 Problems Condition Name Condition Details Condition Category Status Onset Date Resolution Date Last Treatment Date Treating Clinician Comments Source Encounter for IUD removal and reinsertio n Encounter for IUD removal and reinsertio n Disease Active 5-09 00:00: 00 [facility] Galactorrh ea Galactorrh ea Disease Active 12-04 00:00: 00 [facility] Presence of intrauteri ne contracept lb device Presence of intrauteri ne contracept lb device Disease Active 12-04 00:00: 00 [facility] History of depression History of depression Disease Active 12-04 00:00: 00 [facility] Nausea and vomiting, unspecifie d vomiting type Nausea and vomiting, unspecifie d vomiting type Disease Active 12-04 00:00: 00 [facility] Decreased appetite Decreased appetite Disease Active 12-04 00:00: 00 [facility] Decreased heart rate Decreased heart rate Disease Active 12-04 00:00: 00 [facility] Dizziness and giddiness Dizziness and giddiness Disease Active 12-04 00:00: 00 [facility] Heart palpitatio ns Heart palpitatio ns Disease Active 12-04 00:00: 00 [facility] Weight loss Weight loss Disease Active 02-26 00:00: 00 Overview: Formattin g of this note might be different from the original. Added automatic ally from request for surgery [id number] [facility] IBD (inflammat ory bowel disease) IBD (inflammat ory bowel disease) Disease Active 02-26 00:00: 00 Overview: Formattin g of this note might be different from the original. Added automatic ally from request for surgery [id number] [facility] B12 deficiency B12 deficiency Disease Active 12-18 00:00: 00 [facility] Folate deficiency Folate deficiency Disease Active 12-18 00:00: 00 [facility] Elevated serum protein level Elevated serum protein level Disease Active 12-18 00:00: 00 [facility] Fatigue, unspecifie d type Fatigue, unspecifie d type Disease Active 12-15 00:00: 00 [facility] Normal labor Normal labor Disease Active 09-26 00:00: 00 [facility] Threatened labor at term Threatened labor at term Disease Active 2015-09 00:00: 00 [facility] uterine contractio ns in third trimester, antepartum uterine contractio ns in third trimester, antepartum Disease Active 2015-09 00:00: 00 [facility] No known active problems No known active problems Disease [facility] Chronic bronchitis Chronic bronchitis Disease Active [facility] Crohn disease Crohn disease Disease Active [facility] Asthma Asthma Disease Active [facility] Allergic rhinitis Allergic rhinitis Disease Active [facility] Allergies, Adverse Reactions, Alerts Allergy Name Allergy Type Status Severity Reaction(s) Onset Date Inactive Date Treating Clinician Comments Source TRAMADOL DRUG INGREDI Active High N/V 12-13 00:00: 00 [facility] Tramadol Propensi ty to adverse reaction s Active Nausea and/or Vomiting 12-13 00:00: 00 [facility] NO KNOWN ALLERGIE S Drug Class Active [facility] Social History Social Habit Start Date Stop Date Quantity Comments Source History of tobacco use Smokes tobacco daily [facility] Exposure to SARS-CoV-2 (event) 2023-01-22 00:00:00 2023-02-01 14:46:00 Not sure [facility] Alcohol intake 2023-02-01 00:00:00 2023-02-01 00:00:00 Ex-drinker (finding) [facility] Tobacco use and exposure 2022-12-03 00:00:00 2022-12-03 00:00:00 Smokeless tobacco non-user [facility] Tobacco Comment 2019-12-14 00:00:00 2019-12-14 00:00:00 vaping [facility] Sex Assigned At 1990 00:00:00 1990 00:00:00 [facility] Smoking Status Start Date Stop Date Source Unknown if ever smoked Unive [facility] Never smoked tobacco [facility] Smokes tobacco daily 2019-12-14 00:00:00 [facility] Medications Ordered Medication Name Filled Medication Name Start Date Stop Date Current Medication? Ordering Clinician Indication Dosage Frequency Signature (SIG) Comments Components Source levonorgest reL (KYLEENA) IUD 1 Device 02-01 21:15: 00 02-01 20:18 :00 No [id number] 1{devic e} [facility] levonorgest reL (KYLEENA) IUD 1 Device 02-01 21:15: 00 02-01 20:18 :00 No [id number] 1{devic e} 1 Device, Intrauteri ne, ONCE, 1 dose, On Tue02/01/23 at 1615, Routine [facility] levonorgest reL (KYLEENA) IUD 1 Device 02-01 21:15: 00 02-01 20:18 :00 No [id number] 1{devic e} [facility] levonorgest reL (KYLEENA) IUD 1 Device 02-01 21:15: 00 02-01 20:18 :00 No [id number] 1{devic e} 1 Device, Intrauteri ne, ONCE, 1 dose, On Tue02/01/23 at 1615, Routine [facility] proMETHazin e 12.5 mg tablet 02-01 00:00: 00 Yes [id number] 12.5mg Take 1 tablet by mouth every 4 (four) hours as needed for Nausea and Vomiting (N/V). [facility] proMETHazin e 12.5 mg tablet 02-01 00:00: 00 Yes [id number] 12.5mg Take 1 tablet by mouth every 4 (four) hours as needed for Nausea and Vomiting (N/V). [facility] proMETHazin e 12.5 mg tablet 02-01 00:00: 00 Yes [id number] 12.5mg Take 1 tablet by mouth every 4 (four) hours as needed for Nausea and Vomiting (N/V). [facility] proMETHazin e 12.5 mg tablet 02-01 00:00: 00 Yes [id number] 12.5mg Take 1 tablet by mouth every 4 (four) hours as needed for Nausea and Vomiting (N/V). [facility] proMETHazin e 12.5 mg tablet 12-04 00:00: 00 Yes [id number] 12.5mg Take 1 tablet by mouth every 4 (four) hours as needed for Nausea and Vomiting (N/V). [facility] proMETHazin e 12.5 mg tablet 12-04 00:00: 00 Yes [id number] 12.5mg Take 1 tablet by mouth every 4 (four) hours as needed for Nausea and Vomiting (N/V). [facility] proMETHazin e 12.5 mg tablet 12-04 00:00: 00 Yes [id number] 12.5mg Take 1 tablet by mouth every 4 (four) hours as needed for Nausea and Vomiting (N/V). [facility] proMETHazin e 12.5 mg tablet 12-04 00:00: 00 02-01 00:00 :00 No [id number] 12.5mg Take 1 tablet by mouth every 4 (four) hours as needed for Nausea and Vomiting (N/V). [facility] proMETHazin e 12.5 mg tablet 12-04 00:00: 00 02-01 00:00 :00 No [id number] 12.5mg Take 1 tablet by mouth every 4 (four) hours as needed for Nausea and Vomiting (N/V). [facility] LORazepam (ATIVAN) tablet 0.5 mg 02-24 08:30: 00 02-24 07:28 :00 No .5mg 0.5 mg, Oral, ONCE, 1 dose, Tue02/24/21 at 0330, EDUARDO [facility] peg-electro lyte soln 236-22.74-6 .74 -5.86 gram solution 02-25 00:00: 00 Yes [id number] 4000mL Take 4,000 mL by mouth SEE-INSTRU CTIONS. Take as directed [facility] peg-electro lyte soln 236-22.74-6 .74 -5.86 gram solution 02-25 00:00: 00 Yes [id number] 4000mL Take 4,000 mL by mouth SEE-INSTRU CTIONS. Take as directed [facility] peg-electro lyte soln 236-22.74-6 .74 -5.86 gram solution 02-25 00:00: 00 Yes [id number] 4000mL Take 4,000 mL by mouth SEE-INSTRU CTIONS. Take as directed [facility] peg-electro lyte soln 236-22.74-6 .74 -5.86 gram solution 02-25 00:00: 00 Yes [id number] 4000mL Take 4,000 mL by mouth SEE-INSTRU CTIONS. Take as directed [facility] peg-electro lyte soln 236-22.74-6 .74 -5.86 gram solution 02-25 00:00: 00 Yes [id number] 4000mL Take 4,000 mL by mouth SEE-INSTRU CTIONS. Take as directed [facility] peg-electro lyte soln 236-22.74-6 .74 -5.86 gram solution 02-25 00:00: 00 Yes [id number] 4000mL Take 4,000 mL by mouth SEE-INSTRU CTIONS. Take as directed [facility] peg-electro lyte soln 236-22.74-6 .74 -5.86 gram solution 02-25 00:00: 00 Yes [id number] 4000mL Take 4,000 mL by mouth SEE-INSTRU CTIONS. Take as directed [facility] peg-electro lyte soln 236-22.74-6 .74 -5.86 gram solution 02-25 00:00: 00 Yes [id number] 4000mL Take 4,000 mL by mouth SEE-INSTRU CTIONS. Take as directed [facility] peg-electro lyte soln 236-22.74-6 .74 -5.86 gram solution 02-25 00:00: 00 Yes [id number] 4000mL Take 4,000 mL by mouth SEE-INSTRU CTIONS. Take as directed [facility] peg-electro lyte soln 236-22.74-6 .74 -5.86 gram solution 2019-0 6 00:00: 00 Yes [id number] 4000mL Take 4,000 mL by mouth SEE-INSTRU CTIONS. Take as directed [facility] peg-electro lyte soln 236-22.74-6 .74 -5.86 gram solution 2019-0 6 00:00: 00 Yes [id number] 4000mL Take 4,000 mL by mouth SEE-INSTRU CTIONS. Take as directed [facility] ondansetron HCl (ZOFRAN ORAL) 0 10 21:49: 37 01-03 00:00 :00 No Take by mouth. [facility] ondansetron 4 mg tablet 0 -10 00:00: 00 Yes [id number] 4mg Take 1 tablet by mouth every 8 (eight) hours as needed for Nausea and Vomiting (N/V). [facility] ondansetron 4 mg tablet 2019-0 -10 00:00: 00 Yes [id number] 4mg Take 1 tablet by mouth every 8 (eight) hours as needed for Nausea and Vomiting (N/V). [facility] ondansetron 4 mg tablet 2019-0 -10 00:00: 00 Yes [id number] 4mg Take 1 tablet by mouth every 8 (eight) hours as needed for Nausea and Vomiting (N/V). [facility] ondansetron 4 mg tablet 2019-0 4-10 00:00: 00 Yes [id number] 4mg Take 1 tablet by mouth every 8 (eight) hours as needed for Nausea and Vomiting (N/V). [facility] ondansetron 4 mg tablet 2019-0 4-10 00:00: 00 Yes [id number] 4mg Take 1 tablet by mouth every 8 (eight) hours as needed for Nausea and Vomiting (N/V). [facility] ondansetron 4 mg tablet 2019-0 4-10 00:00: 00 Yes [id number] 4mg Take 1 tablet by mouth every 8 (eight) hours as needed for Nausea and Vomiting (N/V). [facility] ondansetron 4 mg tablet 2020-0 4-10 00:00: 00 Yes [id number] 4mg Take 1 tablet by mouth every 8 (eight) hours as needed for Nausea and Vomiting (N/V). [facility] ondansetron 4 mg tablet 2020-0 4-10 00:00: 00 Yes [id number] 4mg Take 1 tablet by mouth every 8 (eight) hours as needed for Nausea and Vomiting (N/V). [facility] ondansetron 4 mg tablet 2020-0 4-10 00:00: 00 Yes [id number] 4mg Take 1 tablet by mouth every 8 (eight) hours as needed for Nausea and Vomiting (N/V). [facility] ondansetron 4 mg tablet 2020-0 4-10 00:00: 00 Yes [id number] 4mg Take 1 tablet by mouth every 8 (eight) hours as needed for Nausea and Vomiting (N/V). [facility] ondansetron 4 mg tablet 2020-0 4-10 00:00: 00 Yes [id number] 4mg Take 1 tablet by mouth every 8 (eight) hours as needed for Nausea and Vomiting (N/V). [facility] ondansetron 4 mg tablet 2020-0 4-10 00:00: 00 Yes [id number] 4mg Take 1 tablet by mouth every 8 (eight) hours as needed for Nausea and Vomiting (N/V). [facility] ondansetron 4 mg tablet 2020-0 4-10 00:00: 00 Yes [id number] 4mg Take 1 tablet by mouth every 8 (eight) hours as needed for Nausea and Vomiting (N/V). [facility] vitamin B-12 1,000 mcg tablet 2020-0 3-25 00:00: 00 Yes [id number] 1000ug Take 1 tablet by mouth daily. [facility] foLIC acid 1 mg tablet 2020-0 3-25 00:00: 00 Yes [id number] 1mg Take 1 tablet by mouth daily. [facility] vitamin B-12 1,000 mcg tablet 2020-0 3-25 00:00: 00 Yes [id number] 1000ug Take 1 tablet by mouth daily. [facility] foLIC acid 1 mg tablet 2020-0 3-25 00:00: 00 Yes [id number] 1mg Take 1 tablet by mouth daily. [facility] vitamin B-12 1,000 mcg tablet 2020-0 3-25 00:00: 00 Yes [id number] 1000ug Take 1 tablet by mouth daily. [facility] foLIC acid 1 mg tablet 2020-0 3-25 00:00: 00 Yes [id number] 1mg Take 1 tablet by mouth daily. [facility] vitamin B-12 1,000 mcg tablet 2020-0 3-25 00:00: 00 Yes [id number] 1000ug Take 1 tablet by mouth daily. [facility] foLIC acid 1 mg tablet 2020-0 3-25 00:00: 00 Yes [id number] 1mg Take 1 tablet by mouth daily. [facility] vitamin B-12 1,000 mcg tablet 2020-0 3-25 00:00: 00 Yes [id number] 1000ug Take 1 tablet by mouth daily. [facility] foLIC acid 1 mg tablet 2020-0 3-25 00:00: 00 Yes [id number] 1mg Take 1 tablet by mouth daily. [facility] vitamin B-12 1,000 mcg tablet 2020-0 3-25 00:00: 00 Yes [id number] 1000ug Take 1 tablet by mouth daily. [facility] foLIC acid 1 mg tablet 2020-0 3-25 00:00: 00 Yes [id number] 1mg Take 1 tablet by mouth daily. [facility] vitamin B-12 1,000 mcg tablet 2020-0 3-25 00:00: 00 Yes [id number] 1000ug Take 1 tablet by mouth daily. [facility] foLIC acid 1 mg tablet 2020-0 3-25 00:00: 00 Yes [id number] 1mg Take 1 tablet by mouth daily. [facility] vitamin B-12 1,000 mcg tablet 2020-0 3-25 00:00: 00 Yes [id number] 1000ug Take 1 tablet by mouth daily. [facility] foLIC acid 1 mg tablet 2020-0 3-25 00:00: 00 Yes [id number] 1mg Take 1 tablet by mouth daily. [facility] vitamin B-12 1,000 mcg tablet 2020-0 3-25 00:00: 00 Yes [id number] 1000ug Take 1 tablet by mouth daily. [facility] foLIC acid 1 mg tablet 2020-0 3-25 00:00: 00 Yes [id number] 1mg Take 1 tablet by mouth daily. [facility] vitamin B-12 1,000 mcg tablet 2020-0 3-25 00:00: 00 Yes [id number] 1000ug Take 1 tablet by mouth daily. [facility] foLIC acid 1 mg tablet 2020-0 3-25 00:00: 00 Yes [id number] 1mg Take 1 tablet by mouth daily. [facility] vitamin B-12 1,000 mcg tablet 2020-0 3-25 00:00: 00 Yes [id number] 1000ug Take 1 tablet by mouth daily. [facility] foLIC acid 1 mg tablet 2020-0 3-25 00:00: 00 Yes [id number] 1mg Take 1 tablet by mouth daily. [facility] vitamin B-12 1,000 mcg tablet 2020-0 3-25 00:00: 00 Yes [id number] 1000ug Take 1 tablet by mouth daily. [facility] foLIC acid 1 mg tablet 2020-0 3-25 00:00: 00 Yes [id number] 1mg Take 1 tablet by mouth daily. [facility] vitamin B-12 1,000 mcg tablet 2020-0 3-25 00:00: 00 Yes [id number] 1000ug Take 1 tablet by mouth daily. [facility] foLIC acid 1 mg tablet 2020-0 3-25 00:00: 00 Yes [id number] 1mg Take 1 tablet by mouth daily. [facility] vitamin B-12 1,000 mcg tablet 2020-0 3-25 00:00: 00 Yes [id number] 1000ug Take 1 tablet by mouth daily. [facility] foLIC acid 1 mg tablet 2020-0 3-25 00:00: 00 Yes [id number] 1mg Take 1 tablet by mouth daily. [facility] vitamin B-12 1,000 mcg tablet 2020-0 3-25 00:00: 00 Yes [id number] 1000ug Take 1 tablet by mouth daily. [facility] foLIC acid 1 mg tablet 12-18 00:00: 00 Yes [id number] 1mg Take 1 tablet by mouth daily. [facility] sulfamethox azole/trime thoprim (SMZ-TMP DS ORAL) 12-13 20:21: 36 12-13 00:00 :00 No Take by mouth. [facility] sulfamethox azole/trime thoprim (SMZ-TMP DS ORAL) 12-13 20:21: 36 12-13 00:00 :00 No Take by mouth. [facility] ondansetron HCl (ZOFRAN ORAL) 12-13 19:46: 17 Yes Take by mouth. [facility] ondansetron HCl (ZOFRAN ORAL) 12-13 19:46: 17 Yes Take by mouth. [facility] ondansetron HCl (ZOFRAN ORAL) 12-13 19:46: 17 Yes Take by mouth. [facility] ondansetron HCl (ZOFRAN ORAL) 12-13 19:46: 17 Yes Take by mouth. [facility] ondansetron HCl (ZOFRAN ORAL) 12-13 19:46: 17 Yes Take by mouth. [facility] albuterol 90 mcg/actuati on inhaler 12-13 00:00: 00 Yes [id number] 2{puff} Inhale 2 Puffs every 6 (six) hours as needed for Wheezing or Shortness of Breath. [facility] albuterol 90 mcg/actuati on inhaler 12-13 00:00: 00 Yes [id number] 2{puff} Inhale 2 Puffs every 6 (six) hours as needed for Wheezing or Shortness of Breath. [facility] albuterol 90 mcg/actuati on inhaler 12-13 00:00: 00 Yes [id number] 2{puff} Inhale 2 Puffs every 6 (six) hours as needed for Wheezing or Shortness of Breath. [facility] albuterol 90 mcg/actuati on inhaler 2020-0 3-20 00:00: 00 Yes [id number] 2{puff} Inhale 2 Puffs every 6 (six) hours as needed for Wheezing or Shortness of Breath. [facility] albuterol 90 mcg/actuati on inhaler 2020-0 3-20 00:00: 00 Yes [id number] 2{puff} Inhale 2 Puffs every 6 (six) hours as needed for Wheezing or Shortness of Breath. [facility] albuterol 90 mcg/actuati on inhaler 2020-0 3-20 00:00: 00 Yes [id number] 2{puff} Inhale 2 Puffs every 6 (six) hours as needed for Wheezing or Shortness of Breath. [facility] albuterol 90 mcg/actuati on inhaler 20200 3-20 00:00: 00 Yes [id number] 2{puff} Inhale 2 Puffs every 6 (six) hours as needed for Wheezing or Shortness of Breath. [facility] albuterol 90 mcg/actuati on inhaler 20200 3-20 00:00: 00 Yes [id number] 2{puff} Inhale 2 Puffs every 6 (six) hours as needed for Wheezing or Shortness of Breath. [facility] albuterol 90 mcg/actuati on inhaler 20200 3-20 00:00: 00 Yes [id number] 2{puff} Inhale 2 Puffs every 6 (six) hours as needed for Wheezing or Shortness of Breath. [facility] albuterol 90 mcg/actuati on inhaler 20200 3-20 00:00: 00 Yes [id number] 2{puff} Inhale 2 Puffs every 6 (six) hours as needed for Wheezing or Shortness of Breath. [facility] albuterol 90 mcg/actuati on inhaler 2020-0 3-20 00:00: 00 Yes [id number] 2{puff} Inhale 2 Puffs every 6 (six) hours as needed for Wheezing or Shortness of Breath. [facility] albuterol 90 mcg/actuati on inhaler 2020-0 3-20 00:00: 00 Yes [id number] 2{puff} Inhale 2 Puffs every 6 (six) hours as needed for Wheezing or Shortness of Breath. [facility] albuterol 90 mcg/actuati on inhaler 12-13 00:00: 00 Yes [id number] 2{puff} Inhale 2 Puffs every 6 (six) hours as needed for Wheezing or Shortness of Breath. [facility] albuterol 90 mcg/actuati on inhaler 12-13 00:00: 00 Yes [id number] 2{puff} Inhale 2 Puffs every 6 (six) hours as needed for Wheezing or Shortness of Breath. [facility] albuterol 90 mcg/actuati on inhaler 12-13 00:00: 00 Yes [id number] 2{puff} Inhale 2 Puffs every 6 (six) hours as needed for Wheezing or Shortness of Breath. [facility] albuterol 90 mcg/actuati on inhaler 12-13 00:00: 00 Yes [id number] 2{puff} Inhale 2 Puffs every 6 (six) hours as needed for Wheezing or Shortness of Breath. [facility] albuterol 90 mcg/actuati on inhaler 12-13 00:00: 00 Yes [id number] 2{puff} Inhale 2 Puffs every 6 (six) hours as needed for Wheezing or Shortness of Breath. [facility] albuterol 90 mcg/actuati on inhaler 12-13 00:00: 00 Yes [id number] 2{puff} Inhale 2 Puffs every 6 (six) hours as needed for Wheezing or Shortness of Breath. [facility] sulfamethox azole-trime thoprim (BACTRIM DS) 800-160 mg per tablet 12-13 00:00: 00 12-18 04:59 :00 No [id number] 1{tbl} Take 1 tablet by mouth 2 (two) times daily for 4 days. [facility] sulfamethox azole-trime thoprim (BACTRIM DS) 800-160 mg per tablet 12-13 00:00: 00 12-18 04:59 :00 No [id number] 1{tbl} Take 1 tablet by mouth 2 (two) times daily for 4 days. [facility] sulfamethox azole-trime thoprim (BACTRIM DS) 800-160 mg per tablet 12-13 00:00: 00 12-18 04:59 :00 No [id number] 1{tbl} Take 1 tablet by mouth 2 (two) times daily for 4 days. [facility] fluconazole 150 mg tablet 12-13 00:00: 00 12-14 04:59 :00 No [id number] 150mg Take 1 tablet by mouth once now for 1 dose. May repeat in 3-4 days. [facility] fluconazole 150 mg tablet 12-13 00:00: 12-14 04:59 :00 No [id number] 150mg Take 1 tablet by mouth once now for 1 dose. May repeat in 3-4 days. [facility] fluconazole 150 mg tablet 12-13 00:00: 12-14 04:59 :00 No [id number] 150mg Take 1 tablet by mouth once now for 1 dose. May repeat in 3-4 days. [facility] ondansetron 4 mg tablet 12-08 00:00: 01-03 00:00 :00 No 1{tbl} Take 1 tablet by mouth every 8 (eight) hours as needed for Nausea. [facility] traMADol (ULTRAM) tablet 50 mg 12-05 07:00: 00 12-05 05:54 :00 No 50mg 50 mg, Oral, ONCE, 1 dose, Yesenia 12/06/19 at 0200, Routine [facility] cephALEXin (KEFLEX) capsule 500 mg 12-05 06:45: 00 12-05 05:52 :00 No 500mg 500 mg, Oral, ONCE, 1 dose, Yesenia 12/06/19 at 0145, EDUARDO
Re ason for Anti-Infec tive: Documented Infection< br>Documen alexia Infection Site: Skin / Soft Tissue
Duration of Therapy: Other (see Comments) [facility] mupirocin 2 % ointment 2020-0 3-10 00:00: 00 Yes [id number] Apply to area(s) 3 (three) times daily. [facility] mupirocin 2 % ointment 2020-0 3-10 00:00: 00 Yes [id number] Apply to area(s) 3 (three) times daily. [facility] mupirocin 2 % ointment 2020-0 3-10 00:00: 00 Yes [id number] Apply to area(s) 3 (three) times daily. [facility] mupirocin 2 % ointment 2020-0 3-10 00:00: 00 Yes [id number] Apply to area(s) 3 (three) times daily. [facility] mupirocin 2 % ointment 2020-0 3-10 00:00: 00 Yes [id number] Apply to area(s) 3 (three) times daily. [facility] mupirocin 2 % ointment 2020-0 3-10 00:00: 00 Yes [id number] Apply to area(s) 3 (three) times daily. [facility] mupirocin 2 % ointment 2020-0 3-10 00:00: 00 Yes [id number] Apply to area(s) 3 (three) times daily. [facility] mupirocin 2 % ointment 2020-0 3-10 00:00: 00 Yes [id number] Apply to area(s) 3 (three) times daily. [facility] mupirocin 2 % ointment 2020-0 3-10 00:00: 00 Yes [id number] Apply to area(s) 3 (three) times daily. [facility] mupirocin 2 % ointment 2020-0 3-10 00:00: 00 Yes [id number] Apply to area(s) 3 (three) times daily. [facility] mupirocin 2 % ointment 2020-0 3-10 00:00: 00 Yes [id number] Apply to area(s) 3 (three) times daily. [facility] mupirocin 2 % ointment 2020-0 3-10 00:00: 00 Yes [id number] Apply to area(s) 3 (three) times daily. [facility] mupirocin 2 % ointment 2020-0 3-10 00:00: 00 Yes [id number] Apply to area(s) 3 (three) times daily. [facility] mupirocin 2 % ointment 2020-0 3-10 00:00: 00 Yes [id number] Apply to area(s) 3 (three) times daily. [facility] mupirocin 2 % ointment 2020-0 3-10 00:00: 00 Yes [id number] Apply to area(s) 3 (three) times daily. [facility] mupirocin 2 % ointment 2020-0 3-10 00:00: 00 Yes [id number] Apply to area(s) 3 (three) times daily. [facility] mupirocin 2 % ointment 2020-0 3-10 00:00: 00 Yes [id number] Apply to area(s) 3 (three) times daily. [facility] mupirocin 2 % ointment 2020-0 3-10 00:00: 00 Yes [id number] Apply to area(s) 3 (three) times daily. [facility] mupirocin 2 % ointment 2020-0 3-10 00:00: 00 Yes [id number] Apply to area(s) 3 (three) times daily. [facility] mupirocin 2 % ointment 2020-0 3-10 00:00: 00 Yes [id number] Apply to area(s) 3 (three) times daily. [facility] mupirocin 2 % ointment 2020-0 3-10 00:00: 00 Yes [id number] Apply to area(s) 3 (three) times daily. [facility] mupirocin 2 % ointment 2020-0 3-10 00:00: 00 Yes [id number] Apply to area(s) 3 (three) times daily. [facility] cephALEXin (KEFLEX) 500 mg capsule 3-10 00:00: 12-14 04:59 :00 No [id number] 500mg Take 1 capsule by mouth 3 (three) times daily for 10 days. [facility] cephALEXin (KEFLEX) 500 mg capsule 3-10 00:00: 12-14 04:59 :00 No [id number] 500mg Take 1 capsule by mouth 3 (three) times daily for 10 days. [facility] cephALEXin (KEFLEX) 500 mg capsule 3 00:00: 12-14 04:59 :00 No [id number] 500mg Take 1 capsule by mouth 3 (three) times daily for 10 days. [facility] cephALEXin (KEFLEX) 500 mg capsule 3 00:00: 12-14 04:59 :00 No [id number] 500mg Take 1 capsule by mouth 3 (three) times daily for 10 days. [facility] cephALEXin (KEFLEX) 500 mg capsule 3 00:00: 12-13 00:00 :00 No [id number] 500mg Take 1 capsule by mouth 3 (three) times daily for 10 days. [facility] cephALEXin (KEFLEX) 500 mg capsule 3 00:00: 12-13 00:00 :00 No [id number] 500mg Take 1 capsule by mouth 3 (three) times daily for 10 days. [facility] Vital Signs Vital Name Observation Time Observation Value Comments S v[place]a Systolic blood pressure 2023-02-01 19:59:00 137 mm[Hg] [facility] Diastolic blood pressure 2023-02-01 19:59:00 77 mm[Hg] [facility] Heart rate 2023-02-01 19:59:00 60 /min [facility] Body temperature 2023-02-01 19:59:00 36.67 [place] [facility] Respiratory rate 2023-02-01 19:59:00 16 /min [facility] Body height 2023-02-01 19:59:00 152.4 cm [facility] Body weight 2023-02-01 19:59:00 47.673 kg [facility] BMI 2023-02-01 19:59:00 20.53 kg/m2 [facility] Systolic blood pressure 2022-12-03 21:13:00 137 mm[Hg] [facility] Diastolic blood pressure 2022-12-03 21:13:00 70 mm[Hg] [facility] Heart rate 2022-12-03 21:13:00 47 /min [facility] Respiratory rate 2022-12-03 21:13:00 18 /min [facility] Body height 2022-12-03 21:13:00 152.4 cm [facility] Body weight 2022-12-03 21:13:00 47.174 kg [facility] BMI 2022-12-03 21:13:00 20.31 kg/m2 [facility] Systolic blood pressure 2021-02-24 10:30:00 112 mm[Hg] [facility] Diastolic blood pressure 2021-02-24 10:30:00 87 mm[Hg] [facility] Heart rate 2021-02-24 10:30:00 94 /min [facility] Respiratory rate 2021-02-24 10:30:00 16 /min [facility] Oxygen saturation in Arterial blood by Pulse oximetry 2021-02-24 10:30:00 99 /min [facility] Body weight 2021-02-24 07:20:00 43.092 kg [facility] BMI 2021-02-24 07:20:00 18.55 kg/m2 [facility] Body temperature 2021-02-24 07:11:00 37.56 [place] [facility] Systolic blood pressure 2019-12-14 19:43:00 125 mm[Hg] [facility] Diastolic blood pressure 2019-12-14 19:43:00 82 mm[Hg] [facility] Heart rate 2019-12-14 19:43:00 63 /min [facility] Body height 2019-12-14 19:43:00 152.4 cm [facility] Body weight 2019-12-14 19:43:00 52.617 kg [facility] BMI 2019-12-14 19:43:00 22.65 kg/m2 [facility] Oxygen saturation in Arterial blood by Pulse oximetry 2019-12-14 19:43:00 100 /min [facility] Systolic blood pressure 2019-12-06 03:57:00 114 mm[Hg] [facility] Diastolic blood pressure 2019-12-06 03:57:00 70 mm[Hg] [facility] Heart rate 2019-12-06 03:57:00 95 /min [facility] Body temperature 2019-12-06 03:57:00 37.5 [place] [facility] Respiratory rate 2019-12-06 03:57:00 20 /min [facility] Body weight 2019-12-06 03:57:00 53.071 kg [facility] BMI 2019-12-06 03:57:00 22.85 kg/m2 [facility] Oxygen saturation in Arterial blood by Pulse oximetry 2019-12-06 03:57:00 100 /min [facility] Systolic blood pressure 2019-12-05 00:50:00 128 mm[Hg] [facility] Diastolic blood pressure 2019-12-05 00:50:00 75 mm[Hg] [facility] Heart rate 2019-12-05 00:50:00 97 /min [facility] Body temperature 2019-12-05 00:50:00 36.78 [place] [facility] Respiratory rate 2019-12-05 00:50:00 16 /min [facility] Body height 2019-12-05 00:50:00 152.4 cm [facility] Body weight 2019-12-05 00:50:00 54.432 kg [facility] BMI 2019-12-05 00:50:00 23.44 kg/m2 [facility] Oxygen saturation in Arterial blood by Pulse oximetry 2019-12-05 00:50:00 100 /min [facility] Procedures Procedure Date / Time Performed Performing Clinician Source CONSENT FOR CONTRACEPTION 2023-02-01 05:01:00 Do ctor Unassigned, [place] [facility] POCT TEST 2023-02-01 00:00:00 Annel Charles [facility] ASSIGNMENT OF BENEFITS 2022-12-03 20:52:08 Docto r Unassigned, [place] [facility] DISCLOSURE AND CONSENT, MEDICAL AND SURGICAL PROCEDURES 2020-02-26 05:01:00 Doctor Unassigned, [place] [facility] ASSIGNMENT OF BENEFITS 2019-12-14 19:26:11 Docto r Unassigned, [place] [facility] EMERGENCY SERVICES AGREEMENTS AND AUTHORIZATIONS 2019-12-06 05:01:00 Doctor Unassigned, [place] [facility] CONSENT/REFUSAL FOR DIAGNOSIS AND TREATMENT 2019-12-06 03:49:05 Doctor Unassigned, [place] [facility] NOTICE OF PRIVACY PRACTICES 2019-12-05 00:46:32 Doctor Unassigned, [place] [facility] CONSENT/REFUSAL FOR DIAGNOSIS AND TREATMENT 2019-12-05 00:46:11 Doctor Unassigned, [place] [facility] Encounters Start Date/Time End Date/Time Encounter Type Admission Type Attending Clinicians Care Facility Care Department Encounter ID Source 2021-07-26 22:16:08 Emergency [facility] [id number] [facility] 2021-07-24 00:12:56 Outpatient JORGE GOLD [facility] [id number] [facility] 2023-04-26 15:00:00 2023-04-26 15:00:00 Outpatient R [facility] [id number] [facility] 2023-02-16 15:30:00 2023-02-16 15:30:00 Outpatient R DHEERAJ CONSTANTINO SALLY [facility] [id number] [facility] 2023-02-08 00:00:00 2023-02-08 00:00:00 Outpatient LUC MEDINA CHERYAL [facility] [id number] [facility] 2023-02-04 00:00:00 2023-02-04 00:00:00 Refill Luc Charles [facility] [id number] 350.1.13.10 4.2.7.2.686 [id number] [facility] 2023-02-01 15:00:00 2023-02-01 15:13:31 Outpatient R LUC CHARLES CHERYAL [facility] [id number] [facility] 2023-02-01 15:00:00 2023-02-01 15:13:31 Office Visit Luc Charles [facility] [id number] 350.1.13.10 4.2.7.2.686 [id number] [facility] 2023-02-01 00:00:00 2023-02-01 00:00:00 Orders Only Doctor Unassigned, [place] [facility] [id number] 350.1.13.10 4.2.7.2.686 [id number] [facility] 2023-01-26 00:00:00 2023-01-26 00:00:00 Telephone Seble Fernlalit [facility] 1.2.840.114 350.1.13.10 4.2.7.2.686 [id number] [facility] 2023-01-07 11:00:00 2023-01-07 11:00:00 Outpatient R DHEERAJ CONSTANTINO SALLY [facility] [id number] [facility] 2022 14:30:00 2022 14:30:00 Outpatient R LUC CHARLES CHERYAL [facility] [id number] [facility] 2022-12-03 15:00:00 2022-12-03 15:37:02 Outpatient R LUC CHARLES CHERYAL [facility] [id number] [facility] 2022-12-03 15:00:00 2022-12-03 15:37:02 Office Visit Luc Charles [facility] 1.2.840.114 350.1.13.10 4.2.7.2.686 [id number] [facility] 2022-12-03 00:00:00 2022-12-03 00:00:00 Orders Only Doctor Unassigned, [place] [facility] 1.2840.114 350.1.13.10 4.2.7.2.686 [id number] [facility] 2021-05-13 15:30:00 2021-05-13 15:30:00 Outpatient R FELTON SPENCER [facility] [id number] [facility] 2021-02-24 02:21:00 2021-02-24 05:41:00 Emergency Filomena Mosqueda S [facility] 1.840.114 350.1.13.10 4.2.7.2.686 [id number] [facility] 2020-05-28 15:00:00 2020-05-28 15:00:00 Outpatient R FELTON SPENCER [facility] [id number] [facility] 2020-03-07 00:00:00 2020-03-07 00:00:00 Telephone Jorge Lunsford [facility] 1..840.114 350.1.13.10 4.2.7.2.686 [id number] [facility] 2020-02-26 14:30:00 2020-02-26 14:30:00 Outpatient R JORGE LUNSFORD [facility] [id number] [facility] 2020-02-26 00:00:00 2020-02-26 00:00:00 Orders Only Doctor Unassigned, [place] [facility] 1.2.840.114 350.1.13.10 4.2.7.2.686 [id number] [facility] 2020-01-29 10:00:00 2020-01-29 10:00:00 Outpatient R FABIAN IGLESIAS [facility] [id number] [facility] 2020-01-29 07:31:16 2020-01-29 07:46:16 Telemedici ne Visit Fabian Iglesias [facility] 1.2840.114 350.1.13.10 4.2.7.2.686 [id number] [facility] 2020-01-04 00:00:00 2020-01-04 00:00:00 Telephone Pcp, Patient Does Not Have A [facility] Office Building [facility] 1.2.840.114 350.1.13.10 4.2.7.2.686 [id number] [facility] 2019-12-19 00:00:00 2019-12-19 00:00:00 Case Management Fabian Iglesias [facility] 1.2.840.114 350.1.13.10 4.2.7.2.686 [id number] [facility] 2019-12-19 00:00:00 2019-12-19 00:00:00 Telephone Fabian Iglesias [facility] 1.2.840.114 350.1.13.10 4.2.7.2.686 [id number] [facility] 2019-12-14 15:28:48 2019-12-14 15:43:48 Manager Material Visit 2, Adc Lab Fabian Iglesias [facility] 1.2840.114 350.1.13.10 4.2.7.2.686 [id number] [facility] 2019-12-14 14:27:17 2019-12-14 15:27:30 Office Visit Fabian Iglesias [facility] 1.840.114 350.1.13.10 4.2.7.2.686 [id number] [facility] 2019-12-14 14:30:00 2019-12-14 14:30:00 Outpatient R FABIAN IGLESIAS [facility] [id number] [facility] 2019-12-14 00:00:00 2019-12-14 00:00:00 Orders Only Doctor Unassigned, [place] [facility] 1.2840.114 350.1.13.10 4.2.7.2.686 [id number] [facility] 2019-12-06 00:15:42 2019-12-06 01:15:00 Emergency Christopher Deanna [facility] 1.840.114 350.1.13.10 4.2.7.2.686 [id number] [facility] 2019-12-06 00:15:42 2019-12-06 00:15:[address] [facility] [id number] [facility] 2019-12-06 00:00:00 2019-12-06 00:00:00 Orders Only Doctor Unassigned, [place] [facility] 1.840.114 350.1.13.10 4.2.7.2.686 [id number] [facility] 2019-12-04 19:53:28 2019-12-04 20:43:00 Emergency Roopa Callahan [facility] 1.2840.114 350.1.13.10 4.2.7.2.686 [id number] [facility] 2019-12-04 19:53:28 2019-12-04 19:53:28 Emergency X SINDY Roopa [facility] ERT [id number] [facility] Results Test Description Test Time Test Comments Results Result Co mments Source [id number]:56[facility]00* Test Item Value Reference Range Interpretation Comme nts POCT PREG (test code = 1605) Negative On board controls acceptable with C Line (test code = 3574) Yes POCT PREG LOT # (test code = 3575) POCT PREG TEST DATE ( test code = 3576) [facility]
[2023-09-19 16:41] LABS: Absolute Lymphocytes (CBC) 1.7 K/uL (0.7-4.9); Hematocrit 43.9 % (36.0-45.0); Lymphocytes % 14.4 % (15.3-44.8); MCV 92.7 fL (80-100); Platelets 247 thou/uL (152-406); RBC Red Blood Cell Count 4.74 M/uL (3.86-4.86)
[2023-09-19 16:49] LABS: Albumin 4.2 g/dL (3.4-5.0); Bilirubin Total 0.8 mg/dL (0.2-1.0); Potassium 3.5 mEq/L (3.5-5.1); Protein, Total 8.4 g/dL (6.4-8.2)
--- NOTE | 2023-09-19 17:31 | RAD REPORT ---
EXAM DESCRIPTION: CT - CTFBWCON CLINICAL HISTORY: FACIAL PAIN COMPARISON: Head Brain Wo Cont dated 12/23/2022 TECHNIQUE: Axial thin cut CT images of the face were obtained following intravenous administration 1 00 mL Isovue-300, with sagittal and coronal reconstruction images. All CT scans are performed using dose optimization technique as appropriate and may include automated exposure control or mA/KV adjustment according to patient size. FINDINGS: No acute facial bone fracture is seen. Carious changes are noted with small periapical collections at the root remnants of the bilateral max illary second molars. New bone formation along the lingual cortex of the mandibular alveolus, at the level of the right central and lateral incisors trauma with nonspecific adjacent soft tissue thickeni ng. Mild soft tissue swelling and subcutaneous fat stranding left mandibular body margin. No apprecia ble fluid collections. The globes and orbital contents are grossly unremarkable.The paranasal sinuses and mastoids are clear . IMPRESSION: Dental and periodontal disease as above, please correlate with dental exam. Mild soft tissue swelling and subcutaneous fat stranding along the left mandibular body margin. Findi ngs may suggest cellulitis. No appreciable fluid collections.
--- NOTE | 2023-09-19 17:36 | ER ---
Nurse's Notes [facility] Name: Opal Tapia Age: 32 yrs Sex: Female : 1990 Arrival Date: 09/19/2023 Time: 14:09 Bed 7 Private MD: Diagnosis: Dental caries, unspecified;Periodontal disease, unspecified Presentation: 09/19 14:13 Chief complaint: EMS states: JAW AND CHIN PAIN SINCE Y/D. Coronavirus screen: At this bp time, the client does not indicate any symptoms associated with coronavirus-19. Ebola Screen: No symptoms or risks identified at this time. Initial Sepsis Screen: Does the patient meet any 2 criteria? No. Patient's initial sepsis screen is negative. Does the patient have a suspected source of infection? No. Patient's initial sepsis screen is negative. Risk Assessment: Do you want to hurt yourself or someone else? Patient reports no desire to harm self or others. Onset of symptoms is unknown. Care prior to arrival: Glucose check: 87. 14:13 Method Of Arrival: EMS: [facility] bp 14:13 Acuity: MER 4 bp Historical: - Allergies: 14:14 Latex; bp 14:14 tramadol; bp - PMHx: 14:14 Asthma; Kidney stones; Crohn's; bp - PSHx: 14:14 Cholecystectomy; LEEP; bp - Immunization history:: Adult Immunizations up to date. - Social history:: Smoking status: Patient denies any tobacco usage or history of. Screenin:22 [facility] ED Fall Risk Assessment (Adult) History of falling in the last 3 months, ld1 including since admission No falls in past 3 months (0 pts). Abuse screen: Denies threats or abuse. Denies injuries from another. Nutritional screening: No deficits noted. Tuberculosis screening: No symptoms or risk factors identified. Assessment: 16:02 Reassessment: Patient and/or family updated on plan of care and expected duration. Pain ll1 level reassessed. 16:22 General: Appears in no apparent distress. comfortable, Behavior is calm, cooperative, ld1 appropriate for age. Pain: Denies pain. Neuro: Level of Consciousness is awake, alert, obeys commands, Oriented to person, place, time, situation. Cardiovascular: Capillary refill < 3 seconds Patient's skin is warm and dry. Rhythm is regular. Respiratory: GI: Abdomen is flat, non-distended. : No signs and/or symptoms were reported regarding the genitourinary system. EENT: No signs and/or symptoms were reported regarding the EENT system. Derm: No signs and/or symptoms reported regarding the dermatologic system. Musculoskeletal: No signs and/or symptoms reported regarding the musculoskeletal system. 17:12 Reassessment: Patient appears in no apparent distress at this time. No changes from ld1 previously documented assessment. Patient and/or family updated on plan of care and expected duration. Pain level reassessed. Vital Signs: 14:13 BP 132 / 85; Pulse 77; Resp 16; Temp 98; Pulse Ox 99% ; bp 16:22 BP 120 / 93; Pulse 92; Resp 18; Pulse Ox 100% on R/A; ld1 17:12 BP 104 / 74; Pulse 93; Resp 18; Pulse Ox 100% on R/A; ld1 18:09 BP 120 / 87; Pulse 86; Resp 16; Pulse Ox 100% on R/A; me1 ED Course: 14:10 Patient arrived in ED. rg4 14:14 Triage completed. bp 14:14 Shiva Kelley MD is Attending Physician. rt 14:14 Arm band placed on. bp 15:32 Note: need IV for CT. mw3 16:02 Patient placed in an exam room, on a stretcher. ll1 16:08 Ana Patton, LAINA is Primary Nurse. ld1 16:20 CMP Sent. ld1 16:20 CBC with Diff Sent. ld1 16:22 Patient has correct armband on for positive identification. Placed in gown. Bed in low ld1 position. Call light in reach. Side rails up X2. court monitor on. Pulse ox on. NIBP on. Door closed. Noise minimized. Warm blanket given. 16:22 No provider procedures requiring assistance completed. Inserted saline lock: 20 gauge ld1 in right antecubital area, using aseptic technique. Blood collected. 16:54 CT Facial Bones W/ Con \T\ Mpr In Process Unspecified. EDMS 18:15 Provided Education on: POC. Verbalized understanding. . me1 18:15 IV discontinued, intact, bleeding controlled, No redness/swelling at site. Pressure me1 dressing applied. Administered Medications: 16:20 Drug: Ketorolac IVP 15 mg IVP once Route: IVP; Site: right antecubital; ld1 17:44 Follow up: Response: No adverse reaction; Pain is decreased me1 16:20 Drug: Clindamycin IVPB 600 mg IVPB once over 30 mins; (mix in 50 mL) Route: IVPB; ld1 Infused Over: 30 mins; Site: right antecubital; 17:44 Follow up: Response: No adverse reaction me1 18:15 Follow up: Response: No adverse reaction; IV Status: Completed infusion me1 17:43 Drug: Ondansetron IVP 4 mg IVP once; over 2 minutes Route: IVP; Site: right antecubital;me1 18:10 Follow up: Response: No adverse reaction me1 Medication: 16:22 VIS not applicable for this client. ld1 Outcome: 17:36 Discharge ordered by . rt 18:14 Discharged to home ambulatory, me1 18:14 Condition: stable 18:14 Discharge instructions given to patient, Instructed on discharge instructions, follow up and referral plans. medication usage, Demonstrated understanding of instructions, follow-up care, medications, Prescriptions given X 2, 18:15 Patient left the ED. me1 Signatures: Dispatcher [employer] Mayte Crawford rg4 Gerry Sotelo, Jana Tanner RN mw3 Kiko Hoskins RN RN ll1 Ana Patton RN RN ld1 Shiva Kelley MD MD rt Jana Benjamin, RN RN me1
--- NOTE | 2023-09-19 17:37 | EDPHYS ---
Physician Documentation [facility] Name: Opal Tapia Age: 32 yrs Sex: Female : 1990 Arrival Date: 09/19/2023 Time: 14:09 Bed 7 Private MD: ED Physician Shiva Kelley Historical: - Allergies: 09/19 14:14 Latex; bp 14:14 tramadol; bp - PMHx: 14:14 Asthma; Kidney stones; Crohn's; bp - PSHx: 14:14 Cholecystectomy; LEEP; bp - Immunization history:: Adult Immunizations up to date. - Social history:: Smoking status: Patient denies any tobacco usage or history of. Vital Signs: 14:13 BP 132 / 85; Pulse 77; Resp 16; Temp 98; Pulse Ox 99% ; bp 16:22 BP 120 / 93; Pulse 92; Resp 18; Pulse Ox 100% on R/A; ld1 17:12 BP 104 / 74; Pulse 93; Resp 18; Pulse Ox 100% on R/A; ld1 18:09 BP 120 / 87; Pulse 86; Resp 16; Pulse Ox 100% on R/A; me1 MDM: 14:21 Patient medically screened. rt 09/19 14:23 Order name: CBC with Diff; Complete Time: 16:57 rt 09/19 14:23 Order name: CMP; Complete Time: 16:57 rt 09/19 14:23 Order name: CT Facial Bones W/ Con \T\ Mpr; Complete Time: 17:32 rt Administered Medications: 16:20 Drug: Ketorolac IVP 15 mg IVP once Route: IVP; Site: right antecubital; ld1 17:44 Follow up: Response: No adverse reaction; Pain is decreased me1 16:20 Drug: Clindamycin IVPB 600 mg IVPB once over 30 mins; (mix in 50 mL) Route: IVPB; ld1 Infused Over: 30 mins; Site: right antecubital; 17:44 Follow up: Response: No adverse reaction me1 18:15 Follow up: Response: No adverse reaction; IV Status: Completed infusion me1 17:43 Drug: Ondansetron IVP 4 mg IVP once; over 2 minutes Route: IVP; Site: right antecubital;me1 18:10 Follow up: Response: No adverse reaction me1 Disposition Summary: 09/19/23 17:36 Discharge Ordered Notes: Location: Home rt Problem: new rt Symptoms: are unchanged rt Condition: Stable rt Diagnosis - Dental caries, unspecified rt - Periodontal disease, unspecified rt Followup: rt - With: Private Physician - When: 5 - 6 days - Reason: Discharge Instructions: - Discharge Summary Sheet rt - Dental Caries, Adult rt - Periodontal Disease rt Forms: - Medication Reconciliation Form rt - Thank You Letter rt - Antibiotic Education rt - Prescription Opioid Use rt - Patient Portal Instructions rt - Leadership Thank You Letter rt Prescriptions: - Peridex 0.12 % Mucous Membrane Mouthwash - swish 15 milliliter BUCCAL route 2 times per day; 300 milliliter; Refills: 0, rt Product Selection Permitted - Clindamycin HCl 300 mg Oral Capsule - take 1 capsule ORAL route every 6 hours for 10 days; 40 capsule; Refills: 0, rt Product Selection Permitted Signatures: Dispatcher [employer] Gerry Brown RN RN Ana Patton RN RN ld1 Shiva Kelley MD MD rt Jana Benjamin RN RN me1
[2023-09-19 18:26] VITALS: BP 120/87; TEMP 98; O2SAT 100
== END ==
LOC: ER 14:09
DX: K02.9 Dental caries, unspecified (principal); K05.6 Periodontal disease, unspecified; Z88.5 Allergy status to narcotic agent; Z91.040 Latex allergy status
CPT/HCPCS: 96365; 85025; 36415; 80053; 70487; 76377; 96375; 99285; 96366; Q9967; J2405

== ENCOUNTER 2024-04-24 19:18 | Emergency (ER) | payer OTHER ==
--- OUTSIDE RECORDS SUMMARY | 2024-04-24 19:22 | XMS REPORT | Continuity of Care Document ---
Author Name Unknown Address [address] [place] [address] [facility] thconnect Address [address] [place] [address] Care Team Providers Care Supervisor Fertilizer Processing Name Role Phone FIDELIA REED Primary Care Physician Unava ilJORGE Dillon Attending Clinician Unavailable DHEERAJ CONSTANTINO Attending Clinician Unavailable DHEERAJ CONSTANTINO Attending Clinician Unavailable LUC CHARLES Attending Clinician UnavailLUC Parrish Attending Clinician Unavaila darian XIAO KANIKA Attending Clinician Unavailable Doctor Unassigned, [place] Attending Clinician U FELTON Welsh Attending Clinician Unavailable Filomena Diaz Attending Clinician [phone] Jorge Lunsford MD Attending Clinician [phone] FABIAN IGLESIAS Attending Clinician UnavailFabian Youssef MD Attending Clinician Pcp, Patient Does Not Have A Attending Clinician 2, [facility] Attending Clinician Unavailable Deanna White MD Attending Clinician [phone] DEANNA WHITE Attending Clinician Unavailable Roopa Holt Attending Clinician [phone] Roopa CALLAHAN Attending Clinician Unavailable FIDELIA REED M.D., FIDELIA Harris M.D. [facility] Clinician Unavailable JORGE LUNSFORD Admitting Clinician Unavailable FIDELIA REDE M.D., FIDELIA arias Clinician Unavailable Payers Payer Name Policy Type Policy Number Effective Date Expirati on Date Source [facility] [id number] 2019 00:00:00 Problems Condition Name Condition Details Condition Category Status Onset Date Resolution Date Last Treatment Date Treating Clinician Comments Source Encounter for IUD removal and reinsertio n Encounter for IUD removal and reinsertio n Disease Active 02-01 00:00: 00 [facility] Galactorrh ea Galactorrh ea Disease Active 12-04 00:00: 00 [facility] Presence of intrauteri ne contracept lb device Presence of intrauteri ne contracept lb device Disease Active 12-04 00:00: 00 [facility] History of depression History of depression Disease Active 12-04 00:00: 00 [facility] Nausea and vomiting, unspecifie d vomiting type Nausea and vomiting, unspecifie d vomiting type Disease Active 12-04 00:00: 00 [facility] Decreased appetite Decreased appetite Disease Active 12-04 00:00: 00 [facility] Decreased heart rate Decreased heart rate Disease Active 12-04 00:00: 00 [facility] Dizziness and giddiness Dizziness and giddiness Disease Active 12-04 00:00: 00 [facility] Heart palpitatio ns Heart palpitatio ns Disease Active 12-04 00:00: 00 [facility] Weight loss Weight loss Disease Active 02-26 00:00: 00 Overview: Formattin g of this note might be different from the original. Added automatic ally from request for surgery [id number] [facility] IBD (inflammat ory bowel disease) IBD (inflammat ory bowel disease) Disease Active 02-26 00:00: 00 Overview: Formattin g of this note might be different from the original. Added automatic ally from request for surgery [id number] [facility] B12 deficiency B12 deficiency Disease Active 12-18 00:00: 00 [facility] Folate deficiency Folate deficiency Disease Active 12-18 00:00: 00 [facility] Elevated serum protein level Elevated serum protein level Disease Active 12-18 00:00: 00 [facility] Fatigue, unspecifie d type Fatigue, unspecifie d type Disease Active 12-15 00:00: 00 [facility] Normal labor Normal labor Disease Active 09-26 00:00: 00 [facility] Threatened labor at term Threatened labor at term Disease Active 2015-09 00:00: 00 [facility] uterine contractio ns in third trimester, antepartum uterine contractio ns in third trimester, antepartum Disease Active 2015-09 00:00: 00 [facility] No known active problems No known active problems Disease [facility] Chronic bronchitis Chronic bronchitis Disease Active [facility] Crohn disease Crohn disease Disease Active [facility] Asthma Asthma Disease Active [facility] Allergic rhinitis Allergic rhinitis Disease Active [facility] Allergies, Adverse Reactions, Alerts Allergy Name Allergy Type Status Severity Reaction(s) Onset Date Inactive Date Treating Clinician Comments Source TRAMADOL DRUG INGREDI Active High N/V 12-13 00:00: 00 [facility] Tramadol Propensi ty to adverse reaction s Active Nausea and/or Vomiting 12-13 00:00: 00 [facility] NO KNOWN ALLERGIE S Drug Class Active [facility] Social History Social Habit Start Date Stop Date Quantity Comments Source History of tobacco use Smokes tobacco daily [facility] Exposure to SARS-CoV-2 (event) 2023-01-22 00:00:00 2023-02-01 14:46:00 Not sure [facility] Alcohol intake 2023-02-01 00:00:00 2023-02-01 00:00:00 Ex-drinker (finding) [facility] Tobacco use and exposure 2022-12-03 00:00:00 2022-12-03 00:00:00 Smokeless tobacco non-user [facility] Tobacco Comment 2019-12-14 00:00:00 2019-12-14 00:00:00 vaping [facility] Sex Assigned At 1990 00:00:00 1990 00:00:00 [facility] Smoking Status Start Date Stop Date Source Unknown if ever smoked [facility] Never smoked tobacco [facility] Smokes tobacco daily 2019-12-14 00:00:00 [facility] Medications Ordered Medication Name Filled Medication Name Start Date Stop Date Current Medication? Ordering Clinician Indication Dosage Frequency Signature (SIG) Comments Components Source levonorgest reL (KYLEENA) IUD 1 Device 02-01 21:15: 00 02-01 20:18 :00 No [id number] 1{devic e} [facility] proMETHazin e 12.5 mg tablet 02-01 00:00: 00 Yes [id number] 12.5mg Take 1 tablet by mouth every 4 (four) hours as needed for Nausea and Vomiting (N/V). [facility] proMETHazin e 12.5 mg tablet 12-04 00:00: 00 02-01 00:00 :00 No [id number] 12.5mg Take 1 tablet by mouth every 4 (four) hours as needed for Nausea and Vomiting (N/V). [facility] LORazepam (ATIVAN) tablet 0.5 mg 02-24 08:30: 00 02-24 07:28 :00 No .5mg 0.5 mg, Oral, ONCE, 1 dose, Tue02/24/21 at 0330, EDUARDO [facility] peg-electro lyte soln 236-22.74-6 .74 -5.86 gram solution 02-25 00:00: 00 Yes [id number] 4000mL Take 4,000 mL by mouth SEE-INSTRU CTIONS. Take as directed [facility] ondansetron HCl (ZOFRAN ORAL) 01-03 21:49: 37 01-03 00:00 :00 No Take by mouth. [facility] ondansetron 4 mg tablet 01-03 00:00: 00 Yes [id number] 4mg Take 1 tablet by mouth every 8 (eight) hours as needed for Nausea and Vomiting (N/V). [facility] vitamin B-12 1,000 mcg tablet 12-18 00:00: 00 Yes [id number] 1000ug Take 1 tablet by mouth daily. [facility] foLIC acid 1 mg tablet 12-18 00:00: 00 Yes [id number] 1mg Take 1 tablet by mouth daily. [facility] sulfamethox azole/trime thoprim (SMZ-TMP DS ORAL) 12-13 20:21: 36 12-13 00:00 :00 No Take by mouth. [facility] ondansetron HCl (ZOFRAN ORAL) 12-13 19:46: 17 Yes Take by mouth. [facility] albuterol 90 mcg/actuati on inhaler 12-13 00:00: 00 Yes [id number] 2{puff} Inhale 2 Puffs every 6 (six) hours as needed for Wheezing or Shortness of Breath. [facility] sulfamethox azole-trime thoprim (BACTRIM DS) 800-160 mg per tablet 12-13 00:00: 00 12-18 04:59 :00 No [id number] 1{tbl} Take 1 tablet by mouth 2 (two) times daily for 4 days. [facility] fluconazole 150 mg tablet 12-13 00:00: 00 12-14 04:59 :00 No [id number] 150mg Take 1 tablet by mouth once now for 1 dose. May repeat in 3-4 days. [facility] ondansetron 4 mg tablet 12-08 00:00: 00 01-03 00:00 :00 No 1{tbl} Take 1 tablet by mouth every 8 (eight) hours as needed for Nausea. [facility] traMADol (ULTRAM) tablet 50 mg 12-05 07:00: 00 12-05 05:54 :00 No 50mg 50 mg, Oral, ONCE, 1 dose, [facility] 12/06/19 at 0200, Routine [facility] cephALEXin (KEFLEX) capsule 500 mg 12-05 06:45: 00 12-05 05:52 :00 No 500mg 500 mg, Oral, ONCE, 1 dose, Yesenia 12/06/19 at 0145, EDUARDO
Re ason for Anti-Infec tive: Documented Infection< br>Documen alexia Infection Site: Skin / Soft Tissue
Duration of Therapy: Other (see Comments) [facility] mupirocin 2 % ointment 12-03 00:00: 00 Yes [id number] Apply to area(s) 3 (three) times daily. [facility] cephALEXin (KEFLEX) 500 mg capsule 12-03 00:00: 00 12-13 00:00 :00 No [id number] 500mg Take 1 capsule by mouth 3 (three) times daily for 10 days. [facility] Vital Signs Vital Name Observation Time Observation Value Comments S ource Systolic blood pressure 2023-02-01 19:59:00 137 mm[Hg] [facility] Diastolic blood pressure 2023-02-01 19:59:00 77 mm[Hg] [facility] Heart rate 2023-02-01 19:59:00 60 [facility] Body temperature 2023-02-01 19:59:00 36.67 [facility] Respiratory rate 2023-02-01 19:59:00 16 /min [facility] Body height 2023-02-01 19:59:00 152.4 cm [facility] Body weight 2023-02-01 19:59:00 47.673 kg [facility] BMI 2023-02-01 19:59:00 20.53 kg/m2 [facility] Systolic blood pressure 2022-12-03 21:13:00 137 mm[Hg] [facility] Diastolic blood pressure 2022-12-03 21:13:00 70 mm[Hg] [facility] Heart rate 2022-12-03 21:13:00 47 /min [facility] Respiratory rate 2022-12-03 21:13:00 18 /min [facility] Body height 2022-12-03 21:13:00 152.4 cm [facility] Body weight 2022-12-03 21:13:00 47.174 kg [facility] BMI 2022-12-03 21:13:00 20.31 kg/m2 [facility] Systolic blood pressure 2021-02-24 10:30:00 112 mm[Hg] [facility] Diastolic blood pressure 2021-02-24 10:30:00 87 mm[Hg] [facility] Heart rate 2021-02-24 10:30:00 94 /min [facility] Respiratory rate 2021-02-24 10:30:00 16 /min [facility] Oxygen saturation in Arterial blood by Pulse oximetry 2021-02-24 10:30:00 99 /min [facility] Body weight 2021-02-24 07:20:00 43.092 kg [facility] BMI 2021-02-24 07:20:00 18.55 kg/m2 [facility] Body temperature 2021-02-24 07:11:00 37.56 [place] [facility] Systolic blood pressure 2019-12-14 19:43:00 125 mm[Hg] [facility] Diastolic blood pressure 2019-12-14 19:43:00 82 mm[Hg] [facility] Heart rate 2019-12-14 19:43:00 63 /min [facility] Body height 2019-12-14 19:43:00 152.4 cm [facility] Body weight 2019-12-14 19:43:00 52.617 kg [facility] BMI 2019-12-14 19:43:00 22.65 kg/m2 [facility] Oxygen saturation in Arterial blood by Pulse oximetry 2019-12-14 19:43:00 100 /min [facility] Systolic blood pressure 2019-12-06 03:57:00 114 mm[Hg] [facility] Diastolic blood pressure 2019-12-06 03:57:00 70 mm[Hg] [facility] Heart rate 2019-12-06 03:57:00 95 /min [facility] Body temperature 2019-12-06 03:57:00 37.5 [place] [facility] Respiratory rate 2019-12-06 03:57:00 20 /min [facility] Body weight 2019-12-06 03:57:00 53.071 kg [facility] BMI 2019-12-06 03:57:00 22.85 kg/m2 [facility] Oxygen saturation in Arterial blood by Pulse oximetry 2019-12-06 03:57:00 100 /min [facility] Systolic blood pressure 2019-12-05 00:50:00 128 mm[Hg] [facility] Diastolic blood pressure 2019-12-05 00:50:00 75 mm[Hg] [facility] Heart rate 2019-12-05 00:50:00 97 /min [facility] Body temperature 2019-12-05 00:50:00 36.78 [place] [facility] Respiratory rate 2019-12-05 00:50:00 16 /min [facility] Body height 2019-12-05 00:50:00 152.4 cm [facility] Body weight 2019-12-05 00:50:00 54.432 kg [facility] BMI 2019-12-05 00:50:00 23.44 kg/m2 [facility] Oxygen saturation in Arterial blood by Pulse oximetry 2019-12-05 00:50:00 100 /min [facility] Procedures Procedure Date / Time Performed Performing Clinician Source CONSENT FOR CONTRACEPTION 2023-02-01 05:01:00 Do ctor Unassigned, [place] [facility] POCT TEST 2023-02-01 00:00:00 Annel Charles [facility] ASSIGNMENT OF BENEFITS 2022-12-03 20:52:08 Docderek r Unassigned, [place] [facility] DISCLOSURE AND CONSENT, MEDICAL AND SURGICAL PROCEDURES 2020-02-26 05:01:00 Doctor Unassigned, [place] [facility] ASSIGNMENT OF BENEFITS 2019-12-14 19:26:11 Docto r Unassigned, [place] [facility] EMERGENCY SERVICES AGREEMENTS AND AUTHORIZATIONS 2019-12-06 05:01:00 Doctor Unassigned, [place] [facility] CONSENT/REFUSAL FOR DIAGNOSIS AND TREATMENT 2019-12-06 03:49:05 Doctor Unassigned, [place] [facility] NOTICE OF PRIVACY PRACTICES 2019-12-05 00:46:32 Doctor Unassigned, [place] [facility] CONSENT/REFUSAL FOR DIAGNOSIS AND TREATMENT 2019-12-05 00:46:11 Doctor Unassigned, [place] [facility] Encounters Start Date/Time End Date/Time Encounter Type Admission Type Attending [facility] Care Department Encounter ID Source 2021-07-26 22:16:08 Emergency [facility] [id number] [facility] 2021-07-24 00:12:56 Outpatient R JORGE LUNSFORD [facility] [id number] [facility] 2023-04-26 15:00:00 2023-04-26 15:00:00 Outpatient R [facility] [id number] [facility] 2023-02-16 15:30:00 2023-02-16 15:30:00 Outpatient R DHEERAJ CONSTANTINO SALLY [facility] [id number] [facility] 2023-02-08 00:00:00 2023-02-08 00:00:00 Outpatient R LUC CHARLES CHERYAL [facility] [id number] [facility] 2023-02-04 00:00:00 2023-02-04 00:00:00 Refill Luc Charles [facility] 1.2.840.114 350.1.13.10 4.2.7.2.686 [id number] [facility] 2023-02-01 15:00:00 2023-02-01 15:13:31 Outpatient R LUC CHARLES CHERYAL [facility] [id number] [facility] 2023-02-01 15:00:00 2023-02-01 15:13:31 Office Visit Luc Charles [facility] 1.840.114 350.1.13.10 4.2.7.2.686 [id number] [facility] 2023-02-01 00:00:00 2023-02-01 00:00:00 Orders Only Doctor Unassigned, [place] [facility] 1.2840.114 350.1.13.10 4.2.7.2.686 [id number] [facility] 2023-01-26 00:00:00 2023-01-26 00:00:00 Telephone Luc Charles [facility] 1.0.114 350.1.13.10 4.2.7.2.686 [id number] [facility] 2023-01-07 11:00:00 2023-01-07 11:00:00 Outpatient R DHEERAJ CONSTANTINO SALLY [facility] [id number] [facility] 2022 14:30:00 2022 14:30:00 Outpatient R LUC CHARLES [facility] [id number] [facility] 2022-12-03 15:00:00 2022-12-03 15:37:02 Outpatient R LUC CHARLES CHERYAL [facility] [id number] [facility] 2022-12-03 15:00:00 2022-12-03 15:37:02 Office Visit Luc Charles [facility] 1.840.114 350.1.13.10 4.2.7.2.686 [id number] [facility] 2022-12-03 00:00:00 2022-12-03 00:00:00 Orders Only Doctor Unassigned, [place] [facility] 1.2840.114 350.1.13.10 4.2.7.2.686 [id number] [facility] 2021-05-13 15:30:00 2021-05-13 15:30:00 Outpatient R FELTON SPENCER [facility] [id number] [facility] 2021-02-24 02:21:00 2021-02-24 05:41:00 Emergency Filomena Mosqueda S [facility] 1.2840.114 350.1.13.10 4.2.7.2.686 [id number] [facility] 2020-05-28 15:00:00 2020-05-28 15:00:00 Outpatient R FELTON SPENCER [facility] [id number] [facility] 2020-03-07 00:00:00 2020-03-07 00:00:00 Telephone Jorge Lunsford [facility] 1.840.114 350.1.13.10 4.2.7.2.686 [id number] [facility] 2020-02-26 14:30:00 2020-02-26 14:30:00 Outpatient R LUNSFORDJORGE [facility] [id number] [facility] 2020-02-26 00:00:00 2020-02-26 00:00:00 Orders Only Doctor Unassigned, [place] [facility] 1.840.114 350.1.13.10 4.2.7.2.686 [id number] [facility] 2020-01-29 10:00:00 2020-01-29 10:00:00 Outpatient R FABIAN IGLESIAS [facility] [id number] [facility] 2020-01-29 07:31:16 2020-01-29 07:46:16 Telemedici ne Visit Fabian Iglesias [facility] 1..840.114 350.1.13.10 4.2.7.2.686 [id number] [facility] 2020-01-04 00:00:00 2020-01-04 00:00:00 Telephone Pcp, Patient Does Not Have A [facility] 1.2.840.114 350.1.13.10 4.2.7.2.686 [id number] [facility] 2019-12-19 00:00:00 2019-12-19 00:00:00 Case Management Fabian Iglesias [facility] 1.2.840.114 350.1.13.10 4.2.7.2.686 [id number] [facility] 2019-12-19 00:00:00 2019-12-19 00:00:00 Telephone Fabian Iglesias [facility] 1.2840.114 350.1.13.10 4.2.7.2.686 [id number] [facility] 2019-12-14 15:28:48 2019-12-14 15:43:48 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13.10 4.2.7.2.686 [id number] [facility] 2019-12-06 00:15:42 2019-12-06 01:15:00 Emergency Deanna White [facility] 1.2.840.114 350.1.13.10 4.2.7.2.686 [id number] [facility] 2019-12-06 00:15:42 2019-12-06 00:15:42 Emergency X DEANNA WHITE [facility] ERT [id number] [facility] 2019-12-06 00:00:00 2019-12-06 00:00:00 Orders Only Doctor Unassigned, [place] [facility] 1.2.840.114 350.1.13.10 4.2.7.2.686 [id number] [facility] 2019-12-04 19:53:28 2019-12-04 20:43:00 Emergency Roopa Callahan Alena [facility] 1.2.840.114 350.1.13.10 4.2.7.2.686 [id number] [facility] 2019-12-04 19:53:28 2019-12-04 19:53:28 Emergency X Roopa CALLAHAN [facility] ERT [id number] [facility] Results Test Description Test Time Test Comments Results Result Co [facility]ments [id number]:56:00* Test Item Value Reference Range Interpretation Comme nts POCT PREG (test code = 1605) Negative On board controls acceptable with C Line (test code = 3574) Yes POCT PREG LOT # (test code = 3575) POCT PREG TEST DATE ( test code = 3576) [facility], [id number] 18:00:00* Test Item Value Reference Range Interpretation Comme nts Preg Qual [Se] (test code = BSHCG) Negative Negative N Notes Date/Time Note Provider Source 2017-09-13 21:08:23 [facility] enter Discharge Summary PATIENT NAME: MALI HICKS PHYSICIAN: Costa Mckeon MD Admitted: MR NUMBER: [id number] DISCHARGED: This patient is an outpatient Day Surgery patient. ATTENDING PHYSICIAN: Fidelia Reed MD FINAL DIAGNOSIS: [...] Costa Mckeon MD On 09/07/2017 03:45 PM AIR BRUSH OPERATOR [facility] Discharge Summary PATIENT NAME: MALI HICKS PHYSICIAN: Costa Mckeon MD Admitted: MR NUMBER: [id number] DISCHARGED: This patient is an outpatient Day Surgery patient. ATTENDING PHYSICIAN: Fidelia Reed MD FINAL DIAGNOSIS: [...] Costa Mckeon MD On 09/07/2017 03:45 PM AIR BRUSH OPERATOR Electronically Authenticated by: Fidelia Reed MD On 09/19/2017 02:58 AM AIR BRUSH OPERATOR [facility] 2017-09-13 21:08:23 [facility] enter Operative Report/Procedure PATIENT NAME: KURTMALI PHYSICIAN: Costa Mckeon MD Admitted: MR NUMBER: [id number] DISCHARGED: DATE OF OPERATION: 09/06/2017 ATTENDING: Fidelia Reed MD RESIDENT: Costa Mckeon MD PREOPERATIVE DIAGNOSIS: Cervical intraepithelial neoplasia 3. POSTOPERATIVE DIAGNOSIS: Cervical intraepithelial neoplasia 3. PROCEDURE PERFORMED: Loop electrosurgical excision procedure. ANESTHESIA: General. IV FLUIDS: 1000 mL. ESTIMATED BLOOD LOSS: 2 mL. COMPLICATIONS: None. FINDINGS: A 2 x 2 cm cervix nonsustaining area at 5 o'clock, cervical cone biopsy excised. INDICATIONS: A 26-year-old G2, P2 with MIKIE 3. Risks, benefits and alternatives of the LEEP discussed with the patient and the patient agreed to the procedure. PROCEDURE: The patient was taken to the OR with IV in place. She was induced and intubated without difficulty and placed in dorsal lithotomy position. A powder spated speculum was placed into the vagina. The cervix was stained with Lugol solution. A 2% solution of lidocaine with epinephrine was injected into the 4 and 8 o'clock positions using a 20 x 20 mm loop, a cervical cone biopsy was excised. The cone biopsy was excised in 2 halves, an anterior and posterior half. The cervix was then cauterized using the ball electrode. Monsel solution was placed into the cervix and excellent hemostasis was noted. The speculum was removed and the patient was removed from stirrups and remained in stable condition upon transfer to the recovery room. [facility] Operative Report/Procedure PATIENT NAME: MALI HICKS PHYSICIAN: Costa Mckeon MD Admitted: MR NUMBER: [id number] DISCHARGED: DATE OF OPERATION: 09/06/2017 ATTENDING: Fidelia Reed MD RESIDENT: Costa Mckeon MD PREOPERATIVE DIAGNOSIS: Cervical intraepithelial neoplasia 3. POSTOPERATIVE DIAGNOSIS: Cervical intraepithelial neoplasia 3. PROCEDURE PERFORMED: Loop electrosurgical excision procedure. ANESTHESIA: General. IV FLUIDS: 1000 mL. ESTIMATED BLOOD LOSS: 2 mL. COMPLICATIONS: None. FINDINGS: A 2 x 2 cm cervix nonsustaining area at 5 o'clock, cervical cone biopsy excised. INDICATIONS: A 26-year-old G2, P2 with MIKIE 3. Risks, benefits and alternatives of the LEEP discussed with the patient and the patient agreed to the procedure. PROCEDURE: The patient was taken to the OR with IV in place. She was induced and intubated without difficulty and placed in dorsal lithotomy position. A powder spated speculum was placed into the vagina. The cervix was stained with Lugol solution. A 2% solution of lidocaine with epinephrine was injected into the 4 and 8 o'clock positions using a 20 x 20 mm loop, a cervical cone biopsy was excised. The cone biopsy was excised in 2 halves, an anterior and posterior half. The cervix was then cauterized using the ball electrode. Monsel solution was placed into the cervix and excellent hemostasis was noted. The speculum was removed and the patient was removed from stirrups and remained in stable condition upon transfer to the recovery room. [facility] Operative Report/Procedure MD Fidelia Traylor MD AN/PAD/RAMOS/UNA TD: 09/06/2017 12:47 CC:Fidelia Reed MD Edited by: Costa Mckeon MD On 09/07/2017 03:45 PM AIR BRUSH OPERATOR Electronically Authenticated and Edited by: Costa Mckeon MD On 09/07/2017 03:46 PM AIR BRUSH OPERATOR [facility] Operative Report/Procedure MD Fidelia Traylor MD AN/PAD/RAMOS/UNA TD: 09/06/2017 12:47 CC:Fidelia Reed MD Edited by: Costa Mckeon MD On 09/07/2017 03:45 PM AIR BRUSH OPERATOR Electronically Authenticated and Edited by: Costa Mckeon MD On 09/07/2017 03:46 PM AIR BRUSH OPERATOR Electronically Authenticated by: Fidelia Reed MD On 09/19/2017 02:58 AM AIR BRUSH OPERATOR [facility]
[2024-04-24] MEDS ORDERED: NA CHLORIDE 0.9% 1,000 ML ONE (20:08)
[2024-04-24 20:21] LABS: Absolute Eosinophils 0.1 K/uL (0-0.5); Absolute Lymphocytes (CBC) 1.8 K/uL (0.7-4.9); Absolute Monocytes 0.5 K/uL (0.1-1.3); Absolute Neutrophil 7.4 K/uL (1.8-8.0); Basophils % 0.4 % (0-1.3); Eosinophils % 0.6 % (0-4.4); Hematocrit 41.3 % (36.0-45.0); Hemoglobin 14.1 g/dL (12.0-15.0); Lymphocytes % 18.3 % (15.3-44.8); MCH 31.6 pg (27.0-35.0); MCHC 34.1 g/dL (32.0-36.0); MCV 92.7 fL (80-100); MPV 8.4 fL (7.6-11.3); Monocytes % 5.2 % (3.3-12.3); Neutrophils % 75.5 % (41.7-73.7); Nucleated Red Blood Cells % 0.1 % (0-0); Platelets 247 thou/uL (152-406); RBC Red Blood Cell Count 4.46 M/uL (3.86-4.86); Red Cell Distribution Width 12.2 % (12.1-15.2)
[2024-04-24 20:31] LABS: Specific Gravity 1.004 (1.005-1.030); Specific Gravity < 1.005 (1.005-1.030); Sqamous Epithelial <5 /HPF (None Seen); Urine Bacteria <20 /HPF (<20); Urine Bilirubin NEGATIVE (Negative); Urine Blood Negative (Negative); Urine Clarity Turbid (Clear); Urine Color Colorless (Yellow); Urine Crystals Unidentified Few /HPF (None Seen); Urine Culture Reflex Order NOT NEEDED; Urine Glucose NEGATIVE (Negative); Urine Ketones NEGATIVE (Negative); Urine Microscopic Reflex YN ORDER UMIC; Urine Nitrite NEGATIVE (Negative); Urine Protein NEGATIVE (Negative); Urine RBC <5 /HPF (None Seen); Urine Urobilinogen Normal (Normal); Urine pH 6.5 (5.0-7.0)
[2024-04-24 20:33] LABS: Albumin 4.4 g/dL (3.4-5.0); Albumin/Globulin Ratio 1.3 (1.1-1.8); Anion Gap 8.4 mEq/L (5.0-15.0); Bilirubin Total 0.6 mg/dL (0.2-1.0); Globulin 3.4 g/dL (2.3-3.5); Potassium 3.4 mEq/L (3.5-5.1); Protein, Total 7.8 g/dL (6.4-8.2)
--- NOTE | 2024-04-24 22:44 | RAD REPORT ---
EXAM DESCRIPTION: CT - Abdomen Pelvis W Contrast - 04/24/2024 10:16 pm CLINICAL HISTORY: ABD PAIN COMPARISON: Abdomen Pelvis W Contrast dated 06/27/2023; Abdomen Pelvis W Contrast dated 02/23/2023 ; Abdomen Pelvis W Contrast dated 08/11/2021 TECHNIQUE: Thin cut axial CT imaging of the abdomen and pelvis was performed following intravenous a dministration of iodinated contrast. Multiplanar reformats were generated and reviewed. All CT scans are performed using dose optimization technique as appropriate and may include automated exposure control or mA/KV adjustment according to patient size. FINDINGS: No suspicious findings in the lung bases. The liver, spleen, adrenal glands, and pancreas show no suspicious findings. Gallbladder was surgical ly removed Focal areas of cortical thinning and hypoenhancement in the left renal interpolar and lower pole akosua ons, stable, suggesting prior scarring. No hydronephrosis or suspicious renal mass. Numerous left low er renal pole calculi up to 9 mm in greatest dimension. No dilated bowel loops or bowel wall thickening. IUD in place. No free air, free fluid or inflammator y stranding. No hernia, mass or bulky lymphadenopathy. The urinary bladder is without significant fin ding. No suspicious bony findings. IMPRESSION: No acute intra-abdominal process. Numerous left lower renal pole nonobstructing calculi again seen, largest measuring 9 mm.
--- NOTE | 2024-04-24 22:50 | EDPHYS ---
Physician Documentation [facility] Name: Opal Tapia Age: 33 yrs Sex: Female : 1990 Arrival Date: 04/24/2024 Time: 19:18 Bed 5 Private MD: ED Physician Mitchell Stiles HPI: 04/24 23:12 This 33 yrs old Female presents to ER via Ambulatory with complaints of Back Pain, Pain kb With Urination. 23:12 Pt is a 33 year old female who presents for vaginal discharge for a week, urinary kb frequency and dysuria for 3 days. States she is starting to have pain in left flank as well. States her partner told her he had an STI and exposed her. Denies fever. . 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 - Infectious Disease History:: Denies. - Social history:: Smoking status: Reported history of juuling and/or vaping. ROS: 23:10 Constitutional: As per HPI kb Exam: 23:10 Constitutional: This is a well developed, well nourished patient who is awake, alert, kb and in no acute distress. Head/Face: Normocephalic, atraumatic. ENT: Moist Mucous membranes Cardiovascular: Regular rate Respiratory: Respirations even and unlabored. No increased work of breathing. Talking in full sentences Abdomen/GI: Soft, non-tender. No distention Skin: Warm, dry with normal turgor. Normal color. MS/ Extremity: Pulses equal, no cyanosis. Neurovascular intact. Full, normal range of motion. Neuro: Awake and alert, GCS 15, oriented to person, place, time, and situation. Moves all extremities. Normal gait. 23:10 Back: pain, that is mild, of the left flank, Vital Signs: 19:32 BP 117 / 75; Pulse 74; Resp 17; Temp 98.6(O); Pulse Ox 99% ; Weight 49.9 kg; Height 5 ap3 ft. 0 in. ; Pain 4/10; 20:11 BP 116 / 64; Pulse 80; Resp 17; Temp 98.6; Pulse Ox 100% ; Pain 4/10; bm8 22:30 BP 121 / 84; Pulse 106; Resp 18; Temp 98.6; Pulse Ox 100% ; Pain 2/10; bm8 19:32 Body Mass Index 21.48 (49.90 kg, 152.4 cm) ap3 19:32 Pain Scale: Adult ap3 20:11 Pain Scale: Adult bm8 22:30 Pain Scale: Adult bm8 Erie Coma Score: 20:11 Eye Response: spontaneous(4). Motor Response: obeys commands(6). Verbal Response: bm8 oriented(5). Total: 15. 22:30 Eye Response: spontaneous(4). Motor Response: obeys commands(6). Verbal Response: bm8 oriented(5). Total: 15. MDM: 19:24 Patient medically screened. kb 23:11 Data reviewed: vital signs, nurses notes. kb 23:13 Differential diagnosis: STI, UTI, pyelonephritis. Counseling: I had a detailed kb discussion with the patient and/or guardian regarding the historical points, exam findings, and any diagnostic results supporting the discharge/admit diagnosis, lab results, the need for outpatient follow up, a family practitioner, to return to the emergency department if symptoms worsen or persist or if there are any questions or concerns that arise at home. 04/24 19:30 Order name: CBC with Diff; Complete Time: 20:32 kb 04/24 19:30 Order name: CMP; Complete Time: 20:35 kb 04/24 19:30 Order name: Lipase; Complete Time: 20:35 kb 04/24 19:30 Order name: Test, Urine; Complete Time: 20:32 kb 04/24 19:30 Order name: Urinalysis w/ reflexes; Complete Time: 20:32 kb 04/24 19:30 Order name: Wet Prep; Complete Time: 21:46 kb 04/24 19:30 Order name: GC (Carlos/Chl) Probe VAGINAL (Do not order if pt is under 13, order Culture kb instead) 04/24 19:30 Order name: CT Abd/Pelvis - IV Contrast Only; Complete Time: 22:47 kb 04/24 19:30 Order name: IV Saline Lock; Complete Time: 20:11 kb 04/24 19:30 Order name: Labs collected and sent; Complete Time: 20:11 kb Administered Medications: 20:11 Drug: NS 0.9% IV 1000 ml IV at 1 bolus Per protocol; 1000 mL bolus Route: IV; Rate: 1 bm8 bolus; Site: left hand; 22:31 Follow up: Response: No adverse reaction; IV Status: Completed infusion; IV Intake: bm8 1000ml Disposition: 04/25 21:23 Co-signature as Attending Physician, Mitchell Stiles MD I agree with the assessment and francisco plan of care. Disposition Summary: 04/24/24 22:49 Discharge Ordered Notes: Location: Home kb Condition: Stable kb Diagnosis - Trichomoniasis, unspecified kb Followup: kb - With: Emergency Department - When: As needed - Reason: Worsening of condition Followup: kb - With: Private Physician - When: 2 - 3 days - Reason: Recheck today's complaints, Continuance of care, Re-evaluation by your physician Discharge Instructions: - Discharge Summary Sheet kb - Trichomoniasis kb Forms: - Medication Reconciliation Form kb - Antibiotic Education kb - Prescription Opioid Use kb - Patient Portal Instructions kb - Leadership Thank You Letter kb Prescriptions: - Flagyl 500 mg Oral Tablet - take 1 tablet ORAL route every 12 hours for 7 days; 14 tablet; Refills: 0, kb Product Selection Permitted Signatures: Dispatcher [employer] EDJenae Gaviria, SENIOR QUALITY ANALYST-C SENIOR QUALITY ANALYST-Mitchell Olguin MD MD cha Prokisch, Amanda, RN RN ap3 [place], RN RN bm8 Corrections: (The following items were deleted from the chart) 04/24 19:31 19:31 CBC+H.LAB.BRZ ordered. EDMS EDMS 19:31 19:31 COMPREHENSIVE METABOLIC PANEL+C.LAB.BRZ ordered. EDMS EDMS 19:31 19:31 LIPASE+C.LAB.BRZ ordered. EDMS EDMS 19:31 19:31 Test, Urine+UC.LAB.BRZ ordered. EDMS EDMS 19:31 19:31 Urinalysis+U.LAB.BRZ ordered. EDMS EDMS 19:31 19:31 Wet Prep+BA.LAB.BRZ ordered. EDMS EDMS 19:31 19:31 GC (Carlos/Chl) Probe VAGINAL+R.LAB.BRZ (Do not order if pt is under 13, order EDMS Culture instead) ordered. EDMS 19:31 19:31 Abdomen Pelvis W Con+CT.RAD.BRZ ordered. EDMS EDMS
--- NOTE | 2024-04-24 22:50 | ER ---
Nurse's Notes [facility] Name: Opal Tapia Age: 33 yrs Sex: Female : 1990 Arrival Date: 04/24/2024 Time: 19:18 Bed 5 Private MD: Diagnosis: Trichomoniasis, unspecified Presentation: 04/24 19:30 Chief complaint: Patient states: she has been having painful urination for 2 days with ap3 left sided flank pain. patient rates her pain as a 4/10 on the pain scale at this time. Coronavirus screen: At this time, the client does not indicate any symptoms associated with coronavirus-19. Ebola Screen: No symptoms or risks identified at this time. Risk Assessment: Do you want to hurt yourself or someone else? Patient reports no desire to harm self or others. Onset of symptoms was April 22, 2024. 19:30 Method Of Arrival: Ambulatory ap3 19:30 Acuity: MER 3 ap3 23:10 Initial Sepsis Screen: Does the patient meet any 2 criteria? No. Patient's initial bm8 sepsis screen is negative. Does the patient have a suspected source of infection? No. Patient's initial sepsis screen is negative. Triage Assessment: 19:31 General: Appears in no apparent distress. Behavior is calm, cooperative, appropriate ap3 for age. Pain: Complains of pain in left flank Pain currently is 4 out of 10 on a pain scale. Pain began 2-3 days ago. Neuro: Level of Consciousness is awake, alert, obeys commands, Oriented to person, place, time, situation, Appropriate for age. Cardiovascular: Patient's skin is warm and dry. Respiratory: Airway is patent Respiratory effort is even, unlabored, Respiratory pattern is regular, symmetrical. 19:31 : Reports burning with urination, pain in left flank(s). 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 - Infectious Disease History:: Denies. - Social history:: Smoking status: Reported history of juuling and/or vaping. Screenin:32 Abuse screen: Denies threats or abuse. Nutritional screening: No deficits noted. ap3 Tuberculosis screening: No symptoms or risk factors identified. 20:11 [facility] ED Fall Risk Assessment (Adult) History of falling in the last 3 months, bm8 including since admission No falls in past 3 months (0 pts) Confusion or Disorientation No (0 pts) Intoxicated or Sedated No (0 pts) Impaired Gait No (0 pts) Mobility Assist Device Used No (0 pt) Altered Elimination No (0 pt) Score/Fall Risk Level 0 - 2 = Low Risk Oriented to surroundings, Maintained a safe environment, Educated pt \T\ family on fall prevention, incl call for assistance when getting out of bed, Assessed \T\ reinforced patient's understanding of fall precautions, Hourly rounding (assess needs \T\ fall precautionary measures) done, Used ambulatory aids as needed (educated on \T\ assisted with). Assessment: 20:11 General: Appears in no apparent distress. comfortable, Behavior is calm, cooperative, bm8 appropriate for age. Pain: Complains of pain in abdomen and pelvis Pain currently is 4 out of 10 on a pain scale. Neuro: Level of Consciousness is awake, alert, obeys commands, Oriented to person, place, time, situation, Appropriate for age. Cardiovascular: Denies chest pain, Capillary refill < 3 seconds Patient's skin is warm and dry. Respiratory: Airway is patent Respiratory effort is even, unlabored, Respiratory pattern is regular, symmetrical. GI: : Reports burning with urination, discharge, from vagina that is pain lower quadrant(s) with urination. EENT: No signs and/or symptoms were reported regarding the EENT system. Derm: No signs and/or symptoms reported regarding the dermatologic system. Musculoskeletal: No signs and/or symptoms reported regarding the musculoskeletal system. 22:30 Reassessment: Patient appears in no apparent distress at this time. Patient and/or bm8 family updated on plan of care and expected duration. Pain level reassessed. Patient is alert, oriented x 3, equal unlabored respirations, skin warm/dry/pink. Patient states feeling better. Patient states symptoms have improved. Pain: Pain currently is 2 out of 10 on a pain scale. Vital Signs: 19:32 BP 117 / 75; Pulse 74; Resp 17; Temp 98.6(O); Pulse Ox 99% ; Weight 49.9 kg; Height 5 ap3 ft. 0 in. ; Pain 4/10; 20:11 BP 116 / 64; Pulse 80; Resp 17; Temp 98.6; Pulse Ox 100% ; Pain 4/10; bm8 22:30 BP 121 / 84; Pulse 106; Resp 18; Temp 98.6; Pulse Ox 100% ; Pain 2/10; bm8 19:32 Body Mass Index 21.48 (49.90 kg, 152.4 cm) ap3 19:32 Pain Scale: Adult ap3 20:11 Pain Scale: Adult bm8 22:30 Pain Scale: Adult bm8 Teodoro Coma Score: 20:11 Eye Response: spontaneous(4). Motor Response: obeys commands(6). Verbal Response: bm8 oriented(5). Total: 15. 22:30 Eye Response: spontaneous(4). Motor Response: obeys commands(6). Verbal Response: bm8 oriented(5). Total: 15. ED Course: 19:22 Patient arrived in ED. gm2 19:24 Jenae Saravia FNP-C [facility]. kb 19:24 Mitchell Stiles MD is Attending Physician. kb 19:30 Triage completed. ap3 19:31 Arm band placed on right wrist. ap3 19:46 Lis Logan RN is Primary Nurse. kd3 20:03 Inserted saline lock: 22 gauge in right hand, using aseptic technique. Blood collected. oe Flushed with 10 mL NS. 20:11 Patient has correct armband on for positive identification. Placed in gown. Bed in low bm8 position. Call light in reach. Side rails up X 1. Client placed on continuous cardiac and pulse oximetry monitoring. NIBP monitoring applied. electronic device monitor on. Pulse ox on. NIBP on. Door closed. Noise minimized. Warm blanket given. Verbal reassurance given. Head of bed elevated. 20:11 Assist provider with pelvic exam: Set up pelvic tray. Performed by Jenae CASTRO Specimens sent to lab. Patient tolerated well. 22:18 CT Abd/Pelvis - IV Contrast Only In Process Unspecified. EDMS 23:09 Provided Education on: post er care. bm8 23:09 IV discontinued, intact, bleeding controlled, No redness/swelling at site. Pressure bm8 dressing applied. Administered Medications: 20:11 Drug: NS 0.9% IV 1000 ml IV at 1 bolus Per protocol; 1000 mL bolus Route: IV; Rate: 1 bm8 bolus; Site: left hand; 22:31 Follow up: Response: No adverse reaction; IV Status: Completed infusion; IV Intake: bm8 1000ml Medication: 20:11 VIS not applicable for this client. bm8 Intake: 22:31 IV: 1000ml; Total: 1000ml. bm8 Outcome: 22:49 Discharge ordered by MD. valenzuela 23:09 Discharged to home ambulatory, bm8 23:09 Condition: stable 23:09 Discharge instructions given to patient, Instructed on discharge instructions, follow up and referral plans. no drinking with medication, no driving heavy equipment, medication usage, safety practices, Demonstrated understanding of instructions, follow-up care, medications, Prescriptions given X 1, 23:10 Patient left the ED. bm8 Signatures: Dispatcher [employer] EDMS Jenae Saravia, AUTOMATIC TRIMMING SEWER-C AUTOMATIC TRIMMING SEWER-Ckb Khadar Lockett Amanda, RN RN [id number] Lis Logan, RN RN kd3 Shoshana Flood 2 [place], RN RN bm8
[2024-04-25 05:23] VITALS: TEMP 98.6
[2024-04-25 05:29] VITALS: O2SAT 100
[2024-04-25 05:34] VITALS: BP 121/84
[2024-04-28 07:17] LABS: C.trachomatis RNA,TMA Not Detected (Not Detected); N.gonorrhoeae RNA,TMA Not Detected (Not Detected)
== END 2024-04-24 23:10 | disposition home or self-care (01) ==
LOC: ER 19:18
DX: A59.9 Trichomoniasis, unspecified (principal)
CPT/HCPCS: 85025; 81001; 36415; 81025; 87210; 83690; 80053; 87590; 87490; 74177; Q9967; J7030; 96360; 96361; 99285